=== PATIENT | male | born 1950 | race Caucasian/White ===

== ENCOUNTER 2017-01-05 01:13 | Inpatient (IN) | payer MEDICARE, MEDICAID ==
[~2017-01-05] VITALS: Ht 182.9 cm; Wt 100.0 kg
[2017-01-05] MEDS ORDERED: LORazepam 1 mg Tablet PO PRN (03:55)
[2017-01-05] MEDS ORDERED: Magnesium Hydroxide 10 mL Oral Concentration PO PRN (03:55)
[2017-01-05] MEDS ORDERED: Alum-Mag Hydrox-Simeth 30 mL Suspension PO PRN (03:55)
--- NOTE | 2017-01-05 04:06 | NUR ---
admit note nursing 11-7 this is a 66 year old male who was brought to [facility] from his residence at [facility]. he was medically cleared, evaluated and detained as gravely disabled. has a hx of schizophrenia, has refused medication on and off, declines assistance with adl's and cannot care for himself, appears to need stand by assistance to transfer and uses a wheelchair. he arrived by stretcher with ambulance crew and security at 0320. refused to allow staff to assist him [don't touch me] and crawled from the stretcher to the bed. unresponsive to staff attempt to orient patient and offer assistance. appears to be responding to internal stimuli muttering to himself. he is currently lying quietly in bed with direct staff observation. physical assessment- refused staff attempt to assess patient. shows no signs of apparent physical distress. patient unable to complete the admission process, given bed 230 with one to one staff direct observation and q 15 minute assessments. darian
[2017-01-05] MEDS ORDERED: FLUP25VI2 (07:06)
[2017-01-05] MEDS ORDERED: INSU100V7 SUBQ (07:06)
[2017-01-05] MEDS ORDERED: ASPI-973 PO (07:06)
[2017-01-05] MEDS ORDERED: LISI10TA (07:06)
[2017-01-05] MEDS ORDERED: LORA1TAB (07:06)
[2017-01-05] MEDS ORDERED: NOV100I SUBQ (07:06)
[2017-01-05] MEDS ORDERED: TOPI-31 (07:06)
[2017-01-05] MEDS ORDERED: PRAV80TA2 (07:06)
[2017-01-05] MEDS ORDERED: METF850T2 (07:06)
[2017-01-05] MEDS ORDERED: PIOG30TA26 (07:06)
[2017-01-05] MEDS ORDERED: INSULIN ASPART 5 UNIT SUBQ SCH (11:30)
--- NOTE | 2017-01-05 13:21 | NUR ---
Nursing Note [id number] Behavior S/O: Pt states he is not diabetic & never has been. Pt's blood sugar at 0800 was 281. At 1100 it was 271. Pt evaluated by psychiatrist. Pt has refused to walk to dining room & has not had breakfast or lunch. Radha Rutledge contacted ([phone]) at 1330. Pt has been in a wheel chair at least 12 years. Dx for immobility is osteoarthritis. Pt able to transfer & wheel safely. Pt given a w/c. He transferred himself to chair & wheeled himself to dining room for lunch. A: Pt has no insight into illnesses or why he is in the hospital. P: Provide supportive environment. Monitor medications & effects.
[2017-01-05 13:30] VITALS: BP 135/87; PULSE 106; RESP 16
[2017-01-05] MEDS ORDERED: Ziprasidone 20 mg/mL Inj IM PRN (13:50)
--- NOTE | 2017-01-05 15:07 | HP ---
[address] [address] HISTORY AND PHYSICAL PATIENT: SHARRI YOUNG : 1950 MR#: [id number] ADMIT: 01/05/2017 JOB ID: [id number] IDENTIFICATION OF PATIENT: The patient is a 66-year-old male admitted under 14-day order from [place], [place]. The patient reportedly is a long-term client of [facility] treatment services with a noted history of schizophrenia paranoid type and recent refusal of medications with significant decline of function and concern of imminency of danger of self with refusal of all medications including insulin. CHIEF COMPLAINT: "I'm not diabetic. I have seen the world expert who is from [place] who indicated that there is nothing wrong with me." HISTORY OF PRESENT ILLNESS: As stated above, the patient is a 66-year-old male who reportedly was admitted via a 14-day order with significant concern of decline of function and status of grave disability. The patient reportedly has a long-term history of diabetes and is insulin dependent. He reportedly has refused all medications by history, including dose administration of Prolixin Decanoate 25 mg IM q.2 weeks, insulin Lantus and NovoLog, and additional medications for various other medical complexities. On interview the patient was quite paranoid and appeared to be responding to internal stimulus throughout. He made intermittent eye contact. He openly identified that he is unable to walk and requires a wheelchair. This was later confirmed via nursing staff that he has been wheelchair-bound at [facility] facility for the past 12 years. Evidently the patient has a history of osteoarthritis and that they have tried to intervene with physical therapy however the patient has refused and due to his significant impairment remains in a wheelchair. This was not noted with referral. In meeting with myself, lining caser, and the medical student, the patient again appeared to be quite paranoid, psychotic, he identified that he has met with the world expert on diabetes from [place] and that he was informed that he does not have diabetes. He indicated that he is originally from [place], [place], born and raised, graduated from [employer] and went to [employer] with no degree in the state of [place]. He indicates that he has lived in [place] for the past 12 years in various cities including [facility] and [place]. He denies any usage of alcohol or substances. He indicated that he was at the age of [age] but at other points of interview the patient denied that he was or had children. He indicates that he does have an older brother who resides in [place] who visits him periodically. PAST MEDICAL HISTORY: Substantial for no allergies to medications. MEDICATIONS: Of current include: 1. Metformin 850 mg b.i.d. 2. Actos 30 mg daily. 3. NovoLog 5 units t.i.d. with meals. 4. Lantus 35 units q.h.s. 5. He reportedly also is scheduled to receive Prolixin Decanoate 25 mg intramuscularly every two weeks and Prolixin 5 mg b.i.d. Last dose of administration is unknown at this time. PHYSICAL EXAMINATION: He refused a physical exam at this point. PAST PSYCHIATRIC HISTORY: Substantial for previous hospitalization at [facility]. Records will be obtained. He denies any recent hospitalization. SOCIAL HISTORY: Currently patient lives at the above residential treatment facility. He indicates that he was at the age of [age] however there is questionable validity. He denies any other family member involvement. He indicates that he does have a guardian assigned, Selina Sommers. FAMILY HISTORY: Unknown. DEVELOPMENT HISTORY: As noted above. MENTAL STATUS EXAMINATION: General appearance: The patient is semi-cooperative. He is disconnected from reality and shows visual tracking throughout. His speech is latent. His mood is mildly dysphoric. His affect is irritable, labile. His thought process shows loose and disorganized thinking. He has evidence of random flight of ideas. His thought content: He denied any evidence of current suicidal, homicidal ideation. He appears to be responding to internal stimulus. He denies evidence of auditory or visual hallucinations however there is question of validity. He was alert, oriented to place only. Attention and concentration are poor. Insight and judgment are poor. IMPRESSION: [place] I: Schizophrenia, paranoid type. AXIS II: Deferred. AXIS III: History of insulin dependent diabetes. AXIS IV: Stressors are noted for chronic mental health issues, noncompliance with medications. AXIS V: Global Assessment of Functioning, current 25. PLAN: 1. Recommendations for introduction of Geodon 20 mg intramuscular b.i.d. if the patient refuses oral doses of Prolixin at 5 mg b.i.d. 2. Second opinion has been signed by Dr. Thomson for the above order. 3. Continuation of Prolixin Decanoate 25 mg with increased dose regimens to 25 mg weekly for now. 4. Continuation of Lantus 35 units q.h.s., NovoLog 5 units t.i.d. with meals. 5. Continuation of lisinopril 10 mg daily. 6. Discontinuation of Ativan. 7. Continuation of aspirin 81 mg daily. 8. Discontinuation of Topamax. 9. Collaboration with current residential treatment facility as well as to [facility] for further records. MTDD
[2017-01-05] MEDS ORDERED: Glucose 40% Oral Gel 15 Gm Tube PO PRN (15:20)
[2017-01-05] MEDS ORDERED: Dextrose 10% 250 ML IV PRN (15:20)
[2017-01-05] MEDS: Insulin LISPRO Medium-Dose Scale SUBQ SCH ×3 (18:17→21:07)
--- NOTE | 2017-01-05 19:01 | NUR ---
Observations 0900 - 2130 Pt affect and mood was isolative, guarded and withdrawn. Pt was pleasant, polite and cooperative when approached. Pt maintained behavior throughout the shift. Pt was unsocial and mostly keeps to himself. Pt attended lunch and dinner in D.R. and ate 100% of his meals. Pt uses wc to get around the unit (see nurses note) Pt was observed every 15 minutes through the shift as ordered.
[2017-01-05] MEDS: FLUPHENAZINE DECANOATE 25 MG/ML IM SCH (21:00)
[2017-01-05] MEDS: Insulin GLARgine 100 Unit/mL Syringe SUBQ SCH (21:00)
--- NOTE | 2017-01-05 23:11 | NUR ---
Nurses Note Evening Patients' BS at [phone]. He received 13 units Lispro Insulin Sliding Scale. BS at HS = 296. Patient refused Lispro coverage and accepted Lantus 35units as scheduled. Patient also refused Prolixin Decanoate tonight as well. Patient has been isolative except for meals. He has been irritable, dismissive while constantly mumbling under his breathe. Will maintain q 15min. checks for safety and support.
--- NOTE | 2017-01-06 06:02 | NUR ---
nursing, nights, 11-7 s/o- has appeared to sleep after 2330 during q 15 minute assessments. a- no apparent distress. p- monitor behavior/emotional state, quality, times and amount of sleep, use and effect of medication. darian
[2017-01-06] MEDS: Insulin LISPRO Medium-Dose Scale SUBQ SCH ×5 (07:38→22:30)
--- NOTE | 2017-01-06 11:02 | NUR ---
day shift Nursing note S/O-"I do not want breakfast but I do need the urinal." Pt. did not want assistance to the BR. He prefers to keep to himself in his room and mutters under his breath. He declined when asked if he needed to go to the BR. He has indirect eye contact and responds to staff. He stated he would eat some lunch. He is cooperative and compliant when typewriter ribbon winder takes his blood sugar levels. A-Responding to internal stimuli. P-Monitor for safety per protocol. Assess efficacy of meds to manage target sxs. Encourage engagement with peers.
[2017-01-06 12:30] VITALS: BP 103/58; PULSE 90; RESP 15
--- NOTE | 2017-01-06 13:17 | PROG NOTE ---
[address] [address] PROGRESS NOTE PATIENT: SHARRI YOUNG : 1950 MR#: [id number] ADMIT: 01/05/2017 JOB ID: [id number] DATE: 01/06/2017 CHIEF COMPLAINT: "I took my medicine." This per patient report. HISTORY OF PRESENT ILLNESS: As stated above the patient did identify that he did take his medications as directed but evidently refused his Prolixin decanoate yesterday. He reportedly has been cooperating with administration of lisinopril, aspirin, and oral doses of Prolixin, and his injectable insulin. Clarification was noted through his previous residential treatment program that he had been wheelchair-bound over the past 12 years and he has been given usage at this time based on their previous attempts of intervention. On interview the patient was quite guarded. He made intermittent eye contact. He is essentially declined any further conversation and stated that he preferred to stay to his room. He does appear to be internally preoccupied throughout the course of conversation. OBJECTIVE: On mental status exam, he made intermittent eye contact. His speech was limited, concrete. His mood is mildly dysphoric. His affect is irritable, labile. His thought process: He denied any evidence of current suicidal, homicidal ideation. He was alert, oriented to place only. His attention and concentration are poor. Insight and judgment are poor. PHYSICAL EXAM: Vital signs of current: Temperature is 36.2, pulse 106, respirations 16, BP 135/87. MEDICATION REVIEW: Includes Lantus 35 units q.h.s., Humalog sliding scale with meals, Prolixin 5 mg b.i.d., Prolixin decanoate which the patient refused yesterday (he will be informed that he needs to cooperate with the administration), lisinopril 10 mg daily. ASSESSMENT: [place] I: Schizophrenia, paranoid type. [place] II: Deferred. [place] III: 1. History of insulin-dependent diabetes. 2. History of hypertension. [place] IV: Stressors are noted for chronic mental health issues, noncompliance with medications. [place] V: Global Assessment of Functioning of current 30. PLAN: 1. Recommendations for forced administration of Prolixin decanoate. 2. Continuation of all other medications noted. 3. Records are being obtained from [facility] with prior identification, also his current care providers noted.
--- NOTE | 2017-01-06 16:33 | NUR ---
Observations 0700 to 1900 Pt ate a snack. Pt has a flat but pleasant affect. Pt refused to set daily goal and declined to shower. Pt uses a wheel chair for mobility and uses a urinal. Pt spends free time sitting in room with no stimulation. Pt is not observed interacting with peers. Respirations were observed while asleep. Staff completed 15 min close observations as ordered.
[2017-01-06] MEDS: Insulin GLARgine 100 Unit/mL Syringe SUBQ SCH (22:29)
--- NOTE | 2017-01-06 22:50 | NUR ---
fast food shift lead [id number] Pt slept most of the shift and woke up to use the urinal. BG level 217. "I am only taking the Lantus and I don't want the other one." Refused Lispro 2unit;however, he took Lantus. Pt had very small emesis x1 and no other episodes noted. No behavioral issues or outburst. Continue to monitor for mood changes, emotional wellbeing, and q15min checks for safety. Care continues.
--- NOTE | 2017-01-07 05:35 | NUR ---
nursing, nights, 11-7 s- i don't need your help. can i have a snack ? o- up in wheel chair a start of the shift. resistant to staff offer of assistance. has appeared to sleep after 0145. assessed q 15 minutes. a- no apparent distress. p- monitor behavior/emotional state, quality, times and amount of sleep, use and effect of medication. darian
[2017-01-07] MEDS: Insulin LISPRO Medium-Dose Scale SUBQ SCH ×4 (07:42→20:52)
[2017-01-07 11:35] VITALS: BP 118/69; PULSE 16; RESP 16
--- NOTE | 2017-01-07 12:15 | PROG NOTE ---
[address] [address] PROGRESS NOTE PATIENT: SHARRI YOUNG : 1950 MR#: [id number] ADMIT: 01/05/2017 JOB ID: [id number] DATE: 01/07/2017 CHIEF COMPLAINT: "I did agree to take my insulin." This per patient report. HISTORY OF PRESENT ILLNESS: As stated above the patient did identify that he did agree finally to take his doses of insulin. He indicates that he does not believe that he is diabetic but he is willing to cooperate with staff in an attempt to get back home. He reports that he remains isolated to the room. He has refused participation in group activities and insists on using a wheelchair. He reportedly has been medication compliant with administration of insulin, both Lantus and Humalog, and doses of Prolixin 5 mg b.i.d. He reportedly remains compliant with lisinopril and aspirin as well. His blood sugars have been remaining in the low 260s. OBJECTIVE: On mental status exam he does have evidence of visual tracking throughout. He has refused any shower or other self-care. He has been semi compliant with medications with nursing encouragement. His speech is limited and concrete. His mood is dysphoric. Affect is labile. His thought process shows no evidence of racing thoughts, flight of ideas, loose or disconnected thinking. Thought content: He denied any evidence of suicidal, homicidal ideation. He continues to deny hallucinations of auditory, visual complexes; however, appears to be responding to internal stimulus throughout. No evidence of delusions other than the belief that he is not diabetic with previous identification that he met with a world renowned expert from [place]. He is alert. Oriented to time and place. His attention and concentration are fair. Insight and judgment are poor. PHYSICAL EXAMINATION: Vital signs of current: Temperature is 36.2, pulse 90, respirations 15, BP 103/58. MEDICATION REVIEW: Includes Lantus 35 units q.h.s.; Humalog sliding scale, 10 units were given this morning; Prolixin 5 mg b.i.d.; lisinopril 10 mg daily. ASSESSMENT: [place] I: Schizophrenia, paranoid type. [place] II: Deferred. [place] III: 1. History of insulin-dependent diabetes. 2. History of hypertension. [place] IV: Stressors are noted for chronic disturbance of mental health, noncompliance with medications. [place] V: Global Assessment of Functioning of current 35. PLAN: 1. Recommendations for continuation of all medications noted. 2. Recommendations for collaboration with his previous care providers with eventual plan of discharge and return. JAIR
--- NOTE | 2017-01-07 13:45 | NUR ---
Nursing Dayshift Morning blood glucose was 262. He initially declined his morning dose of Humalog stating "I only take Lantus. I don't take Humalog only Lantus." Informed pt this was short acting insulin to cover his meals. He then called out and stated "Nurse, I will take Humalog." Pt received regularly scheduled Humalog 5 units along with sliding scale Humalog 5 units. Pt using urinal at bedside and his bedside commode. Pt independently uses wheelchair to get around the unit. His noon blood glucose was 139, no extra coverage required. He received his noon time dose of Humalog 5 units without incident. Pt malodorous and encouraged to shower which he has done. When not out for meals pt has chosen to remain in his room. No delusional statements. He has maintained behavioral control.
--- NOTE | 2017-01-07 17:27 | NUR ---
Observations [id number] Pt isolative to room much of the day, not attending breakfast. Pt did attend lunch and dinner, but only eating about 50% of meals. He is limited with communication, very short responses to staff and didn't interact with other patients. Pt was encouraged strongly to shower due to body odor, he resisted but eventually showered. He continues to use urinal instead of bathroom. Pt did spend time in dining area in afternoon/evening. He was observed every 15 minutes of shift as directed.
[2017-01-07] MEDS: Insulin GLARgine 100 Unit/mL Syringe SUBQ SCH (20:52)
--- NOTE | 2017-01-08 04:25 | NUR ---
7p-7a PT has been in his room most of the night. Pt comes out for a snack and meds only. PT was noted to have some urine on his pants. WHen asked about it, the pt stated "sorry, it was an accident." Pt declined to change his scrubs even after he spilled water all over himself. PT uses w/c for mobilization and is able to transfer independently from chair to bed and BSC. When asked how he is feeling, pt answers "I am fine." He does not care to ellaborate. Mood is flat. BG at HS was 148 and did not require s/s. PT needed some persuasion to take his glargine, but did so. PT was offered ambien for sleep, but refused twice. Pt is currently sleeping. Will continue with current POC and monitor for any A/R.
[2017-01-08] MEDS: Insulin LISPRO Medium-Dose Scale SUBQ SCH ×4 (07:55→22:00)
[2017-01-08 08:50] VITALS: BP 110/62; PULSE 89; RESP 16
--- NOTE | 2017-01-08 11:50 | PROG NOTE ---
[address] [address] PROGRESS NOTE PATIENT: SHARRI YOUNG : 1950 MR#: [id number] ADMIT: 01/05/2017 JOB ID: [id number] DATE: 01/08/2017 CHIEF COMPLAINT: "I took my medicines, when do you think I can go back home." This is per patient report. HISTORY OF PRESENT ILLNESS: As stated above, the patient identified that he is cooperative with medication administration but per nursing staff, the patient continues to refuse injections of Prolixin Decanoate. He was informed that he is currently under a court order and that the medication needs to be administered. I have instructed the nursing staff to administer the injection today. MENTAL STATUS EXAMINATION: He was bright, cooperative, interactive. He denied any evidence of current suicidal, homicidal ideation. He continues to be mildly paranoid, but appropriate. He denies any evidence of active hallucinations, delusions. He was alert, oriented to time, place, and person. His attention and concentration are limited. His insight and judgment are poor. PHYSICAL EXAMINATION: Vital signs of current. Temperature is 36.2, pulse 89, respirations 16, BP 110/62. MEDICATION REVIEW: Includes: 1. Prolixin 5 mg b.i.d. 2. Prolixin Decanoate 25 mg IM q.2 weeks. 3. Aspirin 81 mg daily. 4. Lisinopril 10 mg daily. 5. Lantus 35 units at bedtime and sliding scale of Humalog. ASSESSMENT: [place] I:Paranoid schizophrenia. [place] II:Deferred. [place] III:1. History of insulin dependent diabetes. 2. History of hypertension. [place] IV:Stressors are noted for chronic mental illness; refusal of care. [place] V:GAF current 35. PLAN: 1. Recommendations for probable discharge on Sunday of this week back to his original supportive housing. 2. Continuation of all medications noted with injections of Prolixin and Decanoate to be administered today via nursing staff.
--- NOTE | 2017-01-08 14:37 | NUR ---
Nursing Dayshift Pt's morning BG was 176 requiring extra coverage of Humalog 1 unit, noon BG was 298 requiring extra coverage of Humalog 5 units. When not out for meals pt has chosen to remain in his room. No delusional statements. He has maintained behavioral control. Denies AVH. Continues to use a wheelchair to maneuver about the unit. He was offered a shower and he stated "I took one yesterday, I would like to take one tomorrow after breakfast." Pleasant upon interaction, isolative on the unit.
--- NOTE | 2017-01-08 16:49 | NUR ---
Observations [id number] Pt continues to isolate to room, limited interaction with peers and staff. Pt did attend all meals, eating an average of 50%. Pt not good with ADL's, strong body odor and lack of desire to shower. Staff encouraged showers throughout the day but pt declined. Pt sat on bed and was unable to get back in wheelchair, asking staff for help. Pt did not participate in any groups or unit activities. Pt was observed every 15 minutes of shift as directed.
--- NOTE | 2017-01-08 17:10 | NUR ---
nursing note: Mental status: Pt denies any SI or HI or thought disturbance. Is logical and linear in our conversation. Says he got here "because the wheel on my WC rolled off and I went to the office and they said there was no loaner and I was angry and raised my voice I guess and they called it a crisis." He is looking forward to going back to his place at [facility] where he has been for 9 years. Says he has a guardian named Selina Chief [employer] who is his guardian and may be working on a new wheelchair . "I have the money to pay for it." Physical: Denies pain, and reports sleeping well. BG at dinner was 122 and no sliding scale was needed.Says he's been in his WC for about 15 years, "but I can feed myself and shower by myself. "Grooming is poor and encouraged a shower but pt declined"I'll take one tomorrow" Got fresh scrubs and wipes and encouraged him to use these. Affect: flat with fairly good eye contact
[2017-01-08] MEDS: Insulin GLARgine 100 Unit/mL Syringe SUBQ SCH (21:00)
--- NOTE | 2017-01-09 05:05 | NUR ---
Observations 2300 to 0700 Pt was awake in [place] sitting in WC when my shift started and went to his room a short time later. Pt first appeared asleep at 2030 according to q15 check sheet, awoke at 2200 and back asleep from 0015 until 0345. Pt was observed every 15 minutes through the night as ordered. Pt had broken sleep and is currently awake in his room sitting up with lights off. When asked how he was doing he stated "fine".
--- NOTE | 2017-01-09 06:07 | NUR ---
Nursing Note Judge 11pm -7am Pt asleep at start of shift but got up several times throughout the night. No complaints voiced or observed. Monitored pt q 15 minutes for safety location and accountability
[2017-01-09] MEDS: Insulin LISPRO Medium-Dose Scale SUBQ SCH ×4 (07:54→21:27)
--- NOTE | 2017-01-09 10:46 | PROG NOTE ---
[address] [address] PROGRESS NOTE PATIENT: SHARRI YOUNG : 1950 MR#: [id number] ADMIT: 01/05/2017 JOB ID: [id number] DATE: 01/09/2017 CHIEF COMPLAINT: "I will agree to the shot today" this is per patient report. HISTORY OF PRESENT ILLNESS: As stated above, the patient did agreed to administer the Prolixin Decanoate with clear understanding that he needed to cooperate with all medication. He indicates that he has been informed that his guardian is cooperating and arranging transport back to [place] on Sunday of this week. He reportedly has been cooperative with all medication administration and also cooperative with staff with shower interventions this morning. He makes good eye contact this morning indicating that he is hopeful that he will be able to get back to his place. He did spend some time identifying that he has several friends at [employer] and states that he misses his own stuff. OBJECTIVE: On mental status exam he was cooperative, he maintained good eye contact. His speech was much more articulated. His mood was neutral. Affect was congruent. His thought process shows no evidence of racing thoughts, flight of ideas, loose or disconnected thinking. Thought content, he denied any evidence of current suicidal, homicidal ideation. He continues to deny any perceptual distortion of hallucinations, delusions but appears to be responding to internal stimulus throughout the daytime hours per staff report. He was alert, oriented to time, place, and situation. He was able to recall my name. His insight and judgment were fair. PHYSICAL EXAMINATION: Vital signs are current. Temperature is 36.2, pulse 89, respirations 16, BP 110/62. MEDICATION REVIEW: Includes: 1. Lantus 35 units at bedtime. 2. Humalog sliding scale, 6 units given this morning. 3. Prolixin 5 mg b.i.d. 4. Prolixin Decanoate to be administered today 25 mg IM. 5. Aspirin 81 mg daily. 6. Lisinopril 10 mg daily. ASSESSMENT: Margie I:Schizophrenia paranoid type Margie II:Deferred Margie III:1. History of insulin dependent diabetes 2. History of hypertension Margie IV:Stressors are noted for: 1. Disturbance of coping 2. Refusal of medications 3. Noncompliance as prior Margie V:GAF current 35 PLANS: 1. Recommendation to proceed for discharge on Sunday. 2. Continuation of all medications as noted.
[2017-01-09] MEDS: FLUPHENAZINE DECANOATE 25 MG/ML IM SCH (11:49)
--- NOTE | 2017-01-09 12:03 | NUR ---
Nursing Dayshift Pt received Prolixin 25mg IM without any difficulty. His Am BG was 176 with 1 unit of Humalog extra coverage given, noon BG was 149 with no extra coverage required. He has been eating meals, attending to ADLs to the best of his ability. He has clean clothing on and fresh bed linens. Pt likes to maintain his independence. Minimal engagement with peers or staff. Denies anxiety, depression or AVH. No behavioral outbursts. Continue to monitor and provide support as needed.
--- NOTE | 2017-01-09 20:05 | NUR ---
Nurses Note evening Patient has been isolative to his room except for dinner. He doesn't interact with peers and has been minimally verbal with staff. Patient has refused to tend to personal hygiene needs. He does accept medications and self administers his insulin. Will encourage verbalization of thoughts and concerns,continued medication compliance. Addendum: 01/09/17 at 2009 by YU DOLL RN Amended: Links added.
[2017-01-09] MEDS: Insulin GLARgine 100 Unit/mL Syringe SUBQ SCH (21:27)
[2017-01-10] MEDS: Insulin LISPRO Medium-Dose Scale SUBQ SCH ×4 (07:45→21:49)
--- NOTE | 2017-01-10 11:45 | NUR ---
Nursing Dayshift Pt remains reclusive and stays in his room but is out for meals. Morning BG was 119 and noon BG was 118, no extra coverage required. When approached by staff he stated "I am fine! I don't feel like talking right now!" Pt remains abrupt and denying any issues. He has remained behaviorally appropriate on the unit. Accepting scheduled medication.
--- NOTE | 2017-01-10 16:01 | PROG NOTE ---
[address] [address] PROGRESS NOTE PATIENT: SHARRI YOUNG : 1950 MR#: [id number] ADMIT: 01/05/2017 JOB ID: [id number] DATE: 01/10/2017 CHIEF COMPLAINT: "I think I'm doing good." This is per patient report. HISTORY OF PRESENT ILLNESS: As stated above, the patient openly identified significant improvement with his status. He denied any evidence of acute distress. His speech was of normal tone, frequency, and volume. He reports that he is aware that he will be transported back to his residential placement on Sunday. OBJECTIVE: On mental status exam, he was bright, cooperative, seen in the Day Area. He makes good eye contact. He denies any current distress. His speech is of normal tone, frequency, and volume. His mood is neutral. Affect was congruent. His thought process showed no evidence of racing thoughts, flight of ideas, loose or disconnected thinking. Thought content, he denied any evidence of current suicidal or homicidal ideation. No evidence of active hallucinations or delusions; however there is questionable validity. The patient maintains to be noted with mild degrees of paranoia and visual tracking. He was alert, oriented to time and place. Attention and concentration intact. Insight and judgment are gaining. PHYSICAL EXAMINATION: Vital signs are current. Temperature is 36.2, pulse 89, respirations 16, BP 110/62. MEDICATION REVIEW: Includes: 1. Lantus 35 units q.h.s. 2. Humalog sliding scale. 3. Prolixin 5 mg b.i.d. 4. Prolixin Decanoate 25 mg weekly. 5. Lisinopril 10 mg daily. ASSESSMENT: AXIS I: Schizophrenia, paranoid type. AXIS II: Deferred. AXIS III: 1. Insulin-dependent diabetes 2. Hypertension. AXIS IV: Stressors are noted for chronic mental health issues. AXIS V: Global Assessment of Functioning, current 35 PLAN: 1. Recommendations to continue with discharge on Sunday. 2. Continuation of all medications noted.
--- NOTE | 2017-01-10 18:37 | NUR ---
[facility] Day Shift Pt maintained behavioral control throughout the shift. Pt affect appears flat, blunt. Pt spends almost the entire shift resting in his room. Pt is not social with staff or peers when active on the unit. Pt is malodorous. Pt did not attend any group activities. Pt ate approx 30% of all meals.
[2017-01-10 18:43] VITALS: BP 150/65; PULSE 99; RESP 16
--- NOTE | 2017-01-10 18:43 | NUR ---
Inter Com Servicer/Counselor: S: "I think I'm doing good." O: Patient slept 5 hours last night per staff. Patient denies S/I and H/I. He also denies auditory and visual hallucinations. Depression and anxiety were not rated. This medical underwriter left a voice message for patient's out-patient regular senior care provider at [facility], requesting a call back to discuss patient's discharge. A: Patient is cooperative, bright, improving, insight and judgment are gaining. P: Follow the care plan, coordinate with out-patient providers.
[2017-01-10] MEDS: Insulin GLARgine 100 Unit/mL Syringe SUBQ SCH (21:08)
--- NOTE | 2017-01-10 23:51 | NUR ---
Nurses Note Evening Patient has remained isolative to his room except for meals. He refused encouragement to shower stating he would shower Sunday morning before discharge. His blood sugars have been within normal limits or only slightly elevated. He remains medication compliant without adverse effects. Will maintain q 15min checks for safety and support. Addendum: 01/10/17 at 8792 by YU DOLL RN Amended: Links added.
--- NOTE | 2017-01-11 05:02 | NUR ---
nursing, nights, 11-7 s- no i don't want to shower. ok i'll put those on. can i have some milk. no i'm ok. o- quiet in bed at the start of the shift. has appeared to sleep after 2300 to midnight. came to staff in wheelchair requesting milk. changed into clean scrubs. blood sugar is 128 at 0250. remained in his wheelchair until returning to bed at 0500. assessed q 15 minutes. a- inadequate sleep, quiet, appears clearer, uninterested in staff offer of assistance, no apparent physical distress. p- monitor behavior/emotional state, quality, times and amount of sleep, use and effect of medication. darian
[2017-01-11] MEDS: Insulin LISPRO Medium-Dose Scale SUBQ SCH ×4 (08:01→22:00)
[2017-01-11 08:40] VITALS: BP 133/63; PULSE 101; RESP 16
--- NOTE | 2017-01-11 14:41 | NUR ---
Nursing Dayshift Mohsen continues with no change. He did express his desire to call his guardian Selina but could not remember the number. Staff does not have this phone number. Morning blood glucose 153 w/ 1 unit Humalog extra coverage. Noon blood glucose 234 with extra coverage provided at that time. Pt remains isolative to his room. Minimal engagement with peers or staff.
--- NOTE | 2017-01-11 14:43 | PROG NOTE ---
[address] [address] PROGRESS NOTE PATIENT: SHARRI YOUNG : 1950 MR#: [id number] ADMIT: 01/05/2017 JOB ID: [id number] DATE: 01/11/2017 CHIEF COMPLAINT: "So do you think my guardian will pick me up." This is per patient report. HISTORY OF PRESENT ILLNESS: As stated above, the patient did identify that he is aware of our plan for discharge for tomorrow. Collaboration with his current guardian and [facility] in [place] is currently in process. There is some question whether the facility of prior will receive the patient back for care management. OBJECTIVE/MENTAL STATUS EXAMINATION: The patient's speech is somewhat hesitant and guarded. He was casually dressed in scrubs. He maintained good eye contact with myself but shows some elevated anxiety with new staff. His mood was mildly anxious. His affect is guarded. His thought process shows no evidence of racing thoughts, flight of ideas, loose or disconnected thinking. Thought content, he denied any evidence of current suicidal, homicidal ideation. No evidence of active hallucinations, delusions. He continues to be mildly paranoid. He was alert, oriented to time and place. Attention and concentration intact. 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 Insight and judgment are fair. PHYSICAL EXAMINATION: Vital signs are current. Temperature is 36.3, pulse 99, respirations 16, BP 150/65. MEDICATION REVIEW: Includes: 1. Lantus 35 units q.h.s. 2. Humalog sliding scale. 3. Prolixin 5 mg b.i.d. 4. Prolixin Decanoate, last injection on January 05, next injection scheduled for January 19. 5. Lisinopril 10 mg daily. ASSESSMENT: AXIS I: Schizophrenia, paranoid type. AXIS II: Deferred. AXIS III: 1. History of diabetes, insulin dependent. 2. History of hypertension. AXIS IV: History for chronic mental health issues, transitioning back to his previous residence. AXIS V: Global Assessment of Functioning, current 38. PLAN: 1. Recommendation for discharge tomorrow morning. 2. Continuation of all medications noted.
--- NOTE | 2017-01-11 17:44 | NUR ---
Dipper And Baker/Counselor: S: "I need Esperanza Sommers's phone number, she's picking me up tomorrow." O: Patient only slept 1 hour last night per staff. Patient denies S/I and H/I. He also denies auditory and visual hallucinations. Depression and anxiety were not rated. This typewriter aligner spoke with Jennifer at [facility], Jennifer stated that [place] will not allow patient to return upon discharge. This typewriter aligner spoke with patient's guardian, Christian, after speaking with Jennifer from [place] and informed Christian that patient is not allowed back at [facility]. Christian stated that [facility] needs to find a place for patient to go or keep patient in [facility] until we find housing for him (patient). Patient scheduled to discharge tomorrow. A: Patient is cooperative, bright, improving, insight and judgment are gaining. P: Follow the care plan, coordinate with out-patient providers.
--- NOTE | 2017-01-11 18:23 | NUR ---
Observations [id number] Pt continues to isolate to room, only attending meals. He responds with very short answers and presents as ambivalent. Pt continues to be malodorous and resistant to showering. Pt requested to obtain his guardians phone number in the afternoon. He attended all meals, eating 100%. He was observed every 15 minutes of shift as directed.
[2017-01-11] MEDS: Insulin GLARgine 100 Unit/mL Syringe SUBQ SCH (21:00)
--- NOTE | 2017-01-12 02:52 | NUR ---
Observations 1900 to 0700 Pt did not attend wrap up group. Pt ate a snack. Pt has a flat, blunt affect. Pt remains in wheelchair throughout shift and has poor hygiene. Pt maintained behavioral control and showed no signs of abnormal behavior. Pt refuses to sleep in bed and rest intermittently in and out bed. Pt respirations were observed when asleep. Staff completed 15 min close observations as ordered.
--- NOTE | 2017-01-12 05:38 | NUR ---
Medications Patient refused HS medications including HS blood glucose check and insulin. Offered medications multiple times but patient stated "not tonight". Patient instructed no further snacks would be given to prevent hyperglycemia in the morning since he refused his insulin and HS blood glucose checks. Will continue to encourage compliance.
[2017-01-12] MEDS: Insulin LISPRO Medium-Dose Scale SUBQ SCH ×4 (08:14→22:00)
[2017-01-12] MEDS: FLUPHENAZINE DECANOATE 25 MG/ML IM SCH (08:15)
--- NOTE | 2017-01-12 14:08 | PROG NOTE ---
[address] [address] PROGRESS NOTE PATIENT: SHARRI YOUNG : 1950 MR#: [id number] ADMIT: 01/05/2017 JOB ID: [id number] DATE: 01/12/2017 CHIEF COMPLAINT: "So, where am going to go?" This per patient report. HISTORY OF PRESENT ILLNESS: As stated above, the patient did identify that he is aware that he will not be going back to [facility]. Reportedly at this time EUGENE, the nurse case management, has informed the guardian that it is their responsibility to pursue alternative placement options. He reportedly last evening refused his Lantus per staff report and therefore was not given a snack last evening. He remains quite paranoid at times but is redirectable for self-care. Discussion was held with the treatment team that the patient will need to be placed in alternative placement options in the [facility] and his 14 day order will be running out next Sunday per report. The guardian will be held responsible for alternative placements. OBJECTIVE: On mental status exam, the patient made intermittent eye contact. He continues to be mildly paranoid and responding to internal stimulus. His medication administration included another dose of Prolixin decanoate at 25 mg. He remains on oral doses of Prolixin and has been cooperative with medication. His speech is of normal tone, frequency, and volume. His mood is neutral. Affect was congruent. His thought process showed no evidence of racing thoughts, flight of ideas, loose or disconnected thinking. Thought content: He denied any evidence of current suicidal or homicidal ideation. No evidence of active hallucinations or delusions. He was alert, oriented to time and place. Attention and concentration intact. Memory intact in the short term, medical terminologist, and recent. Insight and judgment are poor. PHYSICAL EXAMINATION: Vital signs are current: Temperature is 36.3, pulse 111, respirations 16, BP 133/63. MEDICATION REVIEW: Includes Lantus 35 units q.h.s., Humalog sliding scale, Prolixin 5 mg b.i.d., Prolixin decanoate last injection given this morning at 25 mg, lisinopril 10 mg daily, aspirin 81 mg daily. ASSESSMENT: Como I: Schizophrenia, paranoid type. Como II: Deferred. Como III: 1. Insulin-dependent diabetes. 2. History of hypertension. Como IV: Stressors are noted for absence of housing, chronic mental health issues. Como V: Global Assessment of Functioning of current 38. PLAN: 1. Recommendations for the guardian to be held responsible for alternative placement options due to concerns that [facility] has discharged the patient formally. I have suggested that the nurse case management inform [facility] of duty to inform the patient to inquire whether a 30 day notification was completed. 2. Recommendations for continuation of all medications as noted. 3. Continuation of supportive care with probable discharge on Sunday of next week for continuation of outpatient interventions.
[2017-01-12 14:39] VITALS: BP 116/77; PULSE 78; RESP 16
--- NOTE | 2017-01-12 18:22 | NUR ---
Nursing Dayshift: S: "You can do it in my stomach." O: Patient cooperative today with medications, blood sugar checks, and insulin. Fair appetite at meals. Denies anxiety, depression, harmful thoughts, and hallucinations. A: Quiet. Softspoken. P: CPOC. Monitor mood and behavior.
--- NOTE | 2017-01-12 19:28 | NUR ---
Observations 0700 - 1900 Pt affect and mood was isolative, guarded and withdrawn. Pt was pleasant, polite and cooperative when approached. Pt maintained behavior throughout the shift. Pt was unsocial and mostly keeps to himself. Pt attended lunch and dinner in [employer] and ate about 50% of his meals. Pt was isolative and was in his room most of the day. Pt took a shower but continues to be malodorous. Pt was observed every 15 minutes through the shift as ordered.
[2017-01-12] MEDS: Insulin GLARgine 100 Unit/mL Syringe SUBQ SCH (21:19)
--- NOTE | 2017-01-12 21:24 | NUR ---
Blocker Metal Base/Counselor: S/O: Patient slept 5 hours last night per staff. Patient denies S/I and H/I. He also denies auditory and visual hallucinations. Depression and anxiety were not rated. This literary writer spoke with Jennifer at [facility], Jennifer stated that [place] will not allow patient to return upon discharge. This literary writer told Jennifer that [facility] must issue a 20 day eviction notice, to the patient, prior to not allowing patient to go back to [facility]. Also if [facility] doesn't issue eviction notice to the patient first and follow through with proper procedures, [facility] [employer] will notify/report it to Adult Protective Services and Department of Health. Jennifer told this literary writer, "I know that I can make the decision if I want to and I don't care who you report it to. Go ahead and I'll just wait for an street openings inspector to come to [facility] and inspect!" A: Patient is cooperative, refusing insulin meds, very isolative, lack of self care, paranoid, responding to internal stimuli. P: Follow the care plan, coordinate with out-patient providers.
--- NOTE | 2017-01-13 06:41 | NUR ---
[id number]. nurs. Pt's OT 159 at HS pt took meds as sheduled and appeared to sleep for 8+ hours with one time out to get milk and a period when he chose to sleep in his room in his WC.
[2017-01-13] MEDS: Insulin LISPRO Medium-Dose Scale SUBQ SCH ×4 (07:57→22:00)
[2017-01-13 08:45] VITALS: BP 111/59; PULSE 91; RESP 16
--- NOTE | 2017-01-13 13:04 | PROG NOTE ---
[address] [address] PROGRESS NOTE PATIENT: SHARRI YOUNG : 1950 MR#: [id number] ADMIT: 01/05/2017 JOB ID: [id number] DATE: 01/13/2017 CHIEF COMPLAINT: "So, do you think my guardian will find another placement for me." This per patient report. HISTORY OF PRESENT ILLNESS: As stated above, the patient is aware that he cannot return to [facility]. I have reviewed documentation completed by nursing staff and social workers. Per report, the patient was informed that we will have to actually look for additional housing and treatment and the guardian has been informed of such. His court order will run out on Sunday. OBJECTIVE: On mental status examination, he was cooperative, polite. He maintained good eye contact throughout. His speech was of normal tone, frequency and volume. His mood was neutral. Affect was congruent. His thought process showed some difficulties with needs of redirection. He tended to be somewhat tangential and concerned about his placement. He denied any evidence of suicidal or homicidal ideation. There is a mild degree of paranoia. He denies any active hallucinations, delusions. He was alert, oriented to time and place. Attention and concentration intact. Memory intact in the short term, half-way, recent. Insight and judgment are fair. PHYSICAL EXAMINATION: Vital signs are current. Temperature is 36.1, pulse 91, respirations 16, BP 111/59. MEDICATION REVIEW: Includes: 1. Lantus 35 units q.h.s. 2. Sliding scale throughout the daytime. 3. Prolixin 5 mg b.i.d. 4. Prolixin Decanoate given last 25 mg. 5. Lisinopril 10 mg daily. ASSESSMENT: AXIS I 1. Schizophrenia, paranoid type. AXIS II Deferred. AXIS III 1. History of insulin dependent diabetes. 2. History of hypertension. AXIS IV Stressors are noted for chronic mental health issues, transition of housing. AXIS V Global assessment of functioning of current 35. PLANS: 1. Recommendations for continuation of all medications noted. 2. Continuation of disposition planning as noted.
--- NOTE | 2017-01-13 14:29 | NUR ---
Nursing Note [id number] Behavior S/O: Pt has good appetite. Conversation clear & organized with normal rate & rhythm. Pt requested to have his nails clipped. Fingernails clipped, but toenails are long & thick. Podiatry consult ordered. A supervisor game farm will attempt to come in the or as none is available until after the weekend. Pt's blood sugar was 135 this morning & 158 this afternoon. Nutritional dose given with sliding scale given at noon. Pt is requesting razor or scissors to trim vazquez. Not available. Pt is unwilling to take a shower. Conversation tracking clear & organized with normal rate & rhythm. Pt has flat affect. A: Pt is slowly improving in his ability for self care. P: Provide supportive environment. Monitor medications & effects.
--- NOTE | 2017-01-13 17:38 | NUR ---
Observations 0700 to 1900 Pt did not attend recreational activities. Pt is pleasant but remains isolative in room. Pts affect is flat and pts hygiene is poor. In afternoon pt asked I want to be moved to the wheelchair hsu. I informed pt there is no wheelchair hsu and a few minutes later pt told RN that he was being transferred to wheelchair hsu and refused to understand he would not be transferring units. Pt maintained behavioral control. While asleep, respirations were observed while asleep. Breakfast: 75%. Lunch: 75%. Dinner: 75%. Staff completed 15 min close observations as ordered.
[2017-01-13] MEDS: Insulin GLARgine 100 Unit/mL Syringe SUBQ SCH (22:17)
--- NOTE | 2017-01-13 22:18 | NUR ---
Nursing Note [id number] S: "I spoke to the director and was told that I was being transferred to a wheelchair unit". If not transferring, "then you don't need to talk to me". "I said that you don't need to speak to me". O: Patient in dining room in wheelchair. Refused to speak to machine sign writer this evening. Patient has poor hygiene, patient showered tonight, angry, yelling at times. A: Flat affect. Distant, manipulative. P: Monitor for response to treatment. Q 15 min checks for safety. Follow plan of care.
--- NOTE | 2017-01-14 06:54 | NUR ---
Nursing Note Storekeeper Helper 11pm to 7am Pt asleep at start of shift and remained asleep for the duration of the shift. No complaints voiced or observed. Monitored pt q 15 minutes for safety, location and accountability
[2017-01-14] MEDS: Insulin LISPRO Medium-Dose Scale SUBQ SCH ×4 (08:09→20:34)
--- NOTE | 2017-01-14 12:27 | NUR ---
Nursing Note [id number] Behavior S/O: Pt has good appetite. Conversation tracking clear & organized with normal rate & rhythm. Pt has only superficial conversation & states he is "fine." Pt has been agitated with staff. Poor eye contact. Juarez trimmed off this morning at pt's request. A: Pt unable to care for self. P: Provide supportive environment. Monitor medications & effects.
--- NOTE | 2017-01-14 14:33 | PROG NOTE ---
[address] [address] PROGRESS NOTE PATIENT: SHARRI YOUNG : 1950 MR#: [id number] ADMIT: 01/05/2017 JOB ID: [id number] DATE: 01/14/2017 CHIEF COMPLAINT: "I would like to get up on my wheelchair." HISTORY OF PRESENT ILLNESS: As stated above, the patient was seen in his room lying on the bed. He indicated that he was glad that staff assisted yesterday and had shaved his vazquez. He reportedly has cooperated with additional self-care including clipping his nails. Consultation has been obtained through podiatry for his toenails per nursing staff report. OBJECTIVE: On mental status exam, the patient maintained good eye contact. He denied any evidence of acute distress. His speech is of normal tone, frequency, and volume. His mood was neutral. Affect was congruent. His thought process shows no evidence of random flight of ideas, loose or disconnected thinking. Thought content: He denied any evidence of current suicidal, homicidal ideation. No evidence of active hallucinations, delusions. He was alert, oriented to time and place. Attention and concentration intact. Memory intact in the short term, terminologist, recent. Insight and judgment are fair. PHYSICAL EXAMINATION: Vital signs are current: Temperature is 36.1, pulse 91, respirations 16, BP 111/59. MEDICATION REVIEW: Includes Lantus 35 units q.h.s., Humalog sliding scale, Prolixin 5 mg b.i.d., aspirin 81 mg daily, lisinopril 10 mg daily. ASSESSMENT: [place] I: Schizophrenia, paranoid type. [place] II: Deferred. [place] III: 1. History of hypertension. 2. History of insulin-dependent diabetes. [place] IV: Stressors are noted for absence of housing, chronic mental health issues. [place] V: Global Assessment of Functioning of current 40. PLAN: 1. Recommendations to collaborate with care providers including guardian for disposition planning. It is my understanding that [facility] has declined acceptance of the patient for return. 2. Continuation of all medications as noted.
--- NOTE | 2017-01-14 18:05 | NUR ---
NURSING NOTE [id number] Mood: "fine" Affect: flat, terse Behavior: mostly isolating to his room, where he sits in his wheelchair. Did come out for meals. Dinner FSBS 204, 3 u correctional insulin given. Thought processes: denies depression/SI/HI/AH/VH. No delusional thought content noted. Difficult to assess pt's thought processes in detail as he does not wish to speak w/this ticket writer or other staff this evening.
[2017-01-14] MEDS: Insulin GLARgine 100 Unit/mL Syringe SUBQ SCH (20:33)
[2017-01-15] MEDS: Insulin LISPRO Medium-Dose Scale SUBQ SCH ×5 (08:01→20:27)
--- NOTE | 2017-01-15 12:03 | NUR ---
Nursing Dayshift Pt more visible on the unit. Small smiles to self and visibly talking to self. He was watching an old comedy re-run this morning and noted to be chuckling to self. Pleasant upon interaction and politely asked for a yogurt. Eating at all meals. Blood glucose in am 125 with no extra coverage, noon 163 with 1 unit Humalog extra coverage. Taking medications as prescribed. No complaints or distress noted.
[2017-01-15] MEDS: Insulin GLARgine 100 Unit/mL Syringe SUBQ SCH (20:29)
--- NOTE | 2017-01-15 21:03 | NUR ---
NURSING NOTE [id number] Mood: "Alright" Affect: flat, needy upon approach Behaviors: mostly isolating to his room, in bed. Pt. has been able to get in and out of bed independently and nut picker and place his urinal down independently, however, whenever this sql report writer approaches him in his room he insists that this sql report writer or "two of the strongest men you have here" help him get out of bed, retrieve his urinal for him, empty the urinal, etc. for him. When this sql report writer points out that the pt. has been capable of doing these actions independently he becomes frustrated and at times agitated. However, when challenged by this sql report writer, he did stand up on his own and seat himself in his wheelchair this evening as well as nut picker his urinal himself. Dinner FSBS was 136, HS FSBS 152. Thought processes: denies AH/VH though this sql report writer heard the pt. speaking to himself in his room, denies SI/HI/depression.
--- NOTE | 2017-01-15 21:52 | PROG NOTE ---
[address] [address] PROGRESS NOTE PATIENT: SHARRI YOUNG : 1950 MR#: [id number] ADMIT: 01/05/2017 JOB ID: [id number] DATE: 01/15/2017 CHIEF COMPLAINT: "Do you know if I am going to be able to get my own place or find a new place?" This is per patient report. HISTORY OF PRESENT ILLNESS: As stated above, the patient did identify that he is aware that [facility] is unwilling to receive him back in their care. He reports that he is hopeful that there will be alternative options. OBJECTIVE: Mental status exam: He is bright, cooperative, interactive. He maintains good eye contact. He has been a little bit more social today than over the weekend. His speech is of normal tone, frequency, and volume. His mood is neutral. Affect is congruent. His thought process shows no evidence of racing thoughts, flight of ideas, loose or disconnected thinking. Thought content: He denies any evidence of current suicidal, homicidal ideation. No evidence of active hallucinations, delusions. He was alert, oriented to person, place, time, situation. Attention and concentration intact. 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 Insight and judgment are poor. PHYSICAL EXAM: Vital signs of current: Temperature is 36.1, pulse 91, respirations 16, BP 111/59. MEDICATION REVIEW: Includes: 1. Lantus 35 units q.h.s. 2. Humalog sliding scale. 3. Prolixin 5 mg b.i.d. 4. Lisinopril 10 mg daily. ASSESSMENT: [place] I. Schizophrenia, paranoid type. [place] II. Deferred. [place] III. 1. History of insulin-dependent diabetes. 2. Hypertension. [place] IV. Stressors are noted for chronic disturbance of mental health, transition of life. [place] V. Global Assessment of Functioning current 40. PLANS: 1. Recommendations to discharge to the guardian's care. Alternative options are pending. 2. Continuation of all medications noted.
--- NOTE | 2017-01-16 00:38 | NUR ---
Observations 1900 to 0700 Pt did not attend wrap up group. Pt ate a snack. Pt continues to isolate in room and only leaves room to make a request. Pt maintained behavioral control. Pt has a flat affect and has poor hygiene. Pt appeared asleep at 2230 and has remained asleep. Pt respirations were observed when asleep. Staff completed 15 min close observations as ordered.
[2017-01-16] MEDS: Insulin LISPRO Medium-Dose Scale SUBQ SCH ×4 (07:52→20:37)
--- NOTE | 2017-01-16 13:06 | PROG NOTE ---
[address] [address] PROGRESS NOTE PATIENT: SHARRI YOUNG : 1950 MR#: [id number] ADMIT: 01/05/2017 JOB ID: [id number] DATE: 01/16/2017 CHIEF COMPLAINT: "I would like my case advocate at the [facility] to be my guardian." This per patient report. HISTORY OF PRESENT ILLNESS: As stated above, the patient did confirm that he would like to have a transition of guardian indicating that he feels that his guardian of current is not speaking forth correct information. The patient identifies that he knows that he will be going back to [place] on Sunday but there is no awareness of his current status of housing. Discussion was held with the treatment team yesterday about the plan and intent to discharge with possibility of transition into a detention care. OBJECTIVE: On mental status examination, he was cooperative, polite. He maintained good eye contact. He openly identified concerns about his guardian not expressing positive concerns for him. His speech is of normal tone, frequency and volume. His mood is neutral. Affect was congruent. His thought process shows no evidence of racing thoughts, flight of ideas, loose or disconnected thinking. Thought content: He denied any evidence of current suicidal, homicidal ideation. No evidence of active hallucinations, delusions. He was alert, oriented to time, place, person and situation. Insight and judgment are fair. PHYSICAL EXAMINATION: Vital signs of current. Temperature is 36.1, pulse 91, respirations 16, BP 111/59. MEDICATION REVIEW: Includes: 1. Lantus 35 units q.h.s. 2. Lispro sliding scale. 3. Prolixin 5 mg b.i.d. 4. Aspirin 81 mg daily. 5. Lisinopril 10 mg daily. ASSESSMENT: AXIS I Schizophrenia, paranoid type. AXIS II Deferred. AXIS III 1. History of insulin dependent diabetes. 2. History of hypertension. AXIS IV Stressors are noted for chronic disturbance of mental health, transition of life. AXIS V Global assessment of functioning of current 40. PLAN: 1. Continuation of all medications noted. 2. Planned discharge to detention care in [place] on Sunday with continuation of pursuit of outpatient interventions through [facility].
--- NOTE | 2017-01-16 15:13 | NUR ---
Nursing 7a-3p Pt has remained visible on the unit. Minimal interaction with peers. He will approach staff to have his needs met otherwise he keeps engagement to a minimum stating "I'm fine". Pt is smiling more and appropriate upon interaction. Declines offered activities. Taking medications as prescribed. Blood sugars are WNL and no extra coverage required. No complaints or behavioral issues.
--- NOTE | 2017-01-16 17:53 | NUR ---
NURSING NOTE [id number] Mood: "I don't know" Affect: mostly flat but has been seen smiling on occasion Behavior: mostly isolating to his room, out for meals and at one point came out and watched TV for a few minutes w/peers. Pt.'s dinner FSBS was 220 and he received 3 u correctional insulin. He has been med compliant. Staff continues to encourage the pt. to be more independent w/ADLs as he has been witnessed being able to perform them on his own but tends to ask staff to assist him with tasks he can perform himself. Pt. has been getting in and out of his wheelchair today independently. Thought processes: denies AH/VH, not seen or heard responding to stimulus this evening. Denies all other psychiatric issues or safety concerns.
[2017-01-16] MEDS: Insulin GLARgine 100 Unit/mL Syringe SUBQ SCH (20:36)
--- NOTE | 2017-01-16 23:37 | NUR ---
Observations 1900 to 0700 Pt did not attend wrap up group. Pt did not eat a snack. Pt remains isolative in room and does not interact with peers. Pt spends free time sitting in wheelchair. Pt maintained behavioral control. Pt respirations were observed when asleep. Pt appeared asleep at 2130 and has remained asleep. Staff completed 15 min close observations as ordered.
--- NOTE | 2017-01-17 02:36 | NUR ---
Nursing, NOC shift Patient noted to be asleep at beginning of shift; and remained asleep for the duration of the NOC. Continue Q15min safety and room checks.
[2017-01-17] MEDS: Insulin LISPRO Medium-Dose Scale SUBQ SCH ×4 (08:11→21:21)
--- NOTE | 2017-01-17 13:28 | PROG NOTE ---
[address] [address] PROGRESS NOTE PATIENT: SHARRI YOUNG : 1950 MR#: [id number] ADMIT: 01/05/2017 JOB ID: [id number] DATE: 01/17/2017 CHIEF COMPLAINT: "So, can I go back to [place]?" This per patient report. HISTORY OF PRESENT ILLNESS: As stated above, the patient identified that he is hoping that he can return back to [place]. I have discussed that our plan and intent is to return him back to his original community. Calls will be placed with the guardian once again and alternative options are being pursued through case management. OBJECTIVE: On mental status exam, he is cooperative, polite. He maintains good eye contact throughout. His speech is of normal tone, frequency, and volume. His mood is neutral. Affect was congruent. His thought process showed no evidence of racing thoughts, flight of ideas, loose or disconnected thinking. Thought content: He denied any evidence of current suicidal, homicidal ideation. No evidence of active hallucinations, delusions. He was alert, oriented to time and place. Attention and concentration intact. Memory intact in the short term, fpc, recent. Insight and judgment are fair. PHYSICAL EXAMINATION: Vital signs are current: Temperature is 36.1, pulse 91, respirations 16, BP 111/59. MEDICATION REVIEW: Includes Lantus 35 units q.h.s., Humalog sliding scale, Prolixin 5 mg b.i.d., aspirin 81 mg daily, lisinopril 10 mg daily. ASSESSMENT: [place] I: Schizophrenia, paranoid type. [place] II: Deferred. [place] III: History of hypertension. History of diabetes. [place] IV: Stressors are noted for chronic disturbance of mental health, transition of life, housing [place] V: Global Assessment of Functioning of current 40. PLAN: 1. Recommendations for continuation of all medications noted. 2. Continuation of pursuit of discharge on Sunday with transitions into local long term care. Notification of the guardian is to follow. JAIR
--- NOTE | 2017-01-17 18:09 | NUR ---
[id number]. nurs. S: "I'm fine, I want to go back to the [facility].. my guardian is also my psychiatrist " O: Pt out on unit to get meals and needs met, Pt taking sheduled meds. Pt stating he will take shower tomorrow. Pt with neutral to brighter affect. Pt denying all pxs. Pt using urinal and commode , but does transfer from bed to wc. Pt not appearing to be responding to internal stim. Pt continues to be isolative and not interact with others. Disposition is being followed up currently. P:CNCP
[2017-01-17 19:23] VITALS: BP 107/69; PULSE 68; RESP 16
--- NOTE | 2017-01-17 19:51 | NUR ---
Trench Pipe Layer/Counselor: S/O: Patient denies S/I and H/I. He also denies auditory and visual hallucinations. Depression and anxiety were not rated. A: Patient is cooperative, isolative, paranoid, fair insight and judgment. P: Follow the care plan, coordinate with out-patient providers.
[2017-01-17] MEDS: Insulin GLARgine 100 Unit/mL Syringe SUBQ SCH ×2 (21:00→21:58)
--- NOTE | 2017-01-18 05:01 | NUR ---
Nursing Noc Pt isolative to room and unwilling to converse with narrative writer. Pt at first refused evening medications and snack reporting its to late leave me along. Pt given time then reoriented by nurse the importance of medication compliance and patient agreed to and took medications as directed. HS blood sugar = 100, Pt given and consumed HS snack. Pt rested well throughout the night, Continuing to monitor mood/behavior, emotional state and sleep times with Q15 minute safety checks. CP
[2017-01-18] MEDS: Insulin LISPRO Medium-Dose Scale SUBQ SCH ×4 (08:00→22:00)
--- NOTE | 2017-01-18 13:13 | PROG NOTE ---
[address] [address] PROGRESS NOTE PATIENT: SHARRI YOUNG : 1950 MR#: [id number] ADMIT: 01/05/2017 JOB ID: [id number] DATE: 01/18/2017 CHIEF COMPLAINT: "So I get to go back to [place]." This is per patient report. HISTORY OF PRESENT ILLNESS: As stated above, the patient was informed by myself, AJ, and the medical student that we are planning on actually transitioning him back to the [facility]. I had spoken earlier with Christian, his guardian, who clearly is quite frustrated with the process, indicating that he does not have appropriate housing arranged at this time for the patient. I was very direct with Christian indicating that it is his responsibility as a guardian to provide appropriate housing and further care. Christian did take some offense to this with indication that he believes that there is a misunderstanding of what he can and cannot do. I did encourage Christian to find alternative placement options including a local hotel in [place] if there is an interim time period prior to the patient being placed in an assisted-living home. Christian is aware that we have filed complaints with [employer] and the Department of Health in reference to [facility] not accepting the patient back to their facility. OBJECTIVE: Mental Status Exam: The patient made intermittent eye contact. He did understand that he is going to be returned back to the [facility]. We have clarified that unfortunately transportation can not be formally ranged until Sunday, including [employer]tra[employer] to [place]. His speech is of otherwise normal tone, frequency, and volume. His mood and affect were stable. His thought process shows no evidence of random flight of ideas, loose or disconnected thinking. Thought content, he denied any evidence of current suicidal, homicidal ideation. No evidence of active hallucinations, delusions. He was alert, oriented to time and place. Attention and concentration intact. Memory intact in the short term, assisted, recent. Insight and judgment are poor. PHYSICAL EXAMINATION: Vital signs are current. Temperature is 36.7, pulse 68, respirations 16, BP 107/69. MEDICATION REVIEW: Includes: 1. Lantus 35 units q.h.s. 2. Sliding scale of Humalog. 3. Aspirin 81 mg daily. 4. Lisinopril 10 mg daily. 5. Prolixin 5 mg b.i.d. ASSESSMENT: AXIS I: Schizophrenia, paranoid type. AXIS II: Deferred. AXIS III: 1. History of insulin-dependent diabetes. 2. History of hypertension. AXIS IV: Stressors are noted for disturbance of coping, ineffective management of the patient's transition of care through the assigned guardian. AXIS V: Global Assessment of Functioning, current 35. PLAN: 1. Recommendations to discharge with a return back to the [facility] for continuation of care. Christian guevara guardian has been informed by myself and rn field case manager that it is his responsibility to coordinate further care including eventual and assisted living programs in their local community. 2. Appointments will be scheduled with [facility] in [place] accordingly for both medication management and case management services. 3. Recommendations for continuation of all medications noted. 4. Eventual transition including [employer]tra[employer] to return to [place] on Sunday.
--- NOTE | 2017-01-18 14:26 | NUR ---
[id number]. S: "No, I can't I'm having a kinetic attack! get out..... O: Pt taking meds as prescribed ,when approached in late am about having a shower as discussed yesterday pt becoming quickly angry did not want to clarify to staff what he experienced with a "kinetic attack" and asked staff to leave rm. [facility] later approaching pt to [facility]. him to shower and received a No! response. Pt out to get meals some time in [place] otherwise isolating in bedrm . Pt using commode and urinal and did have difficulty transferring in early am, appeared to slip, no further pxs. Pt not noting to be responding to internal stim. Pt exhibiting some altered thinking such as above mentioned comment otherwise not very verbal but will ask to have comfort needs met. P: CNCP
[2017-01-18 14:51] VITALS: BP 147/73; PULSE 94; RESP 18
[2017-01-18] MEDS: Insulin GLARgine 100 Unit/mL Syringe SUBQ SCH (21:02)
--- NOTE | 2017-01-19 05:15 | NUR ---
nursing, nights, 11-7 s/o- has appeared to sleep after 0030 during q 15 minute assessments. a- no apparent distress. p- monitor behavior/emotional state, quality, times and amount of sleep, use and effect of medication. darian
[2017-01-19] MEDS: Insulin LISPRO Medium-Dose Scale SUBQ SCH ×4 (08:16→20:59)
[2017-01-19 10:20] VITALS: BP 137/73; PULSE 87; RESP 18
--- NOTE | 2017-01-19 11:04 | PCM.PNPSY ---
Subjective Date of Service Jan 19, 2017 Subjective I spent 30 minutes both reviewing treatment plan with our clinical team, interviewing the patient and providing supportive/educational psychotherapy. I spent more than 50% of the time counseling the patient. I reviewed the treatment plan with the him and discussed options available including the potential risks, benefits and side effects. Mohsen reports a marked improvement in thought organization and mood stability. Staff reports that he has been isolative and participating well in one-to-one unit and group activities. He slept 6 hours and denies depression or manic or psychotic symptoms review. He denies medication side effects. He was able to identify his medications and what they were used to treat. He is requesting discharge today and is working with our case sealer to set up transportation. Mental Status Exam Appearance: Disheveled Attitude: Cooperative Behavior: No unusual behavior Affect: Well Modulated/Appropriate Mood: Euthymic Thought Process/Associations: Goal Directed Speech Production: Normal Speech Rate: Normal Speech Articulation: Normal Thought Content: Appropriate Danger to Self/Suicidal Ideati: None Danger to Others: None Consciousness: Alert Orientation: Person, Date, Situation Memory: Grossly Intact Estimate Intellectual Function: Average Basis for IQ estimate: Awareness current events, Word use/vocabulary Attention/Concentration & Cogn: Grossly Intact Insight: Limited Judgement: Limited Mental Health Plan Halina 66-year-old male admitted under 14-day order from [place], [place]. The patient reportedly is a long-term client of [facility] for assistance with schizophrenia paranoid type and recent refusal of medications with significant decline of function and concern of imminency of danger of self with refusal of all medications including insulin. Here on the unit he has been difficult to engage but he has been participating. He denies suicidal ideation or psychiatric symptoms. He is currently on a voluntary basis After agreeing to sign in and plans to return to his home via Amtrak on Sunday. [place] AXIS I: Schizophrenia, paranoid type. AXIS II: Deferred. AXIS III: 1. History of insulin-dependent diabetes. 2. History of hypertension. AXIS IV: Stressors are noted for disturbance of coping, ineffective management of the patient's transition of care through the assigned guardian. AXIS V: Global Assessment of Functioning, current 45 Treatments Patient is being provided with a high degree of safety through our unit structure and active adult engagement provided by our mental health professionals, mental health technicians, psychiatric nurses and myself. We are focusing on developing improved coping skills and identifying stressors that may have led to current episode. We will attempt to: * Integrate into therapeutic groups, milieu and individual therapy. * Maintain in a closely monitored and structured unit * Provide low-stimulation environment * Assess degree of lability of affect and impulse control * Complete safety plan * Establish a consistent sleep pattern * Medication effective in stabilization of mood and/or thought process * * * Patient will be on the following psychiatric medications: Prolixin 5 mg twice a day Insulin Lantus 35 units subcutaneous at bedtime Insulin Humalog subcutaneous per sliding scale scale protocol Lisinopril 10 mg daily Labs: Education: Educate patient about recreational drug use as an etiology Educate about metabolic etiologies related to obesity Patient's legal status Voluntary Anticipated number of hospital days to achieve above goals: 3 Disposition: Patient is been staying in [facility] for over a decade. There is some question about whether he has been affected. He has a guardian and our case sealer is working with a guardian to find a reasonable disposal for Sunday. Bird Thomson MD Jan 19, 2017 11:04
--- NOTE | 2017-01-19 15:14 | NUR ---
Nursing Note [id number] Behavior S/O: Pt has good appetite. Blood sugar at 0730 was 118 & 1130 was 101. Pt concerned about discharging next week. Pleasant & cooperative with peers & staff. Wound consult to cut pt's toenails. Pt able to transfer in & out of w/c himself. Pt showered this morning. Full affect. A: Pt improving slowly. P: Provide supportive environment. Monitor medications & effects.
--- NOTE | 2017-01-19 16:24 | NUR ---
Inpatient Wound and Ostomy Nurse Patient seen for toenail trimming. Patient would be more appropriately served with nail debridement which is not provided in the inpatient setting due to particulate spread. Nearly every nail is thickened with fungus and areas of black fungus noted within nail layers. Extensive BLE xerosis is noted. All nails were trimmed; however, multiple nails require sanding, and so, patient was encouraged to see podiatry as outpatient as soon as convenient. Patient explained that "I can't stand the sanding," which is a common complaint in neuropathic feet because of vibratory quality. Nails were reduced and patient was satisfied with care. A 0.1 cm L x 1 cm W skin tear was sustained at frontal plane of R great toe due to torque pressure of such thickened nails in clippers. This thickened nail has grown inward/downward into nail bed and began to lift, causing skin tear, when CWON RN attempted to reduce thickness with clippers. Wound was cleansed and ABO ointment and Band Aid applied. Patient should be seen by podiatry or Certified Foot Care Nurse after discharge.
--- NOTE | 2017-01-19 19:26 | NUR ---
Metal Gauge Maker/Counselor: S:"I need to speak to Josh Mccall at [facility]." O: Patient denies S/I and H/I. He also denies auditory and visual hallucinations. Depression is 0/10 and anxiety is 0/10. A: Patient is cooperative, disheveled, euthymic, limited insight, limited judgment. P: Follow the care plan, coordinate with out-patient providers. Addendum: 01/19/17 at 1931 by NICOLASA PADILLA [facility] This message left a voice message for patient's guardian, Christian, requesting a return call. Did not receive a return call.
[2017-01-19] MEDS: Insulin GLARgine 100 Unit/mL Syringe SUBQ SCH (20:57)
--- NOTE | 2017-01-19 21:10 | NUR ---
Observations 0900 - 0 Pt affect and mood was isolative, flat but much brighter when engaged. Pt was in his room most of the morning. Pt was pleasant, polite and cooperative when approached. Pt maintained behavior throughout the shift. Pt thought that he was leaving today and is very excited to be discharging soon. Pt attended lunch and dinner in D.R. and ate 100% of his meals. Pt declined to attend group and unit activities. Pt was observed every 15 minutes through the shift as ordered.
--- NOTE | 2017-01-19 22:17 | NUR ---
[id number]. nurs. S/O: Pt mostly in rm except for meals and snacks, appreciative of wound care tx of toe nails. Pt with brighter affect, brief responses. No angry or frustrated verbal expression. Pt taking meds as sheduled dinner BS 118 and 132 at HS.
--- NOTE | 2017-01-20 05:46 | NUR ---
nursing, nights, 11-7 s-no thank you. o- has appeared to sleep 2099 to 2144. sat in the soto watching staff while rocking slowly till 0200 then alternated between his room and the soto. politely declined repeated offers of assistance from staff. returned to bed at 0430 and appeared to sleep after 0500. assessed q 15 minutes. a- inadequate sleep, may be responding to internal stimuli, no apparent physical distress. p- monitor behavior/emotional state, quality, times and amount of sleep, use and effect of medication. darian
[2017-01-20] MEDS: Insulin LISPRO Medium-Dose Scale SUBQ SCH ×4 (08:12→21:36)
--- NOTE | 2017-01-20 11:20 | NUR ---
day shift nursing note S/O-Pt. was guarded when asked to get his blood sugar..."prick it here, not there." He reported he slept well last night and has had a good appetite. He comes out of his room for meals but at other times prefers to keep to himself. He denies hallucinations, depression or anxiety. He also did not want teletypewriter installer to remove an empty cup form his room. He has a blunted affect. He does not want help emptying his urinal and transfers without help from his WC to his bed easily. A-Getting to baseline functioning. Paranoid at times. P-Monitor for safety per protocol. Assess efficacy of meds to manage target sxs. Encourage engagement with peers.
[2017-01-20 11:22] VITALS: BP 120/70; PULSE 85; RESP 16
--- NOTE | 2017-01-20 15:17 | NUR ---
Observations 0700 - 1900 Pt affect and mood was isolative, flat but bright when engaged and guarded. Pt was in his room most of the morning sitting in his wheelchair rocking back and forth. Pt was pleasant, polite and cooperative when approached. Pt maintained behavior throughout the shift. Pt attended lunch and dinner in D.R. and ate 100% of his meals. Pt ate snack. Pt declined to attend unit activities. Pt was observed every 15 minutes through the shift as ordered.
[2017-01-20] MEDS: Insulin GLARgine 100 Unit/mL Syringe SUBQ SCH (21:33)
[2017-01-21 08:26] VITALS: BP 116/67; PULSE 78; RESP 16
[2017-01-21] MEDS: Insulin LISPRO Medium-Dose Scale SUBQ SCH ×4 (08:36→21:09)
--- NOTE | 2017-01-21 17:02 | NUR ---
Observations [id number] Pt continues to isolate to room much of the day. Pt quiet, flat, and despondent. He attended all meals, eating an average of 75%. Pt still does not participate in any group activities and has limited social interaction with both peers and staff. Pt continues to struggle with ADL's, did not shower this shift and continues to have an odorous room. Pt was observed every 15 minutes of shift as directed.
--- NOTE | 2017-01-21 19:11 | PCM.PNPSY ---
Subjective Date of Service Jan 20, 2017 Subjective Blood sugar 105. The patient states that he is "fine" and denies any problems. He states that he will be "picked up by my bio parents today." He reports that they are 10 years older than he. He states the date is January [facility] (the location of [facility]). He abruptly terminates the conversation stating "I do not want to continue this conversation." Sleep: 2 hours Appetite: "Fine" Suicidal and homicidal ideation: Denies Auditory hallucinations: Denies Visual hallucinations: Denies Other Psychotic Symptoms: Paranoia Anxiety: Denies Depression: Denies Mental Status Exam Vital Signs Vital Signs Date Time Temp Pulse Resp B/P Pulse Ox O2 Delivery O2 Flow Rate FiO2 01/20/17 11:22 36.3 85 16 120/70 Appearance: Disheveled, Malodorous Attitude: Guarded Behavior: Overtly anxious Affect: Restricted Mood: Dysthymic Thought Process/Associations: Tangential Speech Production: Paucity Speech Rate: Lags/Latency Speech Articulation: Normal Thought Content: Negativistic, Suspicious Danger to Self/Suicidal Ideati: None Danger to Others: None Hallucinations: Auditory (Denies), Visual (Denies) Consciousness: Alert Orientation: Person, Place (somewhat) Memory: Short Term Memory (Impaired), Rv Technician Memory (Impaired) Estimate Intellectual Function: Average Basis for IQ estimate: Awareness current events, Word use/vocabulary Attention/Concentration & Cogn: Impaired Insight: Limited Judgement: Poor Mental Health Plan The patient is a 66-year-old male admitted under 14-day order from [place], [place]. The patient reportedly is a long-term client of [place] residential treatment services for assistance with schizophrenia paranoid type and recent refusal of medications with significant decline of function and concern of imminency of danger of self with refusal of all medications including insulin. Here on the unit he has been difficult to engage but he has been participating to a minimal degree. He denies suicidal ideation or psychiatric symptoms however he evidences significant paranoia. He is currently on a voluntary basis after agreeing to sign in and plans to return to his home via [employer] on Sunday though given his level of impairment this seems to be an unrealistic discharge plan. [place] AXIS I: Schizophrenia, paranoid type. AXIS II: Deferred. AXIS III: 1. History of insulin-dependent diabetes. 2. History of hypertension. AXIS IV: Stressors are noted for disturbance of coping, ineffective management of the patient's transition of care through the assigned guardian. AXIS V: Global Assessment of Functioning, current 35 Treatments 1. The patient is admitted to the inpatient unit and will be provided a safe and secure environment. 2. The patient is denying current active suicidality and is not in need of a one-to-one at this time. He is agreeing to notify us should he have any acute suicidal or homicidal thoughts. 3. The patient is encouraged to participate with group and milieu activities. 4. The patient will be seen by the treatment team on a daily basis to assess symptoms, side effects and response to treatment. 5. The patient will be continued on fluphenazine 5mg po bid consider increasing dose. 6. The patient will be continued on Insulin Humalog subcutaneous per sliding scale scale protocol 7. Lisinopril 10 mg daily 8. He has a guardian and our rn case manager is working with a guardian to find a reasonable disposal for Sunday. 9. Anticipated length of stay is 2-3 days. Estrada Jackson MD Jan 20, 2017 19:13
--- NOTE | 2017-01-21 19:16 | PCM.PNPSY ---
Subjective Date of Service Jan 21, 2017 Subjective The patient states today "I only deal with Dr. Reddy and Dr. Thomson." He repeated this multiple times before eventually agreeing to briefly speak to this rewriter. He denied side effects. Sleep: 3.75 hours Appetite: "Okay" Suicidal and homicidal ideation: Denies Auditory hallucinations: Denies Visual hallucinations: Denies Other Psychotic Symptoms: Paranoia Anxiety: Denies Depression: Denies Mental Status Exam Appearance: Disheveled, Malodorous Attitude: Guarded Behavior: Overtly anxious Affect: Restricted Mood: Dysthymic Thought Process/Associations: Tangential Speech Production: Paucity Speech Rate: Lags/Latency Speech Articulation: Normal Thought Content: Negativistic, Suspicious Danger to Self/Suicidal Ideati: None Danger to Others: None Hallucinations: Auditory (Denies), Visual (Denies) Consciousness: Alert Orientation: Person, Place (somewhat) Memory: Short Term Memory (Impaired), Fpc Memory (Impaired) Estimate Intellectual Function: Average Basis for IQ estimate: Awareness current events, Word use/vocabulary Attention/Concentration & Cogn: Impaired Insight: Limited Judgement: Poor Mental Health Plan The patient is a 66-year-old male admitted under a 14-day order from [place], [place]. The patient reportedly is a long-term client of [place] residential treatment services. He has received treatment for schizophrenia, paranoid type and has had a recent refusal of medications with significant decline of function. There was a concern for imminent danger to self with refusal of all medications including insulin. Here on the unit he has been difficult to engage but he has been participating to a minimal degree. He denies suicidal ideation or psychiatric symptoms however he evidences significant paranoia. He is currently on a voluntary basis after agreeing to sign in and a treatment plan been put in place for him to return to his home via [employer] on Sunday though given his level of impairment this seems to be an unrealistic discharge plan. [place] AXIS I: Schizophrenia, paranoid type. AXIS II: Deferred. AXIS III: 1. History of insulin-dependent diabetes. 2. History of hypertension. AXIS IV: Stressors are noted for disturbance of coping, ineffective management of the patient's transition of care through the assigned guardian. AXIS V: Global Assessment of Functioning, current 35 Treatments 1. The patient is admitted to the inpatient unit and will be provided a safe and secure environment. 2. The patient is denying current active suicidality and is not in need of a one-to-one at this time. He is agreeing to notify us should he have any acute suicidal or homicidal thoughts. 3. The patient is encouraged to participate with group and milieu activities. 4. The patient will be seen by the treatment team on a daily basis to assess symptoms, side effects and response to treatment. 5. Continue fluphenazine 5 mg twice a day will have additional decannulated dose 25 mg on 01/26/2017. 6. The patient will be continued on Insulin Humalog subcutaneous per sliding scale scale protocol 7. Lisinopril 10 mg daily 8. He has a guardian and our counter caser is working with a guardian to find a reasonable disposal for Sunday although it is unclear where this might be. 9. Anticipated length of stay is 2-3 days. Estrada Jackson MD Jan 21, 2017 19:16
[2017-01-21] MEDS: Insulin GLARgine 100 Unit/mL Syringe SUBQ SCH (20:56)
--- NOTE | 2017-01-22 05:29 | NUR ---
Nightshift Nurse Note 11pm to 7am: Pt was in bed at the beginning of the shift at 2300 and appeared to sleep through the night. Pt was monitored q 15 minutes for safety, location, and accountability
[2017-01-22 07:45] VITALS: BP 111/66; PULSE 77; RESP 16
[2017-01-22] MEDS: Insulin LISPRO Medium-Dose Scale SUBQ SCH ×4 (07:49→22:00)
--- NOTE | 2017-01-22 12:40 | PCM.DIMED ---
Discharge Instructions Date of Service Jan 22, 2017 Dates of Hospitalization Jan 05, 2017 at 03:19 Discharge Diagnosis Discharge Diagnosis AXIS I: Schizophrenia, paranoid type. AXIS II: Deferred. AXIS III: 1. History of insulin-dependent diabetes. 2. History of hypertension. AXIS IV: Stressors are noted for disturbance of coping, ineffective management of the patient's transition of care through the assigned guardian. AXIS V: Global Assessment of Functioning, current 35 Diet Discharge Diet: No restrictions Activity Discharge Activity: No restrictions Patient Instructions Patient Instructions Should you have any thoughts of harming yourself or others, please call the crisis line, your provider, 911, or go to the nearest Emergency Department. Do not change or discontinue your medications without discussing with your provider. You have been given a prescription for 30 days supply of your new medication Follow-up plan Per previous arrangement by Dr. Reddy with your guardian. Estrada Jackson MD Jan 22, 2017 12:40
[2017-01-22] MEDS ORDERED: NOV100I SUBQ (12:47)
[2017-01-22] MEDS ORDERED: FLUP25VI2 IM (12:47)
[2017-01-22] MEDS ORDERED: FLUP5TAB PO (12:47)
--- NOTE | 2017-01-22 14:16 | NUR ---
nursing note dayshift S)"I can't wait to meet my biological family for this body" O) [facility], arrangements being made for transport, took shower ate meals, dressed in clothes for discharge, pleasant on approach and cooperative with medications and insulin management A) anticipating discharge, cooperative with medications P) discharge to [place] pending transport
--- NOTE | 2017-01-22 16:24 | NUR ---
Germ Drier/Counselor S: "How do I board the train?" O: Patient denies any SI or HI, no AVH, no anxiety or depression. A: Patient is scheduled to be discharged tomorrow. Case Management left 2 messages with his guardian, and phone calls have not been returned. Patient has been secluded in his bedroom, but has been cooperative. P: Follow care plan and coordinate with outside providers.
--- NOTE | 2017-01-22 16:57 | NUR ---
Observations 0900 - 0 Pt affect and mood remained same as previous. Pt was in his room most of the shift sitting in his wheelchair. Pt was pleasant, polite and cooperative when approached. Pt maintained behavior throughout the shift. Pt attended meals in D.R. and ate 100% of his meals. Pt ate snack. Pt declined to attend unit activities. Pt took a shower and was given some clothes to change into. Pt was able to fill out safety plan and early warning signs with the help of this bid writer. Pt was observed every 15 minutes through the shift as ordered.
--- NOTE | 2017-01-22 17:17 | PCM.PNPSY ---
Subjective Date of Service Jan 22, 2017 Subjective The patient reports that his case management rn is Josh Tucker. When discussing the plan to take a train to [place] he stated, "I do not know how to get on the train." When it was explained that he would be brought to the train station he asked for a wheelchair and stated his was in [place] and he had been brought on a "Johana." The also reviewed reported that he was excited as his family was waiting at the [employer] motel. He stated his "biological parents of Hardy Workman as well as the biological parents of his other self, Hardy Miller" were also waiting. He also stated that his might be waiting there and was wondering how she would get to [place]. Unfortunately, we were unable to arrange for a wheelchair and so had to postpone discharge. The guardian has also not returned phone calls. The patient was agreeable to staying in the hospital until this was sorted out. He denied side effects. Sleep: 7.25 hours, "fine" Appetite: "Fine" Suicidal and homicidal ideation: Denies Auditory hallucinations: Denies Visual hallucinations: Denies Other Psychotic Symptoms: Paranoia, delusions as above. Anxiety: Denies Depression: Denies Mental Status Exam Appearance: Disheveled, Malodorous Attitude: Guarded Behavior: Overtly anxious Affect: Restricted Mood: Dysthymic Thought Process/Associations: Loose, Tangential Speech Production: Paucity Speech Rate: Lags/Latency Speech Articulation: Normal Thought Content: Negativistic, Suspicious Danger to Self/Suicidal Ideati: None Danger to Others: None Hallucinations: Auditory (Denies), Visual (Denies) Consciousness: Alert Orientation: Person, Place (somewhat) Memory: Short Term Memory (Impaired), Assisted Memory (Impaired) Estimate Intellectual Function: Average Basis for IQ estimate: Word use/vocabulary, Educational history Attention/Concentration & Cogn: Impaired Insight: Limited Judgement: Poor Mental Health Plan The patient is a 66-year-old male admitted under a 14-day order from [place], [place]. The patient reportedly is a long-term client of [facility] residential treatment services. He has received treatment for schizophrenia, paranoid type and has had a recent refusal of medications with significant decline of function. There was a concern for imminent danger to self with refusal of all medications including insulin. Here on the unit he has been difficult to engage but he has been participating to a minimal degree. He denies suicidal ideation or psychiatric symptoms however he evidences significant paranoia and delusions as noted above. He is currently on a voluntary basis after agreeing to sign in and a treatment plan been put in place for him to return to his home via [employer] on Sunday. This has fallen through as a wheelchair is not available in the guardian is not returning calls. The patient is agreeable to waiting until this can be arranged. [place] AXIS I: Schizophrenia, paranoid type. AXIS II: Deferred. AXIS III: 1. History of insulin-dependent diabetes. 2. History of hypertension. AXIS IV: Stressors are noted for disturbance of coping, ineffective management of the patient's transition of care through the assigned guardian. AXIS V: Global Assessment of Functioning, current 35 Treatments 1. The patient is admitted to the inpatient unit and will be provided a safe and secure environment. 2. The patient is denying current active suicidality and is not in need of a one-to-one at this time. He is agreeing to notify us should he have any acute suicidal or homicidal thoughts. 3. The patient is encouraged to participate with group and milieu activities. 4. The patient will be seen by the treatment team on a daily basis to assess symptoms, side effects and response to treatment. 5. Continue fluphenazine 5 mg twice a day will have additional decannulated dose 25 mg on 01/26/2017. 6. The patient will be continued on Insulin Humalog subcutaneous per sliding scale scale protocol 7. Lisinopril 10 mg daily 8. Discharge will need to be postponed until wheelchair can be located and guardian contacted or at least notified. 9. Anticipated length of stay is 2-3 days. Estrada Jackson MD Jan 22, 2017 17:17
[2017-01-22] MEDS: Insulin GLARgine 100 Unit/mL Syringe SUBQ SCH (22:23)
--- NOTE | 2017-01-22 22:25 | NUR ---
Nurse Note Evening Shift 3pm to 11pm: Pt is resting in his room at the beginning of the shift, sitting in his wheelchair. Pt came into dayroom for dinner and medications. Pt spent the rest of the evening in his room. Pt monitored q 15 minutes for safety, location and accountability.
--- NOTE | 2017-01-23 04:23 | NUR ---
Observations 1900 to 0700 Pt did not attend wrap up group. Pt did not eat a snack. Pt continues to be the same as previous shift, in which he isolates to room in which he lays in bed or rest in wheelchairs. Pt appears internally preoccupied and only speaks to staff when has requests or approach by staff. Pt gives short, brief answers in a cheerful tone. Pt maintained behavioral control. Pt appeared asleep from 2130- 0000 and has remained asleep since 0130. Pt respirations were observed when asleep. Staff completed 15 min close observations as ordered.
--- NOTE | 2017-01-23 05:09 | NUR ---
Nursing Note Clutch Assembler 11pm to 7am Pt moving from sleeping in the wheelchair to sleeping in his bed. He was awake from 0000 to 0130 and went back to sleep for the duration of shift. Pt was pleasant and cooperative. Pt monitored q 15 minutes for safety, location and accountability
[2017-01-23 07:45] VITALS: BP 130/71; PULSE 79; RESP 16
[2017-01-23] MEDS: Insulin LISPRO Medium-Dose Scale SUBQ SCH ×4 (08:00→21:13)
--- NOTE | 2017-01-23 12:40 | NUR ---
nursing note dayshift S)"I am not leaving today?" O) pt cooperative, took medications without problems, pleasant on approach with quiet answers, out on milieu more today watched TV, not social with peers, able to transfer self in wheelchair, dressed in clothes, ate meals and snacks A) awaiting DC, cooperative, med compliant P) monitor medications, encourage participation in treatment, work towards DC
--- NOTE | 2017-01-23 15:02 | PCM.PNPSY ---
Subjective Date of Service Jan 23, 2017 Subjective The patient's guardian is refusing to grain picker the patient at the train station. They are also refusing to assist with placement. According to home and community services, there is one possible fpc to contact. The [facility] maintenance representative stated that the guardian reported having sent a list of a number of nursing homes which does not appear to reach anyone on the treatment team or at the [facility]. The patient reported that perhaps he could receive help from [facility] from Josh Caitlin however a call to [facility] revealed that he was no longer with their service and no one name Josh worked there. The patient also requested that we contact the [facility] mot but there was no response to the telephone number listed. The patient continued to report having both his body and another body and that both sets of parents one for each body waiting for him at the aforementioned motel. Sleep: 3.5 hours, "fine." "Fine" Appetite: Suicidal and homicidal ideation: Denies Auditory hallucinations: Denies Visual hallucinations: Denies Other Psychotic Symptoms: Delusions as above Anxiety: Denies Depression: Denies Mental Status Exam Vital Signs Vital Signs Date Time Temp Pulse Resp B/P Pulse Ox O2 Delivery O2 Flow Rate FiO2 01/23/17 07:45 36.4 79 16 130/71 Appearance: Disheveled, Malodorous Attitude: Guarded Behavior: Overtly anxious Affect: Restricted Mood: Dysthymic Thought Process/Associations: Loose, Tangential Speech Production: Paucity Speech Rate: Lags/Latency Speech Articulation: Normal Thought Content: Somatic preoccupation, Suspicious, Perseveration, Erotomanic Danger to Self/Suicidal Ideati: None Danger to Others: None Hallucinations: Auditory (Denies), Visual (Denies) Consciousness: Alert Orientation: Person, Place (somewhat) Memory: Short Term Memory (Impaired), Furnace Setter Memory (Impaired) Estimate Intellectual Function: Average Basis for IQ estimate: Word use/vocabulary, Educational history Attention/Concentration & Cogn: Impaired Insight: Limited Judgement: Poor Mental Health Plan The patient is a 66-year-old male admitted under a 14-day order from [place], [place]. The patient reportedly is a long-term client of [facility] treatment services. He has received treatment for schizophrenia, paranoid type and has had a recent refusal of medications with significant decline of function. There was a concern for imminent danger to self with refusal of all medications including insulin. The patient was subsequently converted to a voluntary stay. Here on the unit he has been difficult to engage but he has been participating to a minimal degree. He denies suicidal ideation or psychiatric symptoms however he evidences significant paranoia and delusions as noted above. He is currently on a voluntary basis after agreeing to sign in and a treatment plan been put in place for him to return to his home via [employer]tra[employer]; however, a wheelchair could not be procured nor with the guardian meet the patient at Station. The patient initially requested discharge but then when informed of the lack of placement and difficulty in returning him to [place] he was agreeable to staying in the hospital until a reasonable discharge plan could be arranged. At the present time we are awaiting a call back from the fpc in [place]. [place] AXIS I: Schizophrenia, paranoid type. AXIS II: Deferred. AXIS III: 1. History of insulin-dependent diabetes. 2. History of hypertension. AXIS IV: Stressors are noted for disturbance of coping, ineffective management of the patient's transition of care through the assigned guardian. AXIS V: Global Assessment of Functioning, current 35 Treatments 1. The patient is admitted to the inpatient unit and will be provided a safe and secure environment. 2. The patient is denying current active suicidality and is not in need of a one-to-one at this time. He is agreeing to notify us should he have any acute suicidal or homicidal thoughts. 3. The patient is encouraged to participate with group and milieu activities. 4. The patient will be seen by the treatment team on a daily basis to assess symptoms, side effects and response to treatment. 5. Continue fluphenazine 5 mg twice a day will have additional decannulated dose 25 mg on 01/26/2017. 6. The patient will be continued on Insulin Humalog subcutaneous per sliding scale scale protocol 7. Lisinopril 10 mg daily 8. Discharge will need to be postponed until fpc can be located. 9. Anticipated length of stay is 2-3 days. Estrada Jackson MD Jan 23, 2017 15:02
--- NOTE | 2017-01-23 15:24 | NUR ---
Obs Dayshift Pt has little to no change from the past week. Quiet, soft spoken, isolates to his room. Pt mostly sits in wheel chair in room, looking out the window, napping. Is able to get himself from chair to bed or toileting. Pt comes out for snacks, and meals. Pt needs to be encouraged on ADL's, often declining to shower. Good meals. Does not appear to be responding to IS, calm and appropriate demeanor.
--- NOTE | 2017-01-23 16:15 | NUR ---
Dry Wall Installer/Counselor S/O: Patient keeps in his room most of the day. He denies any SI or HI, no AVH, no anxiety or depression. A: Patient's guardian Christian has stated that he refuses to pick patient up at train station and that he does not "have the time" to find a mcc home for the patient. Nell with [facility] ([phone]) has recommended [facility], and Case management left a message to inquire about beds. Nell stated that patient needs an ECS facility. P: Follow care plan and coordinate with outpatient providers.
[2017-01-23] MEDS: Insulin GLARgine 100 Unit/mL Syringe SUBQ SCH (21:11)
--- NOTE | 2017-01-23 21:46 | NUR ---
Nurse Note Evening Shift 3pm to 11pm: Pt has spent most of the evening in his room, coming out to the dayroom for dinner and snack. Pt went to bed at approximately 2120. Pt monitored q 15 minutes for safety, location and accountability.
--- NOTE | 2017-01-24 06:25 | NUR ---
Sleep Pt sleeping in his wheelchair out in the dining room. When approached to go to his room and sleep he stated "No thank you!" He did go to his room to sleep when another patient accused him of peeing in her commode. He made a quick exit to his room and shut the door. He has remained asleep since for a total 4+ hours. Pt responding to internal stimuli talking and smiling to self.
[2017-01-24] MEDS: Insulin LISPRO Medium-Dose Scale SUBQ SCH ×4 (07:44→22:00)
[2017-01-24 11:44] VITALS: BP 104/61; PULSE 77; RESP 16
--- NOTE | 2017-01-24 12:50 | NUR ---
nursing note dayshift S)"I am too tired for a shower, please I will take one tomorrow" O) pt changed clothes but unwilling to take shower today, up in wheelchair most of day, ate meals, compliant with medications, denies any anxiety or depression, polite A) isolates, medication compliant, denies any pain or problems P) monitor medication effectiveness and monitor for safety
--- NOTE | 2017-01-24 14:32 | PCM.PNPSY ---
Subjective Date of Service Jan 24, 2017 Subjective The patient reports today that "my biological parents of my own body" are waiting for him in a motel in [place]. He goes on to say that there have been "15 bodies of Mohsen Mcconnell. The first body was 37 years old in 1949 and I had it for 2 years. 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 He also spoke "kinetically" with his "biological parents"about going to another mcc and he stated that they said "that is excellent, fabulous, go for it." The patient was agreeable to having a physical therapy assessment for need for a wheelchair and walker. The patient states that he is unable to walk more than a few steps without a wheelchair. He denies side effects. Sleep: 6+ hours Appetite: 5 Suicidal and homicidal ideation: Denies Auditory hallucinations: Denies, but see above. Visual hallucinations: Denies Other Psychotic Symptoms: Delusions and hallucinations as noted above. Anxiety: 0/10 Depression: 0/10 Mental Status Exam Vital Signs Vital Signs Date Time Temp Pulse Resp B/P Pulse Ox O2 Delivery O2 Flow Rate FiO2 01/24/17 11:44 36.2 77 16 104/61 Appearance: Disheveled, Malodorous Attitude: Cooperative, Guarded Behavior: Overtly anxious (tremor increased) Affect: Restricted Mood: Dysthymic Thought Process/Associations: Loose, Tangential Speech Production: Paucity Speech Rate: Lags/Latency Speech Articulation: Normal Thought Content: Somatic preoccupation, Suspicious, Perseveration, Erotomanic Danger to Self/Suicidal Ideati: None Danger to Others: None Delusions: Paranoid (Endorses), Somatic (Endorses) Hallucinations: Auditory (Endorses), Visual (Denies) Consciousness: Alert Orientation: Person, Place (somewhat) Memory: Short Term Memory (Impaired), Correction Memory (Impaired) Estimate Intellectual Function: Average Basis for IQ estimate: Word use/vocabulary, Educational history Attention/Concentration & Cogn: Impaired Insight: Limited Judgement: Poor Mental Health Plan The patient is a 66-year-old male admitted under a 14-day order from [place], [place]. The patient reportedly is a long-term client of [facility]. He has received treatment for schizophrenia, paranoid type and has had a recent refusal of medications with significant decline of function. There was a concern for imminent danger to self with refusal of all medications including insulin. The patient was subsequently converted to a voluntary stay. Here on the unit he has been difficult to engage but he has been participating to a minimal degree. He denies suicidal ideation or psychiatric symptoms however he evidences significant paranoia and delusions as noted above. He is currently on a voluntary basis after agreeing to sign in and a treatment plan been put in place for him to return to his home via [employer]tra[employer]; however, a wheelchair could not be procured nor would the guardian meet the patient at the train station. The patient appears to be slowly stabilizing. He is agreeable to a PT assessment for walker. At the present time we are awaiting a call back from the mcc in [place]. [place] AXIS I: Schizophrenia, paranoid type. AXIS II: Deferred. AXIS III: 1. History of insulin-dependent diabetes. 2. History of hypertension. AXIS IV: Stressors are noted for disturbance of coping, ineffective management of the patient's transition of care through the assigned guardian. AXIS V: Global Assessment of Functioning, current 35 Treatments 1. The patient is admitted to the inpatient unit and will be provided a safe and secure environment. 2. The patient is denying current active suicidality and is not in need of a one-to-one at this time. He is agreeing to notify us should he have any acute suicidal or homicidal thoughts. 3. The patient is encouraged to participate with group and milieu activities. 4. The patient will be seen by the treatment team on a daily basis to assess symptoms, side effects and response to treatment. 5. Continue fluphenazine 5 mg twice a day will have additional decannulated dose 25 mg on 01/26/2017. 6. The patient will be continued on Insulin Humalog subcutaneous per sliding scale scale protocol 7. Lisinopril 10 mg daily 8. Discharge will need to be postponed until mcc can be located. 9. PT consult for walker to assess need for wheelchair. 10. Anticipated length of stay is 2-3 days. Estrada Jackson MD Jan 24, 2017 14:32
--- NOTE | 2017-01-24 16:32 | NUR ---
Obs Dayshift Pt keep to himself, will sit in the milieu people watching at times thru out the day. Other dixon he is in his room in his chair or in bed. Pt tends to Isolate, giggles at times, quiet, polite when approached. Pt does not participate in any activity on the unit. Pt needs encouragement for personal hygiene, showering, picking up after himself, etc. Good meals
--- NOTE | 2017-01-24 19:58 | NUR ---
Member Of The Legislative Assembly/Counselor: S: "I've been in 15 different bodies." O: Patient slept 6+ hours last night per staff. Patient denies S/I and H/I. He also denies auditory and visual hallucinations. Depression is 0/10 and anxiety is 0/10. "This is not my real body. I've been in this body since 1972. This body is Mohsen Mcconnell, I was born in [birth year]. My 1st body, I was in for 2 years. Then I was in Mohsen Cullen's body in 1950." A: Patient is cooperative, disheveled, malodorous, guarded, anxious, restricted affect, dysthymic, tangential, paranoid, limited insight, poor judgment. P: Follow the care plan, coordinate with out-patient providers.
[2017-01-24] MEDS: Insulin GLARgine 100 Unit/mL Syringe SUBQ SCH (20:13)
--- NOTE | 2017-01-24 20:46 | NUR ---
Nursing Angelique Pt retired to bed early. He was sleeping in bed at the start of shift. He did awaken to receive his HS medication. HS OT was 176 no extra coverage required. He returned to sleep and has had no complaints or noted distress. Will continue to monitor and assess sleep cycle through the night. Addendum: 01/25/17 at 0417 by YOON STEVENSON RN Pt has remained asleep through the night with over 8 hours.
[2017-01-25 08:05] VITALS: BP 106/57; PULSE 71; RESP 18
[2017-01-25] MEDS: Insulin LISPRO Medium-Dose Scale SUBQ SCH ×4 (08:18→21:14)
--- NOTE | 2017-01-25 14:05 | NUR ---
Nursing note 7a-7p Pt. was very short in his responses today with his evaluation, with a very clear "No" when asked if he was having anxiety, depression, suicidal thoughts or hallucinations. Pt. has been refusing showers or assistance in hygiene, but I talked with him this morning and I was able to assist him in a full bed bath and linen change. I also changed his cloths and assisted in brushing his hair. Pts lower extremities are extremely dry and flaking, but skin is otherwise intact.
--- NOTE | 2017-01-25 17:23 | NUR ---
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 O: Patient slept 8.50 hours last night per staff. Patient denies S/I and H/I. He also denies auditory and visual hallucinations. Depression is 0/10 and anxiety is 0/10. "Where can I go? So I can't discharge today?" A: Patient is cooperative, disheveled, malodorous, guarded, anxious, restricted affect, dysthymic, tangential, paranoid, limited insight, poor judgment. P: Follow the care plan, coordinate with out-patient providers.
--- NOTE | 2017-01-25 19:10 | NUR ---
Observations 1300 - 1900 Pt affect and mood remained same as previous shifts, flat, guarded, withdrawn, brighter when engaged. Pt was in his room most of the shift sitting in his wheelchair, coming out for meals and snack and then returned to his room. Pt was pleasant, polite and cooperative when approached. Pt maintained behavior throughout the shift. Pt attended meals in D.R. and ate 100% of his meals. Pt ate snack. Pt declined to attend unit activities. Pt was given some slippers and he was very thankful. Pt was observed every 15 minutes through the shift as ordered.
[2017-01-25] MEDS: Insulin GLARgine 100 Unit/mL Syringe SUBQ SCH (21:14)
--- NOTE | 2017-01-26 03:31 | NUR ---
Nursing Noc Pt mood and affect appear unchanged from previous. Pleasant, cooperative with care plan. Taking medications as prescribed. Zero c/o anxiety or depression. Independent with ADLs. Continuing to monitor mood, behavior and medications. Blood sugar test as 0330=83. Q15 minute safety checks as ordered. CP
[2017-01-26] MEDS: Insulin LISPRO Medium-Dose Scale SUBQ SCH ×5 (07:57→21:37)
[2017-01-26] MEDS: FLUPHENAZINE DECANOATE 25 MG/ML IM SCH (14:22)
--- NOTE | 2017-01-26 16:21 | PCM.PNPSY ---
Subjective Date of Service Jan 25, 2017 Subjective The patient reports that he is still wanting to go to the [facility] motel. He states he is kinetically communicating to his 2 sets of parents. He reports that he would like to go to the group home on . He denies side effects to medications. He is agreeable staying in the hospital until the group home can be located. Sleep: "Okay" Appetite: "Fine" Suicidal and homicidal ideation: Denies Auditory hallucinations: Denies Visual hallucinations: Denies Other Psychotic Symptoms: Telepathic delusions as noted above Anxiety: Denies Depression: Denies Mental Status Exam Appearance: Disheveled, Malodorous Attitude: Cooperative, Guarded Behavior: Overtly anxious (tremor increased) Affect: Restricted Mood: Dysthymic Thought Process/Associations: Loose, Tangential Speech Production: Paucity Speech Rate: Lags/Latency Speech Articulation: Normal Thought Content: Somatic preoccupation, Suspicious, Perseveration, Erotomanic Danger to Self/Suicidal Ideati: None Danger to Others: None Delusions: Paranoid (Endorses), Somatic (Endorses) Hallucinations: Auditory (Endorses), Visual (Denies) Consciousness: Alert Orientation: Person, Place (somewhat) Memory: Short Term Memory (Impaired), Technical Spec Memory (Impaired) Estimate Intellectual Function: Average Basis for IQ estimate: Word use/vocabulary, Educational history Attention/Concentration & Cogn: Impaired Insight: Limited Judgement: Poor Mental Health Plan The patient is a 66-year-old male admitted under a 14-day order from [place], [place]. The patient reportedly is a long-term client of [facility] residential treatment services. He has received treatment for schizophrenia, paranoid type and has had a recent refusal of medications with significant decline of function. There was a concern for imminent danger to self with refusal of all medications including insulin. The patient was subsequently converted to a voluntary stay. Here on the unit he has been difficult to engage but he has been participating to a minimal degree. He denies suicidal ideation or psychiatric symptoms however he evidences significant paranoia and delusions as noted above. He is currently on a voluntary basis after agreeing to sign in and a treatment plan been put in place for him to return to his home via [employer]tra[employer]; however, a wheelchair could not be procured nor would the guardian meet the patient at the train station. The patient appears to be slowly stabilizing. He is agreeable to a PT assessment for walker but then did not cooperate with the examination. At the present time we are awaiting a call back from the group home in [place]. [place] AXIS I: Schizophrenia, paranoid type. AXIS II: Deferred. AXIS III: 1. History of insulin-dependent diabetes. 2. History of hypertension. AXIS IV: Stressors are noted for disturbance of coping, ineffective management of the patient's transition of care through the assigned guardian. AXIS V: Global Assessment of Functioning, current 35 Treatments 1. The patient is admitted to the inpatient unit and will be provided a safe and secure environment. 2. The patient is denying current active suicidality and is not in need of a one-to-one at this time. He is agreeing to notify us should he have any acute suicidal or homicidal thoughts. 3. The patient is encouraged to participate with group and milieu activities. 4. The patient will be seen by the treatment team on a daily basis to assess symptoms, side effects and response to treatment. 5. Continue fluphenazine 5 mg twice a day will have additional decannulated dose 25 mg on 01/26/2017. 6. The patient will be continued on Insulin Humalog subcutaneous per sliding scale scale protocol 7. Lisinopril 10 mg daily 8. Discharge will need to be postponed until group home can be located. 9. Patient declined PT consult for walker.. 10. Anticipated length of stay is 2-3 days. Estrada Jackson MD Jan 25, 2017 17:19
--- NOTE | 2017-01-26 16:28 | PCM.PNPSY ---
Subjective Date of Service Jan 26, 2017 Subjective The patient's room smelled strongly of urine. The patient stated that he did not need a bath nor did the room smell. He stated that the [place] [employer] were coming to get him to take him to [place]. He reports that he last spoke medically with his parents last night. He reports that he still plans to go to the [facility]. He stated that he would be willing to stay in the hospital should the police not come to pick him up and he would wait until we found placement. Sleep: 7.75 hours per staff, "fine" Appetite: "Fine" Suicidal and homicidal ideation: Denies Auditory hallucinations: Denies Visual hallucinations: Denies Other Psychotic Symptoms: Delusions as above Anxiety: Denies Depression: Denies Current Medications Current Medications Fluphenazine Decanoate 25 mg Q14D IM Last administered on 01/26/17t 14:22; Admin Dose 25 MG; Start 01/26/17 at 08:30 Mental Status Exam Appearance: Disheveled, Malodorous Attitude: Cooperative, Guarded Behavior: Overtly anxious (tremor increased with speaking) Affect: Restricted Mood: Dysthymic Thought Process/Associations: Loose, Tangential Speech Production: Paucity Speech Rate: Lags/Latency Speech Articulation: Normal Thought Content: Somatic preoccupation, Suspicious, Perseveration, Erotomanic Danger to Self/Suicidal Ideati: None Danger to Others: None Delusions: Paranoid (Endorses), Somatic (Endorses) Hallucinations: Auditory (Endorses), Visual (Denies) Consciousness: Alert Orientation: Person, Place (somewhat) Memory: Short Term Memory (Impaired), Java J2Ee Technical Lead Memory (Impaired) Estimate Intellectual Function: Average Basis for IQ estimate: Word use/vocabulary, Educational history Attention/Concentration & Cogn: Impaired Insight: Limited Judgement: Poor Mental Health Plan The patient is a 66-year-old male admitted under a 14-day order from [place], [place]. The patient reportedly is a long-term client of [facility] residential treatment services. He has received treatment for schizophrenia, paranoid type and has had a recent refusal of medications with significant decline of function. There was a concern for imminent danger to self with refusal of all medications including insulin. The patient was subsequently converted to a voluntary stay. Here on the unit he has been difficult to engage but he has been participating to a minimal degree. He denies suicidal ideation or psychiatric symptoms however he evidences significant paranoia and delusions as noted above. He is currently on a voluntary basis after agreeing to sign in and a treatment plan been put in place for him to return to his home via [employer]tra[employer]; however, a wheelchair could not be procured nor would the guardian meet the patient at the train station. The patient was also unable to navigate the transfer from a bus to the train. The patient appears to be stabilizing and approximately at baseline. Reports indicate that the patient can walk however the patient would not participate with a walker assessment and is still in need of a wheelchair. At the present time we are awaiting a call back from the longterm in [place] prior to returning him there. [place] AXIS I: Schizophrenia, paranoid type. AXIS II: Deferred. AXIS III: 1. History of insulin-dependent diabetes. 2. History of hypertension. AXIS IV: Stressors are noted for disturbance of coping, ineffective management of the patient's transition of care through the assigned guardian. AXIS V: Global Assessment of Functioning, current 35 Medications Fluphenazine decanoate 25 mg every 2 weeks last given 01/26/2017 Insulin sliding scale Aspirin 81 mg daily Lisinopril 10 mg daily Fluphenazine 5 mg twice daily Insulin glargine 35 units at bedtime Treatments 1. The patient is admitted to the inpatient unit and will be provided a safe and secure environment. 2. The patient is denying current active suicidality and is not in need of a one-to-one at this time. 3. The patient is encouraged to participate with group and milieu activities. 4. The patient will be seen by the treatment team on a daily basis to assess symptoms, side effects and response to treatment. 5. Continue fluphenazine 5 mg twice a day will have additional decanoate dose 25 mg on 01/26/2017. 6. The patient will be continued on Insulin Humalog subcutaneous per sliding scale scale protocol 7. Lisinopril 10 mg daily 8. Discharge will need to be postponed until longterm can be located as guardian is refusing to accept patient or assist with placement. 9. Patient declined PT consult for walker. 10. Anticipated length of stay is 5-7 days. Estrada Jackson MD Jan 26, 2017 16:28
[2017-01-26] MEDS ORDERED: FLUPHENAZINE DECANOATE 25 MG/ML IM ONE (16:30)
[2017-01-26 17:44] VITALS: BP 118/71; PULSE 68; RESP 16
--- NOTE | 2017-01-26 18:15 | NUR ---
Day Shift 7a-7p S-"Maybe I'll shower this afternoon. I know where I am, but don't know what day it is." O-Patient has been in bed resting most of the afternoon, came out of room for breakfast and lunch. Refused dinner, stated he wasn't hungry. Oriented patient to date and time. Compliant with medications, polite and cooperative. A-Isolates in room. Medication compliance. P-Patient monitored q15 for safety, location and accountability.
--- NOTE | 2017-01-26 18:36 | NUR ---
Consultative Sales Associate/Counselor: S: "I spoke to my parents last night." O: Patient slept 7.75 hours last night per staff. Patient denies S/I and H/I. He also denies auditory and visual hallucinations. Depression is 0/10 and anxiety is 0/10. When asked his mood, patient stated, "Okay." This database report writer left a message for Nell with [facility], , informing her that [facility] needs an update on housing or facilities for the patient to reside upon discharge and requested a call back. This database report writer called [facility], , to check bed availability. This database report writer spoke with the Glass Handler for [facility] and was told that their facility does not have any available beds and to please call back January 30, to check bed availability. A: Patient is cooperative, disheveled, very malodorous, guarded, anxious, restricted affect, dysthymic, tangential, paranoid, limited insight, poor judgment. P: Follow the care plan, coordinate with out-patient providers.
[2017-01-26] MEDS: Insulin GLARgine 100 Unit/mL Syringe SUBQ SCH ×2 (20:38→21:36)
--- NOTE | 2017-01-26 20:59 | NUR ---
Observations 0900 - 0 Pt affect and mood remained same as previous shifts, flat, guarded, withdrawn, brighter when engaged, isolative. Pt was in his room most of the shift sitting in his wheelchair and/or laying in bed. Pt came out for meals and snack and then returning to his room. Pt was pleasant, polite and cooperative when approached. Pt maintained behavior throughout the shift. Pt attended meals in D.R. and ate 100% of his meals. Pt ate snack. Pt declined to attend unit activities. Pt was observed every 15 minutes through the shift as ordered.
--- NOTE | 2017-01-26 22:56 | NUR ---
Observations 1900 to 0700 Pt ate a snack. Pt complained of feeling like he had low blood sugar to this ticket writer which was passed along to RN. Pt remains in room resting throughout shift except for snack. Pt is superficially cheerful with staff and keeps to self. Pt does appear internally preoccupied. Pt maintained behavioral control. Pt appeared asleep from 1900- 2030 and has remained asleep since 2300. Pt respirations were observed when asleep. Staff completed 15 min close observations as ordered.
--- NOTE | 2017-01-27 04:33 | NUR ---
Blood Glucose: HS blood Glucose 69- HS snacks given- insulin initial held- BG rechecked before bed- 225. Lantus and s/s given as ordered. 0430 blood glucose 113
[2017-01-27] MEDS: Insulin LISPRO Medium-Dose Scale SUBQ SCH ×5 (09:27→20:47)
[2017-01-27 11:14] VITALS: BP 135/73; PULSE 78; RESP 16
--- NOTE | 2017-01-27 14:23 | PCM.PNPSY ---
Subjective Date of Service Jan 27, 2017 Subjective I spent 30 minutes both reviewing treatment plan with our clinical team, interviewing the patient and providing supportive/educational psychotherapy. I spent more than 50% of the time counseling the patient. I reviewed the treatment plan with the him and discussed options available including the potential risks, benefits and side effects. Mohsen reports a marked improvement in thought organization and mood stability. Staff reports that he has been isolative and participating poorly in one-to-one unit and group activities. He slept 9 hours and denies depression or manic or psychotic symptoms review. He denies medication side effects. He was able to identify his medications and what they were used to treat. He is requesting discharge and is working with our clinical case manager to set up transportation. Current Medications Current Medications Fluphenazine Decanoate 25 mg Q14D IM Last administered on 01/26/17t 14:22; Admin Dose 25 MG; Start 01/26/17 at 08:30 Mental Status Exam Vital Signs Vital Signs Date Time Temp Pulse Resp B/P Pulse Ox O2 Delivery O2 Flow Rate FiO2 01/27/17 11:14 36.1 78 16 135/73 Appearance: Disheveled, Malodorous Attitude: Cooperative, Guarded Behavior: Overtly anxious (tremor increased with speaking) Affect: Restricted Mood: Euthymic, Dysthymic Thought Process/Associations: Loose, Tangential Speech Production: Paucity Speech Rate: Normal Speech Articulation: Normal Thought Content: Somatic preoccupation, Suspicious, Perseveration, Erotomanic Danger to Self/Suicidal Ideati: None Danger to Others: None Delusions: Paranoid (Endorses), Somatic (Endorses) Hallucinations: Auditory (Endorses) Consciousness: Alert Orientation: Person, Place (somewhat) Memory: Short Term Memory (Impaired), Fpc Memory (Impaired) Estimate Intellectual Function: Average Basis for IQ estimate: Word use/vocabulary, Educational history Attention/Concentration & Cogn: Impaired Insight: Limited Judgement: Poor Mental Health Plan Mohsen is a 66-year-old male admitted under a 14-day order from [place], [place]. He is a long-term client of [facility] treatment [facility]. He has received treatment for schizophrenia, paranoid type and has had a recent refusal of medications with significant decline of function. There was a concern for imminent danger to self with refusal of all medications including insulin. The patient was subsequently converted to a voluntary stay. Here on the unit he has been difficult to engage but he has been participating to a minimal degree. He denies suicidal ideation or psychiatric symptoms however he evidences significant paranoia and delusions as noted above. He is currently on a voluntary basis after agreeing to sign in and a treatment plan been put in place for him to return to his home via [employer]tra[employer]; however, a wheelchair could not be procured nor would the guardian meet the patient at the train station. The patient was also unable to navigate the transfer from a bus to the train. The patient appears to be stabilizing and approximately at baseline. Reports indicate that the patient can walk however the patient would not participate with a walker assessment and is still in need of a wheelchair. At the present time we are awaiting a call back from the pen[facility]entiary in [place] prior to returning him there. [place] AXIS I: Schizophrenia, paranoid type. AXIS II: Deferred. AXIS III: 1. History of insulin-dependent diabetes. 2. History of hypertension. AXIS IV: Stressors are noted for disturbance of coping, ineffective management of the patient's transition of care through the assigned guardian. AXIS V: Global Assessment of Functioning, current 35 Medications Fluphenazine decanoate 25 mg every 2 weeks last given 01/26/2017 Insulin sliding scale Aspirin 81 mg daily Lisinopril 10 mg daily Fluphenazine 5 mg twice daily Insulin glargine 35 units at bedtime Treatments 1. The patient is admitted to the inpatient unit and will be provided a safe and secure environment. 2. The patient is denying current active suicidality and is not in need of a one-to-one at this time. 3. The patient is encouraged to participate with group and milieu activities. 4. The patient will be seen by the treatment team on a daily basis to assess symptoms, side effects and response to treatment. 5. Continue fluphenazine 5 mg twice a day will have additional decanoate dose 25 mg on 01/26/2017. 6. The patient will be continued on Insulin Humalog subcutaneous per sliding scale scale protocol 7. Lisinopril 10 mg daily 8. Discharge will need to be postponed until penitentiary can be located as guardian is refusing to accept patient or assist with placement. 9. Patient declined PT consult for walker. 10. Anticipated length of stay is 5-7 days. Bird Thomson MD Jan 27, 2017 14:23
--- NOTE | 2017-01-27 16:31 | NUR ---
Observations 0700 - 1900 Pt affect and mood remained same as previous shifts, flat, guarded, withdrawn, brighter when engaged, isolative. Pt was in his room most of the shift sitting in his wheelchair and/or laying in bed. Pt came out for meals and then returned to his room. Pt was pleasant, polite and cooperative when approached. Pt maintained behavior throughout the shift. Pt attended meals in D.R. and ate 100% of his meals. Pt ate snack. Pt is malodorous and is refusing to shower. Pt was observed every 15 minutes through the shift as ordered.
--- NOTE | 2017-01-27 18:18 | NUR ---
[id number]. nurs. S/O: Pt remains isolative in rm, comes to DR for meals, refuses participation in any unit activities, did spend short time in chair in TV area. Pt malodorous, but refused shower stated he would in the morning. Pt accepting meds, affect flat/blunt, does have slightly more expression when making brief requests to met simple needs, for. eg. shutting door, asks for assistance to empty urinal etc. Pt's BSs brkfast 85. lunch 89, dinner 136. and pt receiving nutritional only. Pt non communicative re concerns ,or cognition and pattern of presentation unchanged. P:CNCP
[2017-01-27] MEDS: Insulin GLARgine 100 Unit/mL Syringe SUBQ SCH (20:45)
--- NOTE | 2017-01-28 03:30 | NUR ---
Observations 1900 to 0700 Pt ate a snack. Pts behavior has remained the same as previous shift, in which pt spends free time in room and has minimal interaction with staff and peers despite a pleasant demeanor during brief interaction. Pt maintained behavioral control. Pt appeared asleep from 2100- 2300 and has remained asleep since 0. Pt respirations were observed when asleep. Staff completed 15 min close observations as ordered.
--- NOTE | 2017-01-28 06:05 | NUR ---
Nursing Noc Pt mood and affect appear unchanged from previous. Pleasant, cooperative with care plan. Taking medications as prescribed. Zero c/o anxiety or depression. Independent with ADLs. Continuing to monitor mood, behavior and medications. Q15 minute safety checks as ordered. CP
[2017-01-28] MEDS: Insulin LISPRO Medium-Dose Scale SUBQ SCH ×4 (08:16→20:38)
--- NOTE | 2017-01-28 14:46 | PCM.PNPSY ---
Subjective Date of Service Jan 28, 2017 Subjective I spent 30 minutes both reviewing treatment plan with our clinical team, interviewing the patient and providing supportive/educational psychotherapy. I spent more than 50% of the time counseling the patient. I reviewed the treatment plan with the him and discussed options available including the potential risks, benefits and side effects. Mohsen reports relatively good thought organization and mood stability. Staff reports that he has been isolative and participating poorly in one-to-one unit and group activities. He slept 9 hours and denies depression or manic or psychotic symptoms review. He talked with me about [place] having [place] and moving across the country to the [facility]. He denies medication side effects. He was able to identify his medications and what they were used to treat. He is requesting discharge and is working with our rifle case repairer to set up transportation. Mental Status Exam Appearance: Disheveled, Malodorous Attitude: Pleasant, Cooperative Behavior: No unusual behavior Affect: Well Modulated/Appropriate Mood: Euthymic, Dysthymic Thought Process/Associations: Loose, Tangential Speech Production: Paucity Speech Rate: Normal Speech Articulation: Normal Thought Content: Somatic preoccupation, Perseveration Danger to Self/Suicidal Ideati: None Danger to Others: None Delusions: Somatic (Endorses) Consciousness: Alert Orientation: Person, Place (somewhat) Memory: Short Term Memory (Impaired), Alf Memory (Impaired) Estimate Intellectual Function: Average Basis for IQ estimate: Word use/vocabulary, Educational history Attention/Concentration & Cogn: Impaired Insight: Limited Judgement: Limited Mental Health Plan Mohsen is a 66-year-old male admitted under a 14-day order from [place], [place]. He is a long-term client of [facility] treatment [facility]. He has received treatment for schizophrenia, paranoid type and has had a recent refusal of medications with significant decline of function. There was a concern for imminent danger to self with refusal of all medications including insulin. The patient was subsequently converted to a voluntary stay. Here on the unit he has been difficult to engage but he has been participating to a minimal degree. He denies suicidal ideation or psychiatric symptoms. He is currently on a voluntary basis after agreeing to sign in and a treatment plan been put in place for him to return to his home via [employer]tra[employer]; however, a wheelchair could not be procured nor would the guardian meet the patient at the train station. The patient was also unable to navigate the transfer from a bus to the train. The patient appears to be stabilizing and approximately at baseline. Reports indicate that the patient can walk however the patient would not participate with a walker assessment and is still in need of a wheelchair. At the present time we are awaiting a call back from the [facility]ci in [place] prior to returning him there. Over the past 48 hours he has been pleasant and cooperative and denying psychiatric symptoms. He does not appear to be responding to internal stimuli. [place] AXIS I: Schizophrenia, paranoid type. AXIS II: Deferred. AXIS III: 1. History of insulin-dependent diabetes. 2. History of hypertension. AXIS IV: Stressors are noted for disturbance of coping, ineffective management of the patient's transition of care through the assigned guardian. AXIS V: Global Assessment of Functioning, current 35 Medications Fluphenazine decanoate 25 mg every 2 weeks last given 01/26/2017 Insulin sliding scale Aspirin 81 mg daily Lisinopril 10 mg daily Fluphenazine 5 mg twice daily Insulin glargine 35 units at bedtime Treatments 1. The patient is admitted to the inpatient unit and will be provided a safe and secure environment. 2. The patient is denying current active suicidality and is not in need of a one-to-one at this time. 3. The patient is encouraged to participate with group and milieu activities. 4. The patient will be seen by the treatment team on a daily basis to assess symptoms, side effects and response to treatment. 5. Continue fluphenazine 5 mg twice a day will have additional decanoate dose 25 mg on 01/26/2017. 6. The patient will be continued on Insulin Humalog subcutaneous per sliding scale scale protocol 7. Lisinopril 10 mg daily 8. Discharge will need to be postponed until fci can be located as guardian is refusing to accept patient or assist with placement. 9. Patient declined PT consult for walker. 10. Anticipated length of stay is 5-7 days. Bird Thomson MD Jan 28, 2017 14:46
--- NOTE | 2017-01-28 18:14 | NUR ---
[id number]. nurs. S/O: Pt taking meds as prescribed and attending to ADLs independently .Pt usually isolates in his rm apart from coming out for meals, but noted to spend more time in DR and some rocking movts at times. Pt with direct eye contact and pleasant with brief responses to staff inquiry. Pt showered yesterday and quick to tell staff so when invited to take shoewer in am . Pt denies concerns and awaits housing disposition solution. P:JEANNE
[2017-01-28] MEDS: Insulin GLARgine 100 Unit/mL Syringe SUBQ SCH (20:42)
--- NOTE | 2017-01-29 05:21 | NUR ---
behavior/blood glucose: pt. slept through snack time, pt.'s blood glucose was 192, pt. given lantus, and snack. pt. back to bed at 0245 and slept.
[2017-01-29] MEDS: Insulin LISPRO Medium-Dose Scale SUBQ SCH ×4 (08:00→21:11)
[2017-01-29 10:00] VITALS: BP 131/65; PULSE 87
--- NOTE | 2017-01-29 13:52 | NUR ---
Nursing Day Shift: S: "It's 2 days till I go back to [place]!" O: Patient stating his positive for today. Up for meals with a good appetite. Initially declined lunch "I'm not hungry". Up requesting and receiving lunch around 1345. Utilizing urinal and bedside commode for elimination needs. Denies anxiety, depression, harmful thoughts, and hallucinations. A: Quiet. Approachable. Cooperative. P: CPOC. Monitor mood and behavior.
--- NOTE | 2017-01-29 15:02 | NUR ---
Vegetable Tier/Counselor S:"I'm doing good today." O:Patient denies any SI or HI, no AVH, no anxiety or depression. A: Patient is positive and outgoing, and has been out on the unit more. He is pleasant with staff and other patients. Transportation has been arranged to [place], [place], for patient, and this law writer has made multiple attempts to reach the patient's guardian, Christian Rodrigues, Patient is eager to return to [place]. P: Follow care plan and coordinate with outpatient providers. Addendum: 01/29/17 at 1515 by [facility] Patient will be transported via [employer] to [facility], and will continue to [place] via [employer]. [facility] has provided patient with transportation needs.
--- NOTE | 2017-01-29 15:06 | PCM.PNPSY ---
Subjective Date of Service Jan 29, 2017 Subjective I spent 30 minutes both reviewing treatment plan with our clinical team, interviewing the patient and providing supportive/educational psychotherapy. I spent more than 50% of the time counseling the patient. I reviewed the treatment plan with the him and discussed options available including the potential risks, benefits and side effects. Mohsen reports relatively good thought organization and mood stability. Staff reports that he has been isolative and participating poorly in one-to-one unit and group activities. He slept 7 hours and denies depression or manic or psychotic symptoms review. He talked with me further about life in [place] and moving across the country to the [facility]. He is requesting to be transferred to a hotel in [place]. We problem solved different ways that he could get transportation through his laundry folder and food to his hotel. He showed relatively good insight and initiative at least verbally. He denies medication side effects. He was able to identify his medications and what they were used to treat. He is requesting discharge and is working with our correctional casework specialist to set up transportation. Mental Status Exam Appearance: Neat/well groomed Attitude: Pleasant, Cooperative Behavior: No unusual behavior Affect: Well Modulated/Appropriate Mood: Euthymic Thought Process/Associations: Goal Directed Speech Production: Paucity Speech Rate: Normal Speech Articulation: Normal Thought Content: Appropriate, Somatic preoccupation Danger to Self/Suicidal Ideati: None Danger to Others: None Consciousness: Alert Orientation: Person, Place, Date, Situation Memory: Grossly Intact Estimate Intellectual Function: Average Basis for IQ estimate: Awareness current events, Word use/vocabulary, Educational history Attention/Concentration & Cogn: Impaired Insight: Limited Judgement: Limited Mental Health Plan Mohsen is a 66-year-old male admitted under a 14-day order from [place], [place]. He is a long-term client of [facility] residential treatment [facility]. He has received treatment for schizophrenia, paranoid type and has had a recent refusal of medications with significant decline of function. There was a concern for imminent danger to self with refusal of all medications including insulin. The patient was subsequently converted to a voluntary stay. Here on the unit he has been difficult to engage but he has been participating to a minimal degree. He denies suicidal ideation or psychiatric symptoms. He is currently on a voluntary basis after agreeing to sign in and a treatment plan been put in place for him to return to his home via [employer]tra[employer]; however, a wheelchair could not be procured nor would the guardian meet the patient at the train station. The patient was also unable to navigate the transfer from a bus to the train. The patient appears to be stabilizing and approximately at baseline. At the present time we are awaiting disposition options from the alf in [place] and his laundry folder. Over the past 72 hours he has been pleasant and cooperative and he does not appear to be responding to internal stimuli. Per nursing staff he is unable to manage his medications especially insulin without nursing staff. He is unable to navigate in terms of a hotel and getting his food with his wheelchair. [place] AXIS I: Schizophrenia, paranoid type. AXIS II: Deferred. AXIS III: 1. History of insulin-dependent diabetes. 2. History of hypertension. AXIS IV: Stressors are noted for disturbance of coping, ineffective management of the patient's transition of care through the assigned guardian. AXIS V: Global Assessment of Functioning, current 35 Medications Fluphenazine decanoate 25 mg every 2 weeks last given 01/26/2017 Insulin sliding scale Aspirin 81 mg daily Lisinopril 10 mg daily Fluphenazine 5 mg twice daily Insulin glargine 35 units at bedtime Treatments 1. The patient is admitted to the inpatient unit and will be provided a safe and secure environment. 2. The patient is denying current active suicidality and is not in need of a one-to-one at this time. 3. The patient is encouraged to participate with group and milieu activities. 4. The patient will be seen by the treatment team on a daily basis to assess symptoms, side effects and response to treatment. 5. Continue fluphenazine 5 mg twice a day will have additional decanoate dose 25 mg on 01/26/2017. 6. The patient will be continued on Insulin Humalog subcutaneous per sliding scale scale protocol 7. Lisinopril 10 mg daily 8. Discharge will need to be postponed until alf can be located as guardian is refusing to accept patient or assist with placement. 9. Patient declined PT consult for walker. 10. Anticipated length of stay is 5-7 days. Bird Thomson MD Jan 29, 2017 15:06
--- NOTE | 2017-01-29 17:40 | NUR ---
Observations [id number] Pt isolated to room much of the day, resting at times. Pt quiet, reserved, and appears preoccupied. He continues to focus on discharge. Pt attended all meals, eating 100%. Pt continues to struggle with ADL's, did not shower today. He was observed every 15 minutes of shift as directed.
[2017-01-29] MEDS: Insulin GLARgine 100 Unit/mL Syringe SUBQ SCH (21:10)
--- NOTE | 2017-01-30 06:34 | NUR ---
Nursing Note Cmo & President 7pm-7am Pt was resting in bed at the start of shift. He did awaken to receive his HS medication. HS Blood Glucose was 123, no extra coverage required. He returned to sleep at [id number]. Blood Glucose rechecked at 0241, was 167. Pt requested crackers and returned to bed and slept from 0300 through the rest of the night. Pt monitored q 15 minutes for safety, location and accountability.
[2017-01-30] MEDS: Insulin LISPRO Medium-Dose Scale SUBQ SCH ×4 (07:55→20:13)
[2017-01-30 08:15] VITALS: BP 127/65; PULSE 73; RESP 15
--- NOTE | 2017-01-30 12:41 | PCM.PNPSY ---
Subjective Date of Service Jan 30, 2017 Subjective I spent 30 minutes both reviewing treatment plan with our clinical team, interviewing the patient and providing supportive/educational psychotherapy. I spent more than 50% of the time counseling the patient. I reviewed the treatment plan with the him and discussed options available including the potential risks, benefits and side effects. Mohsen reports relatively good thought organization and mood stability. He informs me today that he will on 02/01/2017. He tells me that his spirit will be transferred to his new body in [facility]. He does not wish to leave our unit. He denies being suicidal merely states that this is when he will . Staff reports that he has been isolative and participating poorly in one-to-one unit and group activities. He slept 7 hours and denies depression or manic or psychotic symptoms review. He talked with me further about life in [place] and the [facility]. He is requesting to be transferred to a hotel in [place] yet he cannot handle his insulin injections nor can he take medications on a regular basis. We problem solved different ways that he could get transportation through his video presentation operator and food to his hotel. He showed relatively good insight and initiative at least verbally. He remains quite psychotic in his thought process and as a result his judgment is severely impaired. He denies medication side effects. He was able to identify his medications and what they were used to treat. He is requesting discharge and is working with our shelter case manager to set up transportation. Mental Status Exam Appearance: Neat/well groomed Attitude: Pleasant, Cooperative Behavior: No unusual behavior Affect: Well Modulated/Appropriate Mood: Euthymic Thought Process/Associations: Goal Directed Speech Production: Normal Speech Rate: Normal Speech Articulation: Normal Thought Content: Appropriate, Somatic preoccupation Danger to Self/Suicidal Ideati: None Danger to Others: None Delusions: Somatic (patient states that he is going to on February 01 in his spirit will be transferred to his new body in [facility]) Consciousness: Alert Orientation: Person, Place, Date, Situation Memory: Grossly Intact Estimate Intellectual Function: Average Basis for IQ estimate: Awareness current events, Word use/vocabulary, Educational history Attention/Concentration & Cogn: Impaired Insight: Limited Judgement: Limited Mental Health Plan Mohsen is a 66-year-old male admitted under a 14-day order from [place], [place]. He is a long-term client of [facility]. He has received treatment for schizophrenia, paranoid type and has had a recent refusal of medications with significant decline of function. There was a concern for imminent danger to self with refusal of all medications including insulin. The patient was subsequently converted to a voluntary stay. Here on the unit he has been difficult to engage but he has been participating to a minimal degree. He denies suicidal ideation or psychiatric symptoms. He is currently on a voluntary basis after agreeing to sign in and a treatment plan been put in place for him to return to his home via [employer]; however, a wheelchair could not be procured nor would the guardian meet the patient at the train station. The patient was also unable to navigate the transfer from a bus to the train. The patient appears to be stabilizing and approximately at baseline. At the present time we are awaiting disposition options from the fpc in [place] and his video presentation operator. Over the past 72 hours he has been pleasant and cooperative and he does not appear to be responding to internal stimuli. Per nursing staff he is unable to manage his medications especially insulin without nursing staff. He is unable to navigate in terms of a hotel and getting his food with his wheelchair. Mohsen reports relatively good thought organization and mood stability. He informs me today that he will on 2016. He tells me that his spirit will be transferred to his new body in [facility]. He does not wish to leave our unit. He denies being suicidal merely states that this is when he will . Staff reports that he has been isolative and participating poorly in one-to-one unit and group activities. He slept 7 hours and denies depression or manic or psychotic symptoms review. He talked with me further about life in [place] and the [facility]. He is requesting to be transferred to a hotel in [place] yet he cannot handle his insulin injections nor can he take medications on a regular basis. We problem solved different ways that he could get transportation through his video presentation operator and food to his hotel. He showed relatively good insight and initiative at least verbally. He remains quite psychotic in his thought process and as a result his judgment is severely impaired. [place] AXIS I: Schizophrenia, paranoid type. AXIS II: Deferred. AXIS III: 1. History of insulin-dependent diabetes. 2. History of hypertension. AXIS IV: Stressors are noted for disturbance of coping, ineffective management of the patient's transition of care through the assigned guardian. AXIS V: Global Assessment of Functioning, current 35 Treatments 1. The patient is admitted to the inpatient unit and will be provided a safe and secure environment. 2. The patient is denying current active suicidality and is not in need of a one-to-one at this time. 3. The patient is encouraged to participate with group and milieu activities. 4. The patient will be seen by the treatment team on a daily basis to assess symptoms, side effects and response to treatment. 5. Continue fluphenazine 5 mg twice a day will have additional decanoate dose 25 mg on 01/26/2017. 6. The patient will be continued on Insulin Humalog subcutaneous per sliding scale scale protocol 7. Lisinopril 10 mg daily 8. Discharge will need to be postponed until fpc can be located as guardian is refusing to accept patient or assist with placement. 9. Patient declined PT consult for walker. 10. Anticipated length of stay is 5-7 days. Bird Thomson MD Jan 30, 2017 12:41
--- NOTE | 2017-01-30 16:05 | NUR ---
Independent Jeweler/Counselor S:"Who's my spring encaser?" O: Patient denies any SI or HI,no AVH, no anxiety or depression. A: Patient has been pleasant and cooperative and asks about returning home. Patient's guardian Christian Bellamykerriekalin, p#[phone] is still unreachable. No return call from home and community services. Transportation to train station has been cancelled, train ticket will be credited for later time. P: Follow care plan and coordinate with outpatient provider.
--- NOTE | 2017-01-30 16:36 | NUR ---
Observations [id number] Pt continues to isolate to room much of the day. He refused a shower, and when discussing potential discharge in the near future and showering, pt said "just let me stay here and then I don't need to shower." Pt continues to be ambivalent regarding ADL's. He attended all meals, eating 100%. Pt was observed talking amongst himself in the dining room in the afternoon, rocking back and forth. He was observed every 15 minutes of shift as directed.
--- NOTE | 2017-01-30 17:54 | NUR ---
Nursing Dayshift: S: "All of my sources say I'm going to on the . And they all cross reference." O: Patient continues to state he is going to this Sunday. Is adamant about his sources. Has been out of his room for meals and snacks with a good appetite. Pleasant on approach. Motors slowly in the wheel chair provided by this hospital. Utilizing the urinal and commode for elimination needs. A: Quiet. Calm for the most part. Delusional. P: CPOC. Monitor mood and behavior.
[2017-01-30] MEDS: Insulin GLARgine 100 Unit/mL Syringe SUBQ SCH ×2 (20:13→20:54)
--- NOTE | 2017-01-31 05:27 | NUR ---
Nursing Noc Patient unchanged from previous shift. HS snack given, and patient up once in the middle of night and given another snack. Pt pleasant cooperative, A+Ox3. Continuing to monitor mood, behavior and emotional state. BHCP, Q15 minute safety checks throughout the night.
[2017-01-31] MEDS: Insulin LISPRO Medium-Dose Scale SUBQ SCH ×4 (08:30→20:47)
[2017-01-31 12:38] VITALS: BP 127/77; PULSE 74
--- NOTE | 2017-01-31 14:16 | PCM.PNPSY ---
Subjective Date of Service Jan 31, 2017 Subjective I spent 30 minutes both reviewing treatment plan with our clinical team, interviewing the patient and providing supportive/educational psychotherapy. I spent more than 50% of the time counseling the patient. I reviewed the treatment plan with the him and discussed options available including the potential risks, benefits and side effects. Mohsen reports relatively good thought organization and mood stability. He repeated to me up today that he will on 02/01/2017. He tells me that his spirit will be transferred to his new body in [facility]. He does not wish to leave our unit. He denies being suicidal merely states that this is when he will . Staff reports that he has been isolative and participating poorly in one-to-one unit and group activities. He slept 7 hours and denies depression or manic or psychotic symptoms review. He talked with me further about life in [place] and [facility]. He is requesting to be transferred to a hotel in [place] yet he cannot handle his insulin injections nor can he take medications on a regular basis. We problem solved different ways that he could get transportation through his electric mule driver and food to his hotel. He showed relatively good insight and initiative at least verbally. He remains quite psychotic in his thought process and as a result his judgment is severely impaired. He denies medication side effects. He was able to identify his medications and what they were used to treat. He is requesting discharge and is working with our case assistant to set up transportation. Mental Status Exam Vital Signs Vital Signs Date Time Temp Pulse Resp B/P Pulse Ox O2 Delivery O2 Flow Rate FiO2 01/31/17 12:38 36.0 74 127/77 Appearance: Neat/well groomed Attitude: Pleasant, Cooperative Behavior: No unusual behavior Affect: Well Modulated/Appropriate Mood: Euthymic Thought Process/Associations: Goal Directed Speech Production: Normal Speech Rate: Normal Speech Articulation: Normal Thought Content: Appropriate, Somatic preoccupation Danger to Self/Suicidal Ideati: None Danger to Others: None Delusions: Somatic (patient states that he is going to on February 01 in his spirit will be transferred to his new body in [facility]) Consciousness: Alert Orientation: Person, Place, Date, Situation Memory: Grossly Intact Estimate Intellectual Function: Average Basis for IQ estimate: Awareness current events, Word use/vocabulary, Educational history Attention/Concentration & Cogn: Impaired Insight: Limited Judgement: Limited Mental Health Plan Mohsen is a 66-year-old male admitted under a 14-day order from [place], [place]. He is a long-term client of [facility] treatment [facility]. He has received treatment for schizophrenia, paranoid type and has had a recent refusal of medications with significant decline of function. There was a concern for imminent danger to self with refusal of all medications including insulin. The patient was subsequently converted to a voluntary stay. At the present time we are awaiting disposition options from the halfway in [place] and his electric mule driver. Over the past 72 hours he has been pleasant and cooperative and he does not appear to be responding to internal stimuli. Per nursing staff he is unable to manage his medications especially insulin without nursing staff. He is unable to navigate in terms of a hotel and getting his food with his wheelchair. He is unable to manage his insulin or his diabetes without supervision. Mohsen reports relatively good thought organization and mood stability. He informs me today that he will on 02/01/2017. He tells me that his spirit will be transferred to his new body in [facility]. He does not wish to leave our unit. He denies being suicidal merely states that this is when he will . Staff reports that he has been isolative and participating poorly in one-to-one unit and group activities. He slept 7 hours and denies depression or manic or psychotic symptoms review. He talked with me further about life in [place] and [facility]. He is requesting to be transferred to a hotel in [place] yet he cannot handle his insulin injections nor can he take medications on a regular basis. We problem solved different ways that he could get transportation through his electric mule driver and food to his hotel. He showed relatively good insight and initiative at least verbally. He remains quietly psychotic and as a result his judgment is severely impaired. [place] AXIS I: Schizophrenia, paranoid type. AXIS II: Deferred. AXIS III: 1. History of insulin-dependent diabetes. 2. History of hypertension. AXIS IV: Stressors are noted for disturbance of coping, ineffective management of the patient's transition of care through the assigned guardian. AXIS V: Global Assessment of Functioning, current 35 Treatments 1. The patient is admitted to the inpatient unit and will be provided a safe and secure environment. 2. The patient is denying current active suicidality and is not in need of a one-to-one at this time. 3. The patient is encouraged to participate with group and milieu activities. 4. The patient will be seen by the treatment team on a daily basis to assess symptoms, side effects and response to treatment. 5. Fluphenazine 5 mg twice a day will have additional decanoate dose 25 mg on . 6. The patient will be continued on Insulin Humalog subcutaneous per sliding scale scale protocol 7. Lisinopril 10 mg daily 8. Discharge will need to be postponed until halfway can be located as guardian is refusing to accept patient or assist with placement. 9. Patient declined PT consult for walker. 10. Anticipated length of stay is 5-7 days. Bird Thomson MD Jan 31, 2017 14:15
--- NOTE | 2017-01-31 18:08 | NUR ---
Obs Dayshift Pt is calm, polite, quiet, isolates to his room. Pt engages very little w/ staff and none w/ peers. Pt has ok eye contact, smiles often, and appears content. Pt makes no references into DC or future plans or ideas. Pt continues to be helpless for the most part, and wants assistance from staff. Poor ADL's - staff has to strongly encourage pt to shower or clean up after himself. Good meals
--- NOTE | 2017-01-31 18:47 | NUR ---
[id number]. nurs S/O: Pt continues pattern of isolating mostly, in bedrm, apart for getting meals and making brief requests as needed to have door shut. Pt has neutral to blunt affect not interacting with peers. Pt's OTs 101, breakfast 163, lunch 114 dinner . pt accepting coverage as ordered and taking sheduled meds. Pt has expressed delusional material to staff but not observed actively acting out in reponse to beliefs.
[2017-01-31] MEDS: Insulin GLARgine 100 Unit/mL Syringe SUBQ SCH (20:48)
--- NOTE | 2017-02-01 03:46 | NUR ---
Nursing Noc Pt remains pleasant and cooperative, remains isolative, out for snacks and then back to bed. Up once this shift at 0245 for blood sugar check then back to bed. Zero complaints of discomfort. Continuing to monitor mood, emotional state and sleep quality and quantity. Q15 minute safety checks throughout the night. Zero report or obvious anxiety r/t reported end of life by patient to happen today
[2017-02-01 08:30] VITALS: BP 127/74; PULSE 85; RESP 15
[2017-02-01] MEDS: Insulin LISPRO Medium-Dose Scale SUBQ SCH ×4 (08:39→21:30)
--- NOTE | 2017-02-01 15:49 | PCM.PNPSY ---
Subjective Date of Service Feb 01, 2017 Subjective I spent 30 minutes both reviewing treatment plan with our clinical team, interviewing the patient and providing supportive/educational psychotherapy. I spent more than 50% of the time counseling the patient. I reviewed the treatment plan with the him and discussed options available including the potential risks, benefits and side effects. Mohsen reports relatively good thought organization and mood stability. He repeated to me up today that he will on 02/01/2017. He tells me his calculations may have been off. He repeats that his spirit will be transferred to his new body in [facility]. He is now requesting to leave our unit and be transferred to a hotel in [place]. He denies being suicidal merely states that this is when he will . Staff reports that he has been isolative and participating poorly in one-to-one unit and group activities. He slept 8 hours and denies depression or manic or psychotic symptoms review. He is requesting to be transferred to a hotel in [place] yet he cannot handle his insulin injections nor can he take medications on a regular basis. We problem solved different ways that he could get transportation through his production support analyst and food to his hotel. He remains quite psychotic in his thought process and as a result his judgment is severely impaired. He denies medication side effects. He was not able to identify his medications nor what they were used to treat. He is requesting discharge and is working with our corrections caseworker to set up transportation. We are recommending that the state detain him on a 72 hour involuntary treatment hold. Mental Status Exam Vital Signs Vital Signs Date Time Temp Pulse Resp B/P Pulse Ox O2 Delivery O2 Flow Rate FiO2 02/01/17 08:30 36.0 85 15 127/74 Appearance: Neat/well groomed Attitude: Pleasant, Cooperative Behavior: No unusual behavior Affect: Well Modulated/Appropriate Mood: Euthymic Thought Process/Associations: Goal Directed Speech Production: Normal Speech Rate: Normal Speech Articulation: Normal Thought Content: Appropriate, Somatic preoccupation Danger to Self/Suicidal Ideati: None Danger to Others: None Delusions: Somatic (patient states that he is going to on February 01 in his spirit will be transferred to his new body in [facility]) Consciousness: Alert Orientation: Person, Place, Date, Situation Memory: Grossly Intact Estimate Intellectual Function: Average Basis for IQ estimate: Awareness current events, Word use/vocabulary, Educational history Attention/Concentration & Cogn: Impaired Insight: Limited Judgement: Limited Mental Health Plan Mohsen is a 66-year-old male admitted under a 14-day order from [place], [place]. He is a long-term client of [facility] treatment services. He has received treatment for schizophrenia, paranoid type and has had a recent refusal of medications with significant decline of function. There was a concern for imminent danger to self with refusal of all medications including insulin. The patient was subsequently converted to a voluntary stay. Per nursing staff he is unable to manage his medications especially insulin without nursing staff. He is unable to navigate in terms of a hotel and getting his food with his wheelchair. He is unable to manage his insulin or his diabetes without supervision. Staff reports that he has been isolative and participating poorly in one-to-one unit and group activities. He slept 7 hours and denies depression or manic or psychotic symptoms review. He is requesting discharge and to be transferred to a hotel in [place] yet he cannot handle his insulin injections nor can he take medications on a regular basis. We problem solved different ways that he could get transportation through his production support analyst and food to his hotel. He showed relatively good insight and initiative at least verbally. He remains quietly psychotic and as a result his judgment is severely impaired. We are requesting a [facility] P eval for re-usp. [place] AXIS I: Schizophrenia, paranoid type. AXIS II: Deferred. AXIS III: 1. History of insulin-dependent diabetes. 2. History of hypertension. AXIS IV: Stressors are noted for disturbance of coping, ineffective management of the patient's transition of care through the assigned guardian. AXIS V: Global Assessment of Functioning, current 30 Treatments 1. The patient is admitted to the inpatient unit and will be provided a safe and secure environment. 2. The patient is denying current active suicidality and is not in need of a one-to-one at this time. 3. The patient is encouraged to participate with group and milieu activities. 4. The patient will be seen by the treatment team on a daily basis to assess symptoms, side effects and response to treatment. 5. Fluphenazine 5 mg twice a day (patient received a decanoate dose 25 mg on ). 6. The patient will be continued on Insulin Humalog subcutaneous per sliding scale scale protocol 7. Lisinopril 10 mg daily 8. Discharge will need to be postponed until correction can be located as guardian is refusing to accept patient or assist with placement. 9. Patient declined PT consult for walker. 10. CDP consult for involuntary hold placed today Bird Thomson MD Feb 01, 2017 15:49
--- NOTE | 2017-02-01 16:49 | NUR ---
Observations 0700 to 1900 Pt did not attend community meeting. Pt did not attend recreational activities. Pt did not eat a snack. Pt continues to spend free time resting in rom in wheelchair or bed. Pts hygiene continues to be poor. Pt maintained behavioral control. Respirations were observed while asleep. Breakfast: 100%. Lunch: 75%. Staff completed 15 min close observations as ordered.
--- NOTE | 2017-02-01 18:24 | NUR ---
Journeyman Millwright/Counselor: S: "I will at midnight tonight, my source told me." O: Patient slept 7.5 hours last night per staff. Patient denies S/I and H/I. He also denies auditory and visual hallucinations. Depression is 0/10 and anxiety is 0/10. When asked his mood, patient stated, "Waiting to and go into the other body." Patient was detained this evening by the [facility], on a 72 hour hold. A: Patient is cooperative, disheveled, very malodorous, guarded, anxious, restricted affect, dysthymic, tangential, paranoid, limited insight, poor judgment. P: Follow the care plan, coordinate with out-patient providers.
--- NOTE | 2017-02-01 18:29 | NUR ---
[id number]. nurs. S: "My father put them in with razor blades" O: Pt responding as above when asking about some tremulousness he was having in his hands.Pt continuing pattern of isolating in , asking staff for needs to be met, coming out for meals, at times emptying own urinal. Pt makes brief responses and when questioned more deeply has verbalized some complex delusional beliefs about dying and occupying many different bodies and has stated will today and change bodies Pt has apparently talked about leaving without any plan of self care. Pt's OTs trending in low 100s and pt receiving nutri and correctional coverage as directed. Pt evaluated by [facility] per Drs request and detained on 72 hour hold as GD. P:CNCP
[2017-02-01] MEDS: Insulin GLARgine 100 Unit/mL Syringe SUBQ SCH (21:04)
--- NOTE | 2017-02-02 04:11 | NUR ---
Nursing Noc Pt KARINE'ed today as danger to self/gravely disabled. Pt without report of impending or discomfort this shift. Pt isolating to room, refusing HS snack this evening. taking medications as prescribed. HS blood sugar 170. Continuing to monitor mood, behavior, emotional state. Q15 minute safety checks performed throughout the night. CP
[2017-02-02] MEDS: Insulin LISPRO Medium-Dose Scale SUBQ SCH ×4 (08:23→22:00)
[2017-02-02 12:12] VITALS: BP 126/68; PULSE 83; RESP 16
--- NOTE | 2017-02-02 13:30 | NUR ---
Nursing Note [id number] Behavior S/O: Pt has good appetite. Blood sugar stable. Nutritional insulin given as ordered. Cooperative with cares. Minimal interactions with staff & peers. Able to make needs known. Pt showered this morning with prompting. Conversation tracking clear with only superficial interactions. Flat affect. Pt in his room most of the day except for meals. A: Pt isolative. Pt slowly improving. P: Provide supportive environment. Monitor medications & effects.
--- NOTE | 2017-02-02 13:58 | PCM.PNPSY ---
Subjective Date of Service Feb 02, 2017 Subjective I spent 30 minutes both reviewing treatment plan with our clinical team, interviewing the patient and providing supportive/educational psychotherapy. I spent more than 50% of the time counseling the patient. I reviewed the treatment plan with the him and discussed options available including the potential risks, benefits and side effects. Mohsen reports relatively good thought organization and mood stability. He was disappointed that he did not on 02/01/2017. He is requesting to leave our unit and be transferred to a hotel in [place]. He denies being suicidal merely states that this was when he thought he would . Staff reports that he has been isolative and participating poorly in one-to-one unit and group activities. He slept 9hours and denies depression or manic or psychotic symptoms review. He is requesting to be transferred to a hotel in [place] yet he cannot handle his insulin injections nor can he take medications on a regular basis. We problem solved different ways that he could get transportation through his ocularist and food to his hotel. He remains quite psychotic in his thought process and as a result his judgment is severely impaired. He denies medication side effects. He was not able to identify his medications nor what they were used to treat. He was placed on a 72 hour involuntary treatment hold per my request on 2016 with with the intention of converting him to 14 day and transfer to a geropsychiatric unit. Mental Status Exam Appearance: Neat/well groomed Attitude: Pleasant, Cooperative Behavior: No unusual behavior Affect: Well Modulated/Appropriate Mood: Euthymic Thought Process/Associations: Goal Directed Speech Production: Normal Speech Rate: Normal Speech Articulation: Normal Thought Content: Appropriate, Somatic preoccupation Danger to Self/Suicidal Ideati: None Danger to Others: None Delusions: Grandiose (Endorses), Somatic (patient states that he is going to on February 01 in his spirit will be transferred to his new body in [facility]) Hallucinations: Auditory (Endorses) Consciousness: Alert Orientation: Person, Place, Date, Situation Memory: Grossly Intact Estimate Intellectual Function: Average Basis for IQ estimate: Awareness current events, Word use/vocabulary, Educational history Attention/Concentration & Cogn: Impaired Insight: Limited Judgement: Limited Mental Health Plan Mohsen is a 66-year-old male admitted under a 14-day order from [place], [place]. He is a long-term client of [facility] residential treatment services. He has received treatment for schizophrenia, paranoid type and has had a recent refusal of medications with significant decline of function. There was a concern for imminent danger to self with refusal of all medications including insulin. The patient was subsequently converted to a voluntary stay. Per nursing staff he is unable to manage his medications especially insulin without nursing staff. He is unable to navigate in terms of a hotel and getting his food with his wheelchair. He is unable to manage his insulin or his diabetes without supervision. Staff reports that he has been isolative and participating poorly in one-to-one unit and group activities. He slept 8 hours and denies depression symptoms review. He is requesting discharge and to be transferred to a hotel in [place] yet he cannot handle his insulin injections nor can he take medications on a regular basis. We problem solved different ways that he could get transportation through his ocularist and food to his hotel. He is showing improved insight and initiative at least verbally. He remains quietly psychotic and as a result his judgment is severely impaired. e was placed on a 72 hour involuntary treatment hold per my request on 2016 with with the intention of converting him to 14 day and transfer to a geropsychiatric unit. [place] AXIS I: Schizophrenia, paranoid type. AXIS II: Deferred. AXIS III: 1. History of insulin-dependent diabetes. 2. History of hypertension. AXIS IV: Stressors are noted for disturbance of coping, ineffective management of the patient's transition of care through the assigned guardian. AXIS V: Global Assessment of Functioning, current 30 Treatments 1. The patient is admitted to the inpatient unit and will be provided a safe and secure environment. 2. The patient is denying current active suicidality and is not in need of a one-to-one at this time. 3. The patient is encouraged to participate with group and milieu activities. 4. The patient will be seen by the treatment team on a daily basis to assess symptoms, side effects and response to treatment. 5. Fluphenazine 5 mg twice a day (patient received a decanoate dose 25 mg on ). 6. The patient will be continued on Insulin Humalog subcutaneous per sliding scale scale protocol 7. Lisinopril 10 mg daily 8. Discharge will need to be postponed until fpc can be located as guardian is refusing to accept patient or assist with placement. 9. Patient declined PT consult for walker. 10. 72 hour hold placed 02/01/2017. I recommend pursuing a 14 day hold next Sunday. Bird Thomson MD Feb 02, 2017 13:58
--- NOTE | 2017-02-02 20:44 | NUR ---
Shaper Machine Hand/Counselor: S/O: Patient slept 7.5 hours last night per staff. Patient denies S/I and H/I. He also denies auditory and visual hallucinations. Depression is 0/10 and anxiety is 0/10. A: Patient is cooperative, disheveled, very malodorous, guarded, anxious, restricted affect, dysthymic, tangential, paranoid, limited insight, poor judgment. P: Follow the care plan, coordinate with out-patient providers.
[2017-02-02] MEDS: Insulin GLARgine 100 Unit/mL Syringe SUBQ SCH (21:43)
--- NOTE | 2017-02-02 23:25 | NUR ---
Nurses Note Evening Patient has been isolating to his room. He refused to eat his dinner,refused fluids. His insulin was held at dinner. Later at 2300, patient requested snacks ,fluids with a smile on his face. Will maintain q 15min. checks for safety,support,reality test as tolerated,encourage improved insight into illness. Addendum: 02/02/17 at 4740 by YU DOLL RN Amended: Links added.
--- NOTE | 2017-02-02 23:55 | NUR ---
Noc OBS [id number] Pt isolated to room most of shift. He did come out for a snack in the evening. Asleep at [id number], 0030. Observed Q15 as ordered.
--- NOTE | 2017-02-03 04:49 | NUR ---
nursing, nights, 11-7 s- can i have some cheese sticks ? thanks. o- has appeared to sleep after 2200. up at 2315 and received 2 cheese sticks. returned to bed appearing somewhat restless. appeared to sleep after 0400. assessed q 15 minutes. a- inadequate sleep, no apparent physical distress. p- monitor behavior/emotional state, quality, times and amount of sleep, use and effect of medication. darian
[2017-02-03] MEDS: Insulin LISPRO Medium-Dose Scale SUBQ SCH ×4 (07:41→22:00)
[2017-02-03 08:34] VITALS: BP 136/82; PULSE 81
--- NOTE | 2017-02-03 14:26 | NUR ---
Nursin to 1500. S: I'm ok O: Mohsen has been sitting in most of shift. He transfers self from bed to . Is able to use commode in room independently. Denies any Suicidality, anxiety or depression. Out for meals and snacks. No statements to marketing copywriter indicating psychosis. Wound on left oreilly has 4, 1 ml diameter open areas as well as dry flaky skin. Photos in chart. Wound care consult ordered. A: No noted distress. P: Assess for effectiveness of medication for mental status and diabetic control. Addendum: 02/03/17 at 1434 by GLENYS KEARNEY RN Amended: Links added.
--- NOTE | 2017-02-03 16:47 | PCM.PNPSY ---
Subjective Date of Service Feb 03, 2017 Subjective Blood sugar this afternoon to 11, this morning 121. The patient reports his mood is "fine." The patient reports "my own body is from the [facility]." He reports that he is "kinetically" communicating with his parents. He denies medication side effects. He is agreeable to having a wound consult for his lower extremities. Sleep: 5.5 hours Appetite: Fine Suicidal and homicidal ideation: Denies Auditory hallucinations: As above Visual hallucinations: Denies Other Psychotic Symptoms: Delusions as above Anxiety: Denies Depression: Denies Mental Status Exam Appearance: Unkept, Malodorous Attitude: Pleasant, Cooperative Behavior: Stereotypic movements Affect: Restricted Mood: Euthymic Thought Process/Associations: Goal Directed Speech Production: Normal Speech Rate: Normal Speech Articulation: Normal Thought Content: Somatic preoccupation, Perseveration Danger to Self/Suicidal Ideati: None Danger to Others: None Delusions: Grandiose (Endorses), Somatic (patient states that he is going to on February 01 in his spirit will be transferred to his new body in [facility]) Hallucinations: Auditory (Endorses), Visual (Denies) Consciousness: Alert Orientation: Person, Place, Date, Situation Memory: Untestable Estimate Intellectual Function: Average Basis for IQ estimate: Word use/vocabulary, Educational history Attention/Concentration & Cogn: Impaired Insight: Limited Judgement: Limited Mental Health Plan The patient is a 66-year-old male admitted under a 14-day order from [place], [place]. The patient reportedly is a long-term client of [facility] residential treatment services. He has received treatment for schizophrenia, paranoid type and has had a recent refusal of medications with significant decline of function. There was a concern for imminent danger to self with refusal of all medications including insulin. The patient was subsequently converted to a voluntary stay. As the patient has been unable to manage his insulin and was requesting discharge, he was referred to the designated mental health professional and subsequently detained on a 72 hour hold. The patient continues to isolate to his room and reports communicating telepathically with his family as well as making bizarre comments as noted above. As the patient's guardian is no longer working on placement, referral to a geropsychiatric facility for long-term placement may be his only option. [place] AXIS I: Schizophrenia, paranoid type. AXIS II: Deferred. AXIS III: 1. History of insulin-dependent diabetes. 2. History of hypertension. AXIS IV: Stressors are noted for disturbance of coping, ineffective management of the patient's transition of care through the assigned guardian. AXIS V: Global Assessment of Functioning, current 30 Treatments 1. The patient is admitted to the inpatient unit and will be provided a safe and secure environment. 2. The patient is denying current active suicidality and is not in need of a one-to-one at this time. 3. The patient is encouraged to participate with group and milieu activities. 4. The patient will be seen by the treatment team on a daily basis to assess symptoms, side effects and response to treatment. 5. Fluphenazine 5 mg twice a day with 25 mg decanoate every 2 weeks last dose given 01/26/2017). 6. The patient will be continued on Insulin Humalog subcutaneous per sliding scale scale protocol 7. Refer to certified technician specialist 8. Discharge will need to be postponed until half-way can be located as guardian is refusing to accept patient or assist with placement. 9. Patient declined PT consult for walker. 10. 72 hour hold placed 02/01/2017. Hearing for 14 day more restrictive order will be on 02/06/2017. Estrada Jackson MD Feb 03, 2017 16:47
--- NOTE | 2017-02-03 17:06 | NUR ---
Observations 0900 to 2130 Pt ate a snack. Pt spends free time resting in his room where he other sleeps in his wheelchair or bed. Pt is not observed interacting with peers or taking part in recreational activities. Pt only briefly watched TV before dinner. Pt maintained behavioral control. Pt respirations were observed when asleep. Staff completed 15 min close observations as ordered.
[2017-02-03] MEDS: Insulin GLARgine 100 Unit/mL Syringe SUBQ SCH (20:50)
--- NOTE | 2017-02-03 23:36 | NUR ---
Nurses Note Evening Patients' blood sugars have been stable. His mood somewhat improved with good eye contact and occasional smiling. His hygiene remains poor requiring encouragement and assistance to maintain. Will maintain q 15min. checks for safety and support. Addendum: 02/03/17 at 2339 by YU DOLL RN Amended: Links added.
--- NOTE | 2017-02-04 05:02 | NUR ---
nursing, nights, 11-7 s/o- has appeared to sleep after 0 during q 15 minute assessments. a- no apparent distress. p- monitor behavior/emotional state, quality, times and amount of sleep, use and effect of medication. darian
[2017-02-04] MEDS: Insulin LISPRO Medium-Dose Scale SUBQ SCH ×4 (08:00→20:35)
[2017-02-04 08:15] VITALS: BP 110/62; PULSE 80; RESP 15
--- NOTE | 2017-02-04 14:53 | NUR ---
Nursing 7a-3p Morning BG 127 with no extra coverage required, noon BG 197 with 1 unit Humalog sliding scale. Pt continues to need assistance with ADLs. He was out for meals, and morning group. Spends a lot of time sitting in his room. Pleasant and cooperative upon interaction. Taking medications as scheduled.
--- NOTE | 2017-02-04 15:31 | PCM.PNPSY ---
Subjective Date of Service Feb 04, 2017 Subjective The patient reports his mood is "fine." The patient inquires as to whether he is being discharged today. When informed that he does not currently have a discharge location he inquires as to whether he could live with Isabel Brannon and reports that he lived with her for 1-1/2 years when he was 23. He stated that she was young at the time. Upon investigation, Isabel is 96 years old and her Ruiz appears to past away in 1996. He reports that he is "kinetically" communicating with his parents this morning. He denies medication side effects. He is agreeable to having a wound consult for his lower extremities. Sleep: 8 hours Appetite: "Fine" Suicidal and homicidal ideation: Denies Auditory hallucinations: As above Visual hallucinations: Denies Other Psychotic Symptoms: Delusions as above Anxiety: Denies Depression: Denies Mental Status Exam Vital Signs Vital Signs Date Time Temp Pulse Resp B/P Pulse Ox O2 Delivery O2 Flow Rate FiO2 02/04/17 08:15 36.1 80 15 110/62 Appearance: Unkept, Malodorous Attitude: Pleasant, Cooperative, Guarded Behavior: Stereotypic movements Affect: Restricted Mood: Euthymic Thought Process/Associations: Goal Directed Speech Production: Normal Speech Rate: Normal Speech Articulation: Normal Thought Content: Somatic preoccupation, Perseveration Danger to Self/Suicidal Ideati: None Danger to Others: None Delusions: Other (Kinetically communicating with parents) Hallucinations: Auditory (Endorses), Visual (Denies) Consciousness: Alert Orientation: Person, Place, Date Memory: Untestable Estimate Intellectual Function: Average Basis for IQ estimate: Word use/vocabulary, Educational history Attention/Concentration & Cogn: Impaired Insight: Limited Judgement: Limited Mental Health Plan The patient is a 66-year-old male admitted under a 14-day order from [place], [place]. The patient reportedly is a long-term client of [facility] residential treatment services. He has received treatment for schizophrenia, paranoid type and has had a recent refusal of medications with significant decline of function. There was a concern for imminent danger to self with refusal of all medications including insulin. The patient was subsequently converted to a voluntary stay. As the patient has been unable to manage his insulin and was requesting discharge, he was referred to the designated mental health professional and subsequently detained on a 72 hour hold. The patient continues to isolate to his room and reports communicating telepathically with his family as well as making bizarre comments as noted above. As the patient's guardian is no longer working on placement, referral to a geropsychiatric facility for long-term placement may be his only option. [place] AXIS I: Schizophrenia, paranoid type. AXIS II: Deferred. AXIS III: 1. History of insulin-dependent diabetes. 2. History of hypertension. AXIS IV: Stressors are noted for disturbance of coping, ineffective management of the patient's transition of care through the assigned guardian. AXIS V: Global Assessment of Functioning, current 30 Treatments 1. The patient is admitted to the inpatient unit and will be provided a safe and secure environment. 2. The patient is denying current active suicidality and is not in need of a one-to-one at this time. 3. The patient is encouraged to participate with group and milieu activities. 4. The patient will be seen by the treatment team on a daily basis to assess symptoms, side effects and response to treatment. 5. Fluphenazine 5 mg twice a day with 25 mg decanoate every 2 weeks last dose given 01/26/2017). 6. The patient will be continued on Insulin Humalog subcutaneous per sliding scale scale protocol 7. Refer to nuisance wildlife specialist, they will evaluate on Sunday, wound appears stable. 8. Discharge will need to be postponed until [facility] can be located as guardian is refusing to accept patient or assist with placement. 9. Patient declined PT consult for walker. 10. 72 hour hold placed 02/01/2017. Hearing for 14 day more restrictive order will be on 02/06/2017. Estrada Jackson MD Feb 04, 2017 15:31
--- NOTE | 2017-02-04 18:17 | NUR ---
Observations [id number] Pt focused on discharge and isolated to room much of the day, only coming out for meals. Pt's main focus was getting a shorter wheelchair- "this one is too tall." Pt could not inform this machine sign writer why he wanted a smaller one, and when asked if he felt it was too tall for the duration of his stay, he replied "yes." He is observed using his feet to move rather then his arms to transport while in the chair. Pt continues to present as vague, flat, and disheveled. Pt struggles with ADL's but for the encouragement of staff. He does not participate in groups aside from Community Meeting. Pt attended all meals, eating 100%. He was observed every 15 minutes of shift as directed.
[2017-02-04] MEDS: Insulin GLARgine 100 Unit/mL Syringe SUBQ SCH (20:33)
--- NOTE | 2017-02-04 22:28 | NUR ---
Nurses Note Evening Patient has been in and out of his room. His hygiene is poor and he refused assistance with a shower or bed bath.Patients' shins with dry skin and redness beneath the scales. His BS have been 127 and 208 at dinner and HS. Patient appears preoccupied and somewhat guarded. Will continue to encourage verbal interaction,reality test as tolerated, encourage assistance with hygiene needs. Addendum: 02/04/17 at 5589 by YU DOLL RN Amended: Links added.
--- NOTE | 2017-02-05 05:54 | NUR ---
Nursing Note Audiovisual Aids Technician 11pm to 7am Pt in bed but awake until approx. 0130 when he went to sleep. No issues to report. Monitored q 15 minutes for safety, location, and accountability.
[2017-02-05] MEDS: Insulin LISPRO Medium-Dose Scale SUBQ SCH ×5 (07:58→22:00)
[2017-02-05 12:45] VITALS: BP 107/62; PULSE 69; RESP 16
--- NOTE | 2017-02-05 14:20 | NUR ---
Nursing 7a-3p Pt out for meals and napping in between. Pt's appearance is disheveled but declined assistance. Morning blood glucose 145 with Humalog 1 unit extra coverage, Noon blood glucose 154 with Humalog 1 unit extra coverage. He reports he feels "Fine". When asked if he was worried about dying or felt he was in a different body he stated "No". Pt avoidant today and isolating to his room. Taking medication as scheduled. He did attend morning group but not participate in any other unit activities.
--- NOTE | 2017-02-05 15:54 | PCM.PNPSY ---
Subjective Date of Service Feb 05, 2017 Subjective The patient reports his mood is "fine." The patient's left leg skin condition appears stable. He has no new complaints. He reports that he is "kinetically" communicating with his parents this morning. He denies medication side effects. He is agreeable to having a wound consult for his lower extremities. Sleep: 5.5 hours Appetite: "Fine" Suicidal and homicidal ideation: Denies Auditory hallucinations: As above Visual hallucinations: Denies Other Psychotic Symptoms: Delusions as above Anxiety: Denies Depression: Denies Mental Status Exam Vital Signs Vital Signs Date Time Temp Pulse Resp B/P Pulse Ox O2 Delivery O2 Flow Rate FiO2 02/05/17 12:45 36.2 69 16 107/62 Appearance: Unkept, Malodorous Attitude: Pleasant, Cooperative, Guarded Behavior: Stereotypic movements Affect: Restricted Mood: Euthymic Thought Process/Associations: Goal Directed Speech Production: Normal Speech Rate: Normal Speech Articulation: Normal Thought Content: Somatic preoccupation, Perseveration Danger to Self/Suicidal Ideati: None Danger to Others: None Delusions: Other (Kinetically communicating with parents) Hallucinations: Auditory (Endorses), Visual (Denies) Consciousness: Alert Orientation: Person, Place, Date Memory: Untestable Estimate Intellectual Function: Average Basis for IQ estimate: Word use/vocabulary, Educational history Attention/Concentration & Cogn: Impaired Insight: Limited Judgement: Limited Mental Health Plan The patient is a 66-year-old male admitted under a 14-day order from [place], [place]. The patient reportedly is a long-term client of [facility] residential treatment services. He has received treatment for schizophrenia, paranoid type and has had a recent refusal of medications with significant decline of function. There was a concern for imminent danger to self with refusal of all medications including insulin. The patient was subsequently converted to a voluntary stay. As the patient has been unable to manage his insulin and was requesting discharge, he was referred to the designated mental health professional and subsequently detained on a 72 hour hold. The patient continues to isolate to his room and reports communicating telepathically with his family. As the patient's guardian is no longer working on placement, referral to a geropsychiatric facility for long-term placement may be his only option. Awaiting wound care assessment, although wound itself appears stable. [place] AXIS I: Schizophrenia, paranoid type. AXIS II: Deferred. AXIS III: 1. History of insulin-dependent diabetes. 2. History of hypertension. AXIS IV: Stressors are noted for disturbance of coping, ineffective management of the patient's transition of care through the assigned guardian. AXIS V: Global Assessment of Functioning, current 30 Treatments 1. The patient is admitted to the inpatient unit and will be provided a safe and secure environment. 2. The patient is denying current active suicidality and is not in need of a one-to-one at this time. 3. The patient is encouraged to participate with group and milieu activities. 4. The patient will be seen by the treatment team on a daily basis to assess symptoms, side effects and response to treatment. 5. Fluphenazine 5 mg twice a day with 25 mg decanoate every 2 weeks last dose given 01/26/2017). 6. The patient will be continued on Insulin Humalog subcutaneous per sliding scale scale protocol 7. Refer to civil design specialist, they will evaluate on Sunday, wound appears stable. 8. Discharge will need to be postponed until shelter can be located as guardian is refusing to accept patient or assist with placement. 9. Patient declined PT consult for walker. 10. 72 hour hold placed 02/01/2017. Hearing for 14 day more restrictive order will be on 02/06/2017. Estrada Jackson MD Feb 05, 2017 15:54
--- NOTE | 2017-02-05 17:37 | NUR ---
Cyanide Furnace Operator/Counselor S:"I'm fine." O: Patient denies any SI or HI, states that he has been in psychic communication with his parents, and denies any SI or HI. A: Patient has been secluded in his room and has not interacted out on the unit. He will respond when asked questions, and has been overall avoidant. P: Follow care plan and coordinate with outpatient providers.
--- NOTE | 2017-02-05 18:17 | NUR ---
Observations [id number] Pt complained of bed being too high- this report writer showed him how to lower but pt was resistant to learning how to do so himself- "can you do it for me?" Pt remained in room much of the day, isolating. He does attend meals, eating 100%. Pt did not attend group but does attend Community Meeting with some staff encouragement. Focus continues to be on discharge. He did watch the baseball game that was playing in the evening on TV. Limited interaction with peers. Pt was observed every 15 minutes of shift as directed.
[2017-02-05] MEDS: Insulin GLARgine 100 Unit/mL Syringe SUBQ SCH (21:25)
--- NOTE | 2017-02-05 23:53 | NUR ---
NURSE NOTE EVENING SHIFT [id number]: Pt was in his bed at the beginning of the shift and stayed there until dinner, then watched a little bit of the [employer] baseball game before returning to his room. Pt denied depression. Pt went to bed at 2000 and stayed there for the remainder of the shift. Pt monitored q15 minutes for location, safety and accountability.
--- NOTE | 2017-02-06 00:43 | NUR ---
Observations 1900 to 0700 Pt ate a snack. Pt spends evening watching TV. Pt has currently had no sleep and is observed talking to self in dining room. Pt maintained behavioral control. Staff completed 15 min close observations as ordered.
--- NOTE | 2017-02-06 07:13 | NUR ---
Nursing Note Pbx Installer 7pm to 7am Pt had difficulty falling asleep and staying asleep. Declined prn medications. In no acute distress. Monitored pt for safety location and accountabilty
[2017-02-06] MEDS: Insulin LISPRO Medium-Dose Scale SUBQ SCH ×4 (08:51→20:54)
[2017-02-06 14:30] VITALS: BP 114/66; PULSE 72; RESP 16
--- NOTE | 2017-02-06 15:05 | NUR ---
Nursing 7a-3p Pt more visible on the unit today. He has been up since early this morning and spending time out in the dining area sitting in his wheelchair. Minimal engagement with staff or peers. Pleasant and cooperative. Morning blood glucose 146 with 1 extra unit of humalog, noon blood glucose 103 no extra coverage required. He remains quiet and appears internally preoccupied.
--- NOTE | 2017-02-06 15:58 | NUR ---
Observations 5743-1554 Pt continues to isolate to room, but spent more time in common areas watching TV then observed in previous shifts. Pt is malodorous and was encouraged to shower but is resistant- stating "I had a thorough shower a few days ago." Pt attended all meals, eating 100%. Affect continues to be flat and pt continues to focus on discharge. He was observed every 15 minutes of shift as directed.
--- NOTE | 2017-02-06 16:06 | PCM.PNPSY ---
Subjective Date of Service Feb 06, 2017 Subjective The patient reports his mood is "okay." He has no new complaints. He reports that he was "kinetically" communicating with his parents "a lot" this morning. He reports that he is "going through my routine watch TV, eat meals, take a nap. " He denies medication side effects. The patient's left leg skin condition appears stable and he is agreeable to having a wound consult for his lower extremities. Encourage patient to take shower as he has refused to do so for the last 3 days. Sleep: 3 hours Appetite: "Fine" Suicidal and homicidal ideation: Denies Auditory hallucinations: As above Visual hallucinations: Denies Other Psychotic Symptoms: Delusions as above Anxiety: Denies Depression: Denies Mental Status Exam Vital Signs Vital Signs Date Time Temp Pulse Resp B/P Pulse Ox O2 Delivery O2 Flow Rate FiO2 02/06/17 14:30 36.3 72 16 114/66 Appearance: Unkept, Malodorous Attitude: Pleasant, Cooperative, Guarded Behavior: Stereotypic movements Affect: Restricted Mood: Euthymic Thought Process/Associations: Goal Directed Speech Production: Normal Speech Rate: Normal Speech Articulation: Normal Thought Content: Somatic preoccupation, Perseveration Danger to Self/Suicidal Ideati: None Danger to Others: None Delusions: Other (Kinetically communicating with parents) Hallucinations: Auditory (Endorses), Visual (Denies) Consciousness: Alert Orientation: Person, Place, Date Memory: Untestable Estimate Intellectual Function: Average Basis for IQ estimate: Word use/vocabulary, Educational history Attention/Concentration & Cogn: Impaired Insight: Limited Judgement: Limited Mental Health Plan The patient is a 66-year-old male admitted under a 14-day order from [place], [place]. The patient reportedly is a long-term client of [facility] residential treatment services. He has received treatment for schizophrenia, paranoid type and has had a recent refusal of medications with significant decline of function. There was a concern for imminent danger to self with refusal of all medications including insulin. The patient was subsequently converted to a voluntary stay. As the patient has been unable to manage his insulin and was requesting discharge, he was referred to the designated mental health professional and subsequently detained on a 72 hour hold. The patient continues to isolate to his room and reports communicating telepathically with his family. As the patient's guardian is no longer working on placement, referral to a geropsychiatric facility for long-term placement may be his only option. Awaiting wound care assessment, although wound itself appears stable. [place] AXIS I: Schizophrenia, paranoid type. AXIS II: Deferred. AXIS III: 1. History of insulin-dependent diabetes. 2. History of hypertension. AXIS IV: Stressors are noted for disturbance of coping, ineffective management of the patient's transition of care through the assigned guardian. AXIS V: Global Assessment of Functioning, current 30 Treatments 1. The patient is admitted to the inpatient unit and will be provided a safe and secure environment. 2. The patient is denying current active suicidality and is not in need of a one-to-one at this time. 3. The patient is encouraged to participate with group and milieu activities. 4. The patient will be seen by the treatment team on a daily basis to assess symptoms, side effects and response to treatment. 5. Fluphenazine 5 mg twice a day with 25 mg decanoate every 2 weeks last dose given 01/26/2017). 6. The patient will be continued on Insulin Humalog subcutaneous per sliding scale scale protocol 7. Refer to manufacturing specialist, they will evaluate on Sunday, wound appears stable. 8. Discharge will need to be postponed until group home can be located as guardian is refusing to accept patient or assist with placement. 9. Patient declined PT consult for walker. 10. 72 hour hold placed 02/01/2017. Hearing for 14 day more restrictive order will be on 02/07/2017. Estrada Jackson MD Feb 06, 2017 16:06
--- NOTE | 2017-02-06 17:50 | NUR ---
Schedule Planning Manager/Counselor S:"I'm ok." O :Patient denies any SI or HI, no AVH, no anxiety or depression. A: Patient has been out on the unit more but does not engage with other patients. Withdrawn and secluded to one area of the unit. Patients guardian spoke with Posting Specialist Joleen Wagner, and stated that he has tried to get a hold of staff at the hospital. This remote mortgage underwriter advised Joleen that both field case manager have made attempts at contact with no results, and were unable to leave voice mails. P: Follow care plan and coordinate with outpatient provider.
--- NOTE | 2017-02-06 20:22 | NUR ---
nursing note 3-11pm S)"I have decided... I will take a shower tomorrow before breakfast" O) pt encouraged to shower but is putting it off until tomorrow am, pleasant withdrawn compliant with medications and out for meals, IddM controlled with insulin, uses wheelchair appropriately, dressed in scrubs, denies any discomfort or problems A) cooperative, takes medication, isolates, withdrawn P) monitor medication effectiveness and monitor patient for safety
[2017-02-06] MEDS: Insulin GLARgine 100 Unit/mL Syringe SUBQ SCH (20:47)
--- NOTE | 2017-02-07 06:19 | NUR ---
Nursing Note Irrigator Head 11pm-7am Patient was asleep at start of shift. Out in dining room from [id number]. Blood glucose 79 at 0221; was given rosalie crackers and peanut butter. Patient returned to room for the remainder of the shift. Patient slept 7.25+ hours. Pt monitored q 15 minutes for safety, location and accountability.
[2017-02-07] MEDS: Insulin LISPRO Medium-Dose Scale SUBQ SCH ×4 (09:58→22:00)
--- NOTE | 2017-02-07 10:36 | NUR ---
Inpatient Wound Nurse Patient assessed by [facility] RN for anterior LLE crusting. An area approximately 6 cm L x 6 cm W appears with erythema and crusting. Surrounding tissue is scaling and flaking. This area mimics psoriasis but no silvery scales were noted. Patient would be benefitted from soap and water shower with washcloth debridement. MD may order steroid ointment but at this time, patient is not agreeable to lotions, ointment, or dressing. A dressing of bordered Mepilex with silicone facing may be beneficial for two reasons. First, it would protect any skin breaks from bacterial entry, hopefully avoiding cellulitis. Second, it would change the microtemperature at the skin surface, increasing cell turnover and resulting in autodebridement; wound would slough any debris, resulting in clean, hopefully intact surface. If patient indeed has eczema, steroid ointment is advised, but again, since patient is not agreeable, this is a moot point. At [facility] request, [employer] provided Medline Remedy Nutrashield ointment which has silicone base. This barrier ointment is clear and not sticky, which patient may be agreeable to using after shower. The silicone will provide a minor protective barrier over cracked skin and may calm flaking and crusting. Patient should follow up with dermatology if symptoms persist and silicone is not effective.
--- NOTE | 2017-02-07 14:11 | NUR ---
Nursing 7a-3p Pt showered this morning with doctor encouragement and staff assist. Linens and clothing changed. Wound care did consult refer to note. Pt resistive to barrier cream being applied to his legs but he did agree with doctor encouragement. Nursing order in place to apply barrier cream to lower legs twice a day. Morning BG 87, he received half a dose of his nutritional insulin with his breakfast. Pt refusing to wear socks or his slippers when out on the unit. He has been isolative to his room today.
[2017-02-07 17:45] VITALS: BP 116/68; PULSE 69; RESP 16
--- NOTE | 2017-02-07 18:29 | NUR ---
[facility] Day Shift Pt maintained behavioral control throughout the shift. Pt affect appears flat, blunt. Pt spends almost the entire shift resting in his room. Pt is not social with staff or peers when active on the unit. Pt is malodorous, though less so following staff-assisted bathing in the AM. Pt did not attend community meeting or any group activities. Pt ate approx 30% of all meals.
--- NOTE | 2017-02-07 19:53 | NUR ---
Nurses Note Evening Patient has been isolating to his room except for meals,medications and snack time. His blood sugars have been stable. Patient was showered on the day shift,barrier creame to be applied bilaterally to lower extremities twice daily. Patient continues to be somewhat resistive to care requiring encouragement. Will maintain q 15min. checks for safety and support. Addendum: 02/07/17 at 1958 by YU DOLL RN Amended: Links added. Addendum: 02/07/17 at 221 by YU DOLL RN Nurses Note Wound care Patient became angry and yelling when barrier creame was applied to lower legs pulling away from the nurse. Patient was observed talking and laughing to himself while in bed.
[2017-02-07] MEDS: Insulin GLARgine 100 Unit/mL Syringe SUBQ SCH (20:33)
--- NOTE | 2017-02-07 22:46 | PCM.PNPSY ---
Subjective Date of Service Feb 07, 2017 Subjective The patient reports that he did not communicate kinetically with his parents so far today. The patient was seen by the wound care nurse today who recommended moisturizing cream. Patient was initially reluctant but then agreed to it. Patient required significant coaxing but did take shower today. Although patient stating he cannot use a walker, he was noted to transfer from bed to wheelchair with little assistance. Sleep: 7.25 hours Appetite: okay Suicidal and homicidal ideation: denies Auditory hallucinations: denies Visual hallucinations: denies Other Psychotic Symptoms: telepathy as above Anxiety: denies Depression: denies Mental Status Exam Appearance: Unkept, Malodorous (but improved) Attitude: Pleasant, Cooperative, Guarded Behavior: Stereotypic movements Affect: Restricted Mood: Euthymic Thought Process/Associations: Goal Directed Speech Production: Normal Speech Rate: Normal Speech Articulation: Normal Thought Content: Somatic preoccupation, Perseveration Danger to Self/Suicidal Ideati: None Danger to Others: None Delusions: Paranoid (Endorses) Hallucinations: Auditory (Endorses), Visual (Denies) Consciousness: Alert Orientation: Person, Place, Date Memory: Untestable Estimate Intellectual Function: Average Basis for IQ estimate: Word use/vocabulary, Educational history Attention/Concentration & Cogn: Impaired Insight: Limited Judgement: Limited Mental Health Plan The patient is a 66-year-old male admitted under a 14-day order from [place], [place]. The patient reportedly is a long-term client of [facility] residential treatment services. He has received treatment for schizophrenia, paranoid type and has had a recent refusal of medications with significant decline of function. There was a concern for imminent danger to self with refusal of all medications including insulin. The patient was subsequently converted to a voluntary stay. As the patient has been unable to manage his insulin and was requesting discharge, he was referred to the designated mental health professional and subsequently detained on a 72 hour hold. The patient continues to isolate to his room and reports communicating telepathically with his family. As the patient's guardian is no longer working on placement, referral to a geropsychiatric facility for long-term placement may be his only option. Nell from [facility] indicates [facility] and [facility] may be the only choices for him for placement. [place] AXIS I: Schizophrenia, paranoid type. AXIS II: Deferred. AXIS III: 1. History of insulin-dependent diabetes. 2. History of hypertension. AXIS IV: Stressors are noted for disturbance of coping, ineffective management of the patient's transition of care through the assigned guardian. AXIS V: Global Assessment of Functioning, current 30 Treatments 1. The patient is admitted to the inpatient unit and will be provided a safe and secure environment. 2. The patient is denying current active suicidality and is not in need of a one-to-one at this time. 3. The patient is encouraged to participate with group and milieu activities. 4. The patient will be seen by the treatment team on a daily basis to assess symptoms, side effects and response to treatment. 5. Fluphenazine 5 mg twice a day with 25 mg decanoate every 2 weeks last dose given 01/26/2017). 6. The patient will be continued on Insulin Humalog subcutaneous per sliding scale scale protocol 7. Appreciate case resolution specialist assessment and recommendations. 8. Discharge will need to be postponed until penitentiary can be located as guardian is refusing to accept patient or assist with placement. 9. Patient declined PT consult for walker. 10. Hearing for 14 day more restrictive order will be on 02/09/2017. Estrada Jackson MD Feb 07, 2017 16:29
--- NOTE | 2017-02-08 05:25 | NUR ---
nursing, nights, 11-7 s/o- has appeared to sleep after 2244 during q 15 minute assessments. a- no apparent distress. p- monitor behavior/emotional state, quality, times and amount of sleep, use and effect of medication. darian
[2017-02-08] MEDS: Insulin LISPRO Medium-Dose Scale SUBQ SCH ×4 (07:57→21:25)
[2017-02-08 10:34] VITALS: BP 114/59; PULSE 74; RESP 14
--- NOTE | 2017-02-08 10:44 | NUR ---
Nursing Day Pt cooperative with care. He allowed nursing staff to apply barrier cream to his lower legs without difficulty. He stated he would be willing to shower every 3 days. Am BG 129, no extra coverage required. He ate his breakfast. He reported feeling "Fine" and "No" he does not think he is going to . Pt isolative to room but responsive to staff upon approach.
--- NOTE | 2017-02-08 16:27 | PCM.PNPSY ---
Subjective Date of Service Feb 08, 2017 Subjective The patient reported that he was doing well and that he had kinetically communicated with "my own body... God told me before conception I would be in this body for 70 years." When discussing the difficulties he had had at [facility], the patient agreed to shower every 3 days. He reported that he would take his next shower on Sunday. When asked why he did not communicate he stated that they were overly familiar stating for example, "how ya doin'?" instead of "good morning, however you this morning?" He denied side effects. Sleep: 7.25 hours, "good" Appetite: Good Suicidal and homicidal ideation: Denies Auditory hallucinations: Denies, but see above Visual hallucinations: Denies Other Psychotic Symptoms: Delusions as above Anxiety: Denies Depression: Denies Mental Status Exam Vital Signs Vital Signs Date Time Temp Pulse Resp B/P Pulse Ox O2 Delivery O2 Flow Rate FiO2 02/08/17 10:34 36.0 74 14 114/59 Appearance: Unkept, Malodorous (but improved) Attitude: Pleasant, Cooperative, Guarded Behavior: Stereotypic movements Affect: Restricted Mood: Euthymic Thought Process/Associations: Goal Directed Speech Production: Normal Speech Rate: Normal Speech Articulation: Normal Thought Content: Somatic preoccupation, Perseveration Danger to Self/Suicidal Ideati: None Danger to Others: None Delusions: Paranoid (Endorses) Hallucinations: Auditory (Endorses), Visual (Denies) Consciousness: Alert Orientation: Person, Place, Date Memory: Untestable Estimate Intellectual Function: Average Basis for IQ estimate: Word use/vocabulary, Educational history Attention/Concentration & Cogn: Impaired Insight: Limited Judgement: Limited Mental Health Plan The patient is a 66-year-old male admitted under a 14-day order from [place], [place]. The patient reportedly is a long-term client of [facility] residential treatment services. He has received treatment for schizophrenia, paranoid type and has had a recent refusal of medications with significant decline of function. There was a concern for imminent danger to self with refusal of all medications including insulin. The patient was subsequently converted to a voluntary stay. As the patient has been unable to manage his insulin and was requesting discharge, he was referred to the designated mental health professional and subsequently detained on a 72 hour hold. The patient continues to isolate to his room and reports communicating telepathically with his family. The patient is cooperating with treatment and showers every few days. He has not exhibited any violent behavior. As the patient's guardian is no longer working on placement, referral to a geropsychiatric facility for long- term placement may be his only option. Nell from [facility] indicates [facility] and [facility] may be the only choices for him for placement. [place] AXIS I: Schizophrenia, paranoid type. AXIS II: Deferred. AXIS III: 1. History of insulin-dependent diabetes. 2. History of hypertension. AXIS IV: Stressors are noted for disturbance of coping, ineffective management of the patient's transition of care through the assigned guardian. AXIS V: Global Assessment of Functioning, current 30 Treatments 1. The patient is admitted to the inpatient unit and will be provided a safe and secure environment. 2. The patient is denying current active suicidality and is not in need of a one-to-one at this time. 3. The patient is encouraged to participate with group and milieu activities. 4. The patient will be seen by the treatment team on a daily basis to assess symptoms, side effects and response to treatment. 5. Fluphenazine 5 mg twice a day with 25 mg decanoate every 2 weeks last dose given 01/26/2017). Next dose due 02/09/2017. 6. The patient will be continued on Insulin Humalog subcutaneous per sliding scale scale protocol 7. Appreciate route sales specialist assessment and recommendations. 8. Discharge will need to be postponed until alf can be located as guardian is refusing to accept patient or assist with placement. 9. Patient declined PT consult for walker. 10. Hearing for 14 day more restrictive order will be on 02/09/2017. Estrada Jackson MD Feb 08, 2017 16:26
--- NOTE | 2017-02-08 17:02 | NUR ---
Observations 5430-1000 Pt isolated to room for much of the day, only attending meals and snacks. Pt refused shower, stating "I only have to take a shower once every three days." Pt had limited interaction with staff and peers, very brief with answers and flat affect. Pt did not participate in group activities, he was observed every 15 minutes of shift as directed.
--- NOTE | 2017-02-08 18:51 | NUR ---
Luster Applicator/Counselor: S: "I'm kinetically communicating with my own body. That's because I have 2 bodies." O: Patient slept 7.25 hours last night per staff. Patient denies S/I and H/I. He also denies auditory and visual hallucinations. Depression is "no" and anxiety is "no." Patient agreed to shower every 3 days. This speech writer left a voice message for Nell [place] [facility] [place], , and Karoline Director Of Food And Nutrition at [facility], , requesting a call back. Awaiting a call back. A: Patient is cooperative, disheveled, guarded, anxious, restricted affect, dysthymic, tangential, paranoid, limited insight, poor judgment. P: Follow the care plan, coordinate with out-patient providers.
[2017-02-08] MEDS: Insulin GLARgine 100 Unit/mL Syringe SUBQ SCH (21:25)
--- NOTE | 2017-02-09 04:11 | NUR ---
Nursing Noc Pt isolative to room, pleasant and guarded when asked about mood or delusions, Noted HS blood sugar of 72. Pt given snack of crackers and Yogurt and blood sugar rechecked one hour later with result of 173. Long acting given as ordered. Pt then reported he had not eaten his dinner and would like it. Dinner obtained and patient noted to eat it at 2300. Barrier cream applied to lower extremities as directed. Pt remains isolative. Continuing to monitor mood, behavior, emotional state and sleep times. Q15 minute safety checks performed as directed. [facility] Addendum: 02/09/17 at 0416 by JAIR SIU RN 0300 blood sugar checked and recorded.
[2017-02-09] MEDS: Insulin LISPRO Medium-Dose Scale SUBQ SCH ×4 (07:58→20:24)
[2017-02-09] MEDS: FLUPHENAZINE DECANOATE 25 MG/ML IM SCH (12:34)
--- NOTE | 2017-02-09 14:19 | NUR ---
Nursing Days Pt bright and smiling after his court session. The plan is for him to go to [facility], he is awaiting a bed opening. He tolerated the application of lotion to his lower legs. He received his AM & Noon dose of nutritional insulin. He did not receive extra coverage at lunch time because BG taken after he had eaten. He denied hearing voices and stated he was " Fine".
--- NOTE | 2017-02-09 18:22 | NUR ---
[facility] Day Shift Pt affect and behavior unchanged from previous shifts. Pt maintained behavioral control throughout the shift. Pt affect appears flat, blunt. Pt spends almost the entire shift resting in his room. Pt is not social with staff or peers when active on the unit. Pt is malodorous, though less so following staff-assisted bathing in the AM. Pt attended community meeting, but did not attend any group activities. Pt ate approx 30% of all meals.
[2017-02-09 19:05] VITALS: BP 122/86; PULSE 83; RESP 14
--- NOTE | 2017-02-09 19:37 | NUR ---
Pharmacy Student/Counselor: S/O: Patient only slept 4.25 hours last night per staff. Patient denies S/I and H/I. He also denies auditory and visual hallucinations. Depression is 0/10 and anxiety is 0/10. This technical proposal writer left another voice message for Nell, [place] [facility] [place], . Nell returned the call and left a voice message that she will be back in the office Sunday. This technical proposal writer spoke with Karoline, Terminal Supervisor at [facility], , and faxed a face sheet, History & Physical, med list, and 10 days of progress notes as requested by Alyssia. This technical proposal writer spoke with Karoline later in the day about available male bed. Karoline stated that the male bed had already been given to another male patient prior to my initial phone call. However, Karoline stated that she will still look over the faxed documentation and hold documentation in case another bed becomes available. This technical proposal writer received a voice message from Sedrick Gonsalez of [place], , and stated that she has additional information on other placements. A: Patient is cooperative, disheveled, guarded, anxious, restricted affect, dysthymic, tangential, paranoid, limited insight, poor judgment. P: Follow the care plan, coordinate with out-patient providers.
[2017-02-09] MEDS: Insulin GLARgine 100 Unit/mL Syringe SUBQ SCH (20:24)
--- NOTE | 2017-02-09 22:43 | NUR ---
NURSING NOTE [id number] Mood: "good" Affect: flat but brightened several times in conversation Behavior: isolating to room, in bed, except to come out for meals. Med compliant. Dinner FSBS 177-- 1 u correctional insulin given-- HS FSBS 146. Thought processes: denies AH/VH, no disturbed thought content expressed.
--- NOTE | 2017-02-09 23:38 | PCM.PNPSY ---
Subjective Date of Service Feb 09, 2017 Subjective The patient reported that he was doing well and that he had kinetically communicated with "my own body" and with his parents. The patient was in court today for his 14 day order and agreed to shower every 3 days. He reported that he would take his next shower on Sunday. He again stated that he did not communicate as he felt that they were overly familiar stating for example, and would speak if a more formal/professional tone were used. Patient is agreeable to transfer to [facility] in [place] when bed available. He denied side effects. Sleep: 4.75 hours, "good" Appetite: Good Suicidal and homicidal ideation: Denies Auditory hallucinations: Denies, but see above Visual hallucinations: Denies Other Psychotic Symptoms: Delusions as above Anxiety: Denies Depression: Denies Mental Status Exam Appearance: Unkept Attitude: Pleasant, Cooperative, Guarded Behavior: Stereotypic movements Affect: Restricted Mood: Euthymic Thought Process/Associations: Goal Directed Speech Production: Normal Speech Rate: Normal Speech Articulation: Normal Thought Content: Somatic preoccupation, Perseveration Danger to Self/Suicidal Ideati: None Danger to Others: None Delusions: Paranoid (Endorses) Hallucinations: Auditory (Endorses), Visual (Denies) Consciousness: Alert Orientation: Person, Place, Date Memory: Short Term Memory (Impaired), Intermediate Memory (Intact) Estimate Intellectual Function: Average Basis for IQ estimate: Word use/vocabulary, Educational history Attention/Concentration & Cogn: Impaired Insight: Limited Judgement: Limited Mental Health Plan The patient is a 66-year-old male admitted under a 14-day order from [place], [place]. The patient reportedly is a long-term client of [facility] treatment [facility]. He has received treatment for schizophrenia, paranoid type and has had a recent refusal of medications with significant decline of function. There was a concern for imminent danger to self with refusal of all medications including insulin. The patient was subsequently converted to a voluntary stay. As the patient has been unable to manage his insulin and was requesting discharge, he was referred to the designated mental health professional and subsequently detained on a 72 hour hold. The patient continues to isolate to his room and reports communicating telepathically with his family. The patient is cooperating with treatment and showers every few days. He has not exhibited any violent behavior. As the patient's guardian is no longer working on placement, referral to a geropsychiatric facility for long- term placement may be his only option. Nell from [facility] indicates [facility] may be the only choices for him for placement. He received a 14 day MRO today and a possible bed at [facility] may be available as early as Sunday. [place] AXIS I: Schizophrenia, paranoid type. AXIS II: Deferred. AXIS III: 1. History of insulin-dependent diabetes. 2. History of hypertension. AXIS IV: Stressors are noted for disturbance of coping, ineffective management of the patient's transition of care through the assigned guardian. AXIS V: Global Assessment of Functioning, current 35 Treatments 1. The patient is admitted to the inpatient unit and will be provided a safe and secure environment. 2. The patient is denying current active suicidality and is not in need of a one-to-one at this time. 3. The patient is encouraged to participate with group and milieu activities. 4. The patient will be seen by the treatment team on a daily basis to assess symptoms, side effects and response to treatment. 5. Fluphenazine 5 mg twice a day with 25 mg decanoate every 2 weeks last dose given 01/26/2017). Next dose due 02/09/2017. 6. The patient will be continued on Insulin Humalog subcutaneous per sliding scale scale protocol 7. Appreciate senior publications specialist assessment and recommendations. 8. Discharge will need to be postponed until detention can be located; [facility] reportedly has bed available and patient may transfer there early next week. 9. Patient declined PT consult for walker. 10. Patient agreed to 14 day MRO. Estrada Jackson MD Feb 09, 2017 16:59
--- NOTE | 2017-02-10 05:03 | NUR ---
NURSE NIGHT NOTE [id number]: Pt was asleep at the beginning of the shift and slept through the night. Pt monitored q15 minutes for location, safety and accountability.
[2017-02-10] MEDS: Insulin LISPRO Medium-Dose Scale SUBQ SCH ×4 (07:58→22:00)
--- NOTE | 2017-02-10 14:12 | NUR ---
NURSE NOTE DAY Mood: "I'm fine." Denies depression, anxiety. Affect: Restricted, smiles at times. Behavior: Isolated in room much of shift. Requested to shower in the morning. Thought Content/Process: "My soul has not been transported to [place] yet. I need to consult my kinetic books." Delusional, bizarre. Denies SI, HI. Denies AH, VH. PRN/NURS Notes: Showered at 1100 per patient request. Applied leg cream at 1145. Breakfast BG 127, Lunch 121 -- gave nutritional insulin only at both meals.
--- NOTE | 2017-02-10 14:49 | PCM.PNPSY ---
Subjective Date of Service Feb 10, 2017 Subjective I spent 30 minutes both reviewing treatment plan with our clinical team, interviewing the patient and providing supportive/educational psychotherapy. I spent more than 50% of the time counseling the patient. I reviewed the treatment plan with the him and discussed options available including the potential risks, benefits and side effects. Mohsen reports relatively good thought organization and mood stability. He was disappointed that he did not on 02/01/2017. He is requesting to leave our unit and be transferred to a hotel in [place]. He denies being suicidal merely states that this was when he thought he would . Staff reports that he has been isolative and participating poorly in one-to-one unit and group activities. He slept 8 hours and denies depression or manic or psychotic symptoms review. He denies medication side effects. He was not able to identify his medications nor what they were used to treat. Mental Status Exam Appearance: Unkept Attitude: Pleasant, Cooperative, Guarded Behavior: Stereotypic movements Affect: Restricted Mood: Euthymic Thought Process/Associations: Goal Directed Speech Production: Normal Speech Rate: Normal Speech Articulation: Normal Thought Content: Somatic preoccupation, Perseveration Danger to Self/Suicidal Ideati: None Danger to Others: None Delusions: Paranoid (Endorses) Hallucinations: Auditory (Endorses) Consciousness: Alert Orientation: Person, Place, Date Memory: Short Term Memory (Impaired), Assisted Memory (Intact) Estimate Intellectual Function: Average Basis for IQ estimate: Word use/vocabulary, Educational history Attention/Concentration & Cogn: Impaired Insight: Limited Judgement: Limited Mental Health Plan Mohsen is a 66-year-old male admitted under a 14-day order from [place], [place]. He is a long-term client of [facility]. He has received treatment for schizophrenia, paranoid type and has had a recent refusal of medications with significant decline of function. There was a concern for imminent danger to self with refusal of all medications including insulin. The patient was subsequently converted to a voluntary stay. Per nursing staff he is unable to manage his medications especially insulin without nursing staff. He is unable to navigate in terms of a hotel and getting his food with his wheelchair. He is unable to manage his insulin or his diabetes without supervision. Staff reports that he has been isolative and participating poorly in one-to-one unit and group activities. He slept 8 hours and denies depression symptoms review. He is requesting discharge and to be transferred to a hotel in [place] yet he cannot handle his insulin injections nor can he take medications on a regular basis. We problem solved different ways that he could get transportation through his computer aided design operator and food to his hotel. He is showing improved insight and initiative at least verbally. He remains quietly psychotic and as a result his judgment is severely impaired. [place] AXIS I: Schizophrenia, paranoid type. AXIS II: Deferred. AXIS III: 1. History of insulin-dependent diabetes. 2. History of hypertension. AXIS IV: Stressors are noted for disturbance of coping, ineffective management of the patient's transition of care through the assigned guardian. AXIS V: Global Assessment of Functioning, current 35 Treatments 1. The patient is admitted to the inpatient unit and will be provided a safe and secure environment. 2. The patient is denying current active suicidality and is not in need of a one-to-one at this time. 3. The patient is encouraged to participate with group and milieu activities. 4. The patient will be seen by the treatment team on a daily basis to assess symptoms, side effects and response to treatment. 5. Fluphenazine 5 mg twice a day with 25 mg decanoate every 2 weeks last dose given 01/26/2017). Next dose due 02/09/2017. 6. The patient will be continued on Insulin Humalog subcutaneous per sliding scale scale protocol 7. Appreciate neuroscience specialist assessment and recommendations. 8. Discharge will need to be postponed until custodial can be located; [facility] has bed available and patient may transfer there early next week. 9. Patient declined PT consult for walker. 10. Patient agreed to 14 day Bird Samayoa MD Feb 10, 2017 14:49
[2017-02-10 16:25] VITALS: BP 121/87; PULSE 69; RESP 16
--- NOTE | 2017-02-10 18:17 | NUR ---
Compensation And Benefits Manager/Counselor S:"I want to go to [facility]. That's where my is." O: Patient denies any SI or HI, no AVH, no anxiety or depression. A: Patient has secluded himself to his room. Patient is cooperative, disheveled, guarded, restricted affect, dysthymic, limited insight, poor judgment. P:Follow care plan and coordinate with outpatient providers.
--- NOTE | 2017-02-10 18:30 | NUR ---
[facility] Day Shift Pt affect and behavior unchanged from previous shifts. Pt maintained behavioral control throughout the shift. Pt affect appears flat, blunt. Pt spends almost the entire shift resting in his room. Pt is not social with staff or peers when active on the unit. Pt remains malodorous. Pt attended community meeting, but did not attend any group activities. Pt ate approx 70% of all meals.
[2017-02-10] MEDS: Insulin GLARgine 100 Unit/mL Syringe SUBQ SCH (20:46)
--- NOTE | 2017-02-10 22:01 | NUR ---
NURSING NOTE [id number] Mood: "alright, thank you" Affect: withdrawn, brightens in conversation Behavior: pt. continues to isolate in his room either in bed or in wheelchair, comes out for meals. Med compliant. FSBS @ dinner was 97 (nutritional insulin dose was halved; 2.5 u given), and HS FSBS was 121. Thought processes: humming and murmuring to himself in his room this evening, but denies AH/VH. Also denies SI.
--- NOTE | 2017-02-11 06:15 | NUR ---
Nursing Note Beeswax Bleacher 11pm-7am Patient was in bed at start of shift. He was noted to be asleep at [id number] and [id number]. Patient awoke again and was up in wheelchair in room for an hour, then was noted to be back in bed asleep and remains asleep at current time with 5.75+ hours. Pt monitored q 15 minutes for safety, location and accountability.
[2017-02-11] MEDS: Insulin LISPRO Medium-Dose Scale SUBQ SCH ×4 (07:57→20:43)
--- NOTE | 2017-02-11 14:07 | PCM.PNPSY ---
Subjective Date of Service Feb 11, 2017 Subjective I spent 30 minutes both reviewing treatment plan with our clinical team, interviewing the patient and providing supportive/educational psychotherapy. I spent more than 50% of the time counseling the patient. I reviewed the treatment plan with the him and discussed options available including the potential risks, benefits and side effects. Mohsen reports relatively good thought organization and mood stability. He is requesting to leave our unit and be transferred to a care center. He denies being suicidal. Staff reports that he has been isolative and participating poorly in one-to-one unit and group activities. He slept 6 hours and denies depression or manic or psychotic symptoms review. He appears to have multiple psychotic signs including responding to internal stimuli and continues to have significant delusional themes to his content. He denies medication side effects. He was not able to identify his medications nor what they were used to treat. Mental Status Exam Appearance: Unkept Attitude: Pleasant, Cooperative, Guarded Behavior: Stereotypic movements Affect: Restricted Mood: Euthymic Thought Process/Associations: Goal Directed Speech Production: Normal Speech Rate: Normal Speech Articulation: Normal Thought Content: Rastafari preoccupation, Somatic preoccupation, Perseveration Danger to Self/Suicidal Ideati: None Danger to Others: None Delusions: Paranoid (Endorses), Somatic (Endorses) Hallucinations: Auditory (Endorses) Consciousness: Alert Orientation: Person, Place, Date Memory: Short Term Memory (Impaired), Senior Living Memory (Intact) Estimate Intellectual Function: Average Basis for IQ estimate: Word use/vocabulary, Educational history Attention/Concentration & Cogn: Impaired Insight: Limited Judgement: Limited Mental Health Plan Mohsen is a 66-year-old male admitted under a 14-day order from [place], [place]. He is a long-term client of [facility] treatment [facility]. He has received treatment for schizophrenia, paranoid type and has had a recent refusal of medications with significant decline of function. There was a concern for imminent danger to self with refusal of all medications including insulin. The patient was subsequently converted to a voluntary stay. Per nursing staff he is unable to manage his medications especially insulin without nursing staff. He is unable to navigate in terms of a hotel and getting his food with his wheelchair. He is unable to manage his insulin or his diabetes without supervision. Staff reports that he has been isolative and participating poorly in one-to-one unit and group activities. He slept 8 hours and denies depression symptoms review. He is requesting discharge and to be transferred to a hotel in [place] yet he cannot handle his insulin injections nor can he take medications on a regular basis. We problem solved different ways that he could get transportation through his hospital coordinator and food to his hotel. He is showing improved insight and initiative at least verbally. He remains quietly psychotic and as a result his judgment is severely impaired. [place] AXIS I: Schizophrenia, paranoid type. AXIS II: Deferred. AXIS III: 1. History of insulin-dependent diabetes. 2. History of hypertension. AXIS IV: Stressors are noted for disturbance of coping, ineffective management of the patient's transition of care through the assigned guardian. AXIS V: Global Assessment of Functioning, current 35 Treatments 1. The patient is admitted to the inpatient unit and will be provided a safe and secure environment. 2. The patient is denying current active suicidality and is not in need of a one-to-one at this time. 3. The patient is encouraged to participate with group and milieu activities. 4. The patient will be seen by the treatment team on a daily basis to assess symptoms, side effects and response to treatment. 5. Fluphenazine 5 mg twice a day with 25 mg decanoate every 2 weeks last dose given 01/26/2017). Next dose due 02/09/2017. 6. The patient will be continued on Insulin Humalog subcutaneous per sliding scale scale protocol 7. Appreciate health and nutrition specialist assessment and recommendations. 8. Discharge will need to be postponed until fpc can be located; [facility] has bed available and patient may transfer there early next week. 9. Patient declined PT consult for walker. 10. Patient agreed to 14 day Bird Samayoa MD Feb 11, 2017 14:07
--- NOTE | 2017-02-11 14:26 | NUR ---
NURSE NOTE DAY Mood: "I'm fine." Affect: Flat. Behavior: Isolated in room all shift. Up for meals. Limited interaction with staff and peers. Thought Content/Process: "Put the lotion on my legs, not on my feet . . . not at all." Delusional, per Dr. Thomson pt is looking forward to placement after discharge because he will "get a new body" and his "" will too. Linked, linear, goal-oriented. Denies SI, HI. Denies AH, VH. PRN/NURS Notes: Applied lotion to legs per nursing orders.
--- NOTE | 2017-02-11 17:57 | NUR ---
[facility] Day Shift Pt affect and behavior unchanged from previous shifts. Pt maintained behavioral control throughout the shift. Pt affect appears flat, blunt. Pt spends almost the entire shift resting in his room. Pt is not social with staff or peers when active on the unit. Pt remains malodorous. Pt did not attend community meeting or group activities throughout the shift. Pt ate approx 70% of all meals.
--- NOTE | 2017-02-11 18:16 | NUR ---
Submarine Advisory Team Watch Officer/Counselor S:"I'm not hungry." O: Patient denies any SI or HI, no AVH, no anxiety or depression. A: Patient has secluded himself to his room. Patient slept for 5.75 hrs. Patient is cooperative, disheveled, guarded, restricted affect, dysthymic, limited insight, poor judgment. P:Follow care plan and coordinate with outpatient providers.
[2017-02-11] MEDS: Insulin GLARgine 100 Unit/mL Syringe SUBQ SCH (20:42)
--- NOTE | 2017-02-11 22:41 | NUR ---
NURSING NOTE [id number] Mood: "okay" Affect: neutral Behavior: pt. was much more visible this evening than the past several evenings. Pt. was out for all meals, and came out to watch a football game and later a movie. Also out for evening snack. FSBS: 88 @ dinner (2.5 u nutritional insulin given) and 187 @ HS. Thought processes: pt. denies AH/VH/SI/HI. Pt. denied depression or anxiety. Pt. smiled appropriately off and on in conversation. Some church delusional thought content noted but otherwise appropriate in conversation.
--- NOTE | 2017-02-12 05:07 | NUR ---
Nursing Note Tanbark Laborer 11pm to 7am Pt awake at start of shift in his room. Fluctuated between bed area and common area for several hours before settling in for the night. 0300 BS missed as this fiction and nonfiction prose writer did not want to disturb pt who had just fallen asleep. Pt remains calm and pleasant, declined offers of assistance stating Im ok. No issues reported or observed. Monitored pt. with q 15 minute face checks for safety, location and accountability
[2017-02-12] MEDS: Insulin LISPRO Medium-Dose Scale SUBQ SCH ×4 (07:42→20:54)
--- NOTE | 2017-02-12 14:35 | NUR ---
Nursing Days Pt smiling and asking "When do I get to go? Could it be in three days?" Pt excited about his potential discharge and placement at [facility] this week. No complaints. Am OT 132, Noon OT 159. Received scheduled doses of insulin. Out for meals otherwise spending majority of time in his room.
--- NOTE | 2017-02-12 16:18 | NUR ---
Healthcare Insurance Sales Agent/Counselor S:"I'm ready to leave." O: Patient denies any SI or HI, no AVH, no anxiety or depression. A:Patient is cooperative, disheveled, guarded, restricted affect, dysthymic, limited insight, poor judgment. This real estate underwriter spoke to Sedrick Gonsalez from [place], and was informed that the patient information coordinator for [facility] will be on leave for this week. Sedrick is exploring other options, which include [facility] in [place], and [facility]. She will update the case management team as she has more information. P:Follow care plan and coordinate with outpatient providers
--- NOTE | 2017-02-12 18:25 | PROG NOTE ---
[address] [address] PROGRESS NOTE PATIENT: SHARRI YOUNG : 1950 MR#: [id number] ADMIT: 01/05/2017 JOB ID: [id number] DATE: 02/12/2017 CHIEF COMPLAINT: "You came back." This is per patient report. HISTORY OF PRESENT ILLNESS: As stated above, the patient did identify myself with recollection of previous care. Since my departure, the patient has been re-detained and is currently awaiting a possibility of a placement in a group care facility in [facility]. The guardian has been communicating with staff inconsistently and APS has been notified. The patient reportedly has been cooperating with all medication management but does require significant assistance with self-care and administration of medications including his insulin orders. MENTAL STATUS EXAM: The patient makes intermittent eye contact. He is casually dressed in scrubs. His speech is slow but steady. His mood is neutral. Affect is blunted. His thought process shows evidence of loose and disorganized thinking. Per staff report, the patient is fundamentally at baseline. Thought content: He denied any evidence of current suicidal, homicidal ideation. No evidence of active hallucinations on exam, but he clearly responds to internal stimulus as seen in the Day Area. He was alert, disoriented to place and time. Recalled myself by name. His insight and judgment are deemed poor. PHYSICAL EXAM: All vital signs are current. Temperature is 36.4, pulse 69, respirations 16, BP 121/87. MEDICATION REVIEW: Includes Prolixin decanoate 25 mg q. 14 days last dose given February 09, insulin Lantus 35 units q.h.s. along with sliding scale, Prolixin tablets 5 mg b.i.d., aspirin 81 mg daily, lisinopril 10 mg daily. ASSESSMENT: [place] I Schizophrenia, paranoid type. [place] II: deferred [place] III 1. History of insulin-dependent diabetes. 2. History of hypertension. [place] IV Stressors are noted for disturbance of coping, ineffective management of patient's transition of care through the assigned guardian. [place] V: Global assessment of functioning: Current 35. PLANS: 1. Recommendation for continuation of placement options being pursued through Guardian and pillowcase sewer. 2. Continuation of all medications noted. MTDD
[2017-02-12 19:10] VITALS: BP 110/66; PULSE 81; RESP 17
[2017-02-12] MEDS: Insulin GLARgine 100 Unit/mL Syringe SUBQ SCH (20:53)
--- NOTE | 2017-02-13 02:32 | NUR ---
Observations 1900 to 0700 Pt did not attend wrap up group. Pt did not eat a snack. Pt spends free time asleep in bed. Pt is isolative and does not interact with peers. Pt maintained behavioral control. Pt appeared asleep at 1930 and only woke when briefly getting medications from RN. Pt respirations were observed when asleep. Staff completed 15 min close observations as ordered.
[2017-02-13] MEDS: Insulin LISPRO Medium-Dose Scale SUBQ SCH ×4 (07:56→22:00)
[2017-02-13 09:00] VITALS: BP 124/73; PULSE 96
--- NOTE | 2017-02-13 11:36 | PROG NOTE ---
[address] [address] PROGRESS NOTE PATIENT: MOHSEN YOUNG : 1950 MR#: [id number] ADMIT: 01/05/2017 JOB ID: [id number] DATE: 02/13/2017 CHIEF COMPLAINT: "Can I go back to [place]?" this is per patient report. HISTORY OF PRESENT ILLNESS: As stated above the patient did confirm with myself that he is hopeful that he can return back to [place] and identified that he wants to be in the same facility as his . He went on to further discussed that he and his were at the age of 6 and were after three days. He reports that they he maintained contact kinetically and during the process of interview. He had several conversations with his spouse. He appeared to be communicating telekinetically and stated that he was confirming that there is a bed available for him in [place]. OBJECTIVE: On mental status exam, as noted above Mohsen was able to communicate with myself. He attempted to communicate with his spouse, which he evidently at the age of [age], but was after three days. He reports that he believes that there is a bed available as noted above. His speech is of normal tone, frequency, and volume. His mood and affect are congruent. His thought process shows evidence of racing thoughts, some loose and disconnected thinking. His thought content, he denied any evidence of current suicidal, homicidal ideation. No evidence of active hallucinations. He is quite delusional. No evidence of paranoia. He was alert, oriented to time, place, and person. His attention and concentration intact. Insight and judgment are poor. PHYSICAL EXAMINATION: Vital signs are current. Temperature is 36.1, pulse 81, respirations 17, BP 110/66. MEDICATION REVIEW: Include: 1. Prolixin 5 mg b.i.d. 2. Aspirin 81 mg daily. 3. Prolixin decanoate 25 mg q.14 days last injection noted February 09, 2017 at 12:35. 4. Insulin 35 units at bedtime. 5. Lisinopril 10 mg daily. ASSESSMENT: [place] I:Schizophrenia paranoid type. [place] II:Deferred. [place] III:1. History of hypertension. 2. History of insulin dependent diabetes. [place] IV:Stressors are noted for chronic mental health issues, inconsistent contact with guardian and disposition planning. [place] V:Current 35. PLAN: 1. Continuation of disposition including return back to alternative placements in [place], [place]. 2. Continuation of all medications as noted.
--- NOTE | 2017-02-13 14:09 | NUR ---
Nursing Day Pt showered on his own this morning and only needed help getting his pants on. Blood glucose both am and noon was 93 requiring only half of his nutritional insulin. He has been out for meals but otherwise isolating to his room. Pleasant upon approach. Taking medications as scheduled. No complaints.
--- NOTE | 2017-02-13 17:40 | NUR ---
Housekeeping Supervisor Hotel/Counselor S:"I need my fingernails cut." O: Patient denies any SI or HI, no AVH, no anxiety or depression. A: Patient has been more interactive on the unit, and has come out of his room a few times. Patient is cooperative, disheveled, guarded, restricted affect, dysthymic, limited insight, poor judgment. P:Follow care plan and coordinate with outpatient providers.
[2017-02-13] MEDS: Insulin GLARgine 100 Unit/mL Syringe SUBQ SCH (20:48)
--- NOTE | 2017-02-13 22:57 | NUR ---
EVENING NURSE NOTE [id number]: Pt was in his room at the beginning of the shift. Pt came out for dinner, then went back to bed afterwards. Pts BG was 162 at both dinner and HS readings. Pt monitored q15 min for location, safety, and accountability.
--- NOTE | 2017-02-14 04:04 | NUR ---
Observations 1900 to 0700 Pt ate a snack. No behavioral changes observed. Pt continues to utilize wheelchair but mostly remains in room in bed. Pt maintained behavioral control. Pt appeared asleep from 2230- 0100 and is currently resting in bed. Pt respirations were observed when asleep. Staff completed 15 min close observations as ordered.
--- NOTE | 2017-02-14 06:02 | NUR ---
Nursing Note Carpet Cleaner 11pm-7am Patient was in bed at start of shift. He was noted to be asleep from 1787-1014. Patient came out to dining room; Blood glucose at 0245 was 120. Patient returned to room and was noted to be in bed the remainder of the night. Patient slept 4+ hours. Pt monitored q 15 minutes for safety, location and accountability.
[2017-02-14] MEDS: Insulin LISPRO Medium-Dose Scale SUBQ SCH ×4 (08:29→21:30)
--- NOTE | 2017-02-14 13:15 | PROG NOTE ---
[address] [address] PROGRESS NOTE PATIENT: SHARRI YOUNG : 1950 MR#: [id number] ADMIT: 01/05/2017 JOB ID: [id number] DATE: 02/14/2017 CHIEF COMPLAINT: "I hope I get to go and live with my ." This per patient report. HISTORY OF PRESENT ILLNESS: As stated above the patient did identify again that he was hopeful that he can actually be discharged to a facility in [place] so that he can be reunited with his . The patient remains quite delusional nonetheless. OBJECTIVE: On mental status exam, he was cooperative. He maintained intermittent eye contact. He reportedly did actually shower yesterday and had staff assist with cutting his fingernails. His speech is of normal tone, frequency, and volume. His mood is neutral. His affect was incongruent at points. His thought process showed no evidence of racing thoughts, flight of ideas, loose or disconnected thinking. Thought content: He denied any evidence of current suicidal, homicidal ideation. No evidence of active hallucinations. He remains quite delusional with his open identification and perception that he is to a female that he met when he was 6 years old. He was alert, oriented to time and place. Attention and concentration are poor. Insight and judgment are poor. PHYSICAL EXAMINATION: Vital signs of current: Temperature is 36.5, pulse 96, respirations 17, BP 124/73. MEDICATION REVIEW: Includes Prolixin 5 mg q.h.s. Prolixin Decanoate, last injection on February 09, 25 mg. Insulin 35 units q.h.s. Lisinopril 10 mg daily. ASSESSMENT: [place] I: Schizophrenia, paranoid type. [place] II: Deferred. [place] III: 1. History of hypertension. 2. History of insulin-dependent diabetes. [place] IV: Stressors are noted for disposition planning, chronic mental health issues. [place] V: Global Assessment of Functioning of current 30. PLAN: 1. Recommendations for continuation of all medications noted. 2. Continuation of disposition planning as noted.
[2017-02-14 13:40] VITALS: BP 121/98; PULSE 68; RESP 16
--- NOTE | 2017-02-14 14:31 | NUR ---
Nursing Days Pt continues the same with no difficulties or complaints. Daily BG WNL. He is out for meals and spending time in his room napping. Taking medications as scheduled.
--- NOTE | 2017-02-14 18:24 | NUR ---
Hoist Cylinder Loader/Counselor: S/O: Patient only slept 4+ hours last night per staff. Patient denies S/I and H/I. He also denies auditory and visual hallucinations. Depression is 0/10 and anxiety is 0/10. A: Patient is cooperative, disheveled, guarded, anxious, restricted affect, dysthymic, tangential, limited insight, poor judgment. P: Follow the care plan, coordinate with out-patient providers.
--- NOTE | 2017-02-14 18:40 | NUR ---
[facility] Day Shift Pt affect and behavior unchanged from previous shifts. Pt maintained behavioral control throughout the shift. Pt affect appears flat, blunt. Pt spends almost the entire shift resting in his room. Pt is not social with staff or peers when active on the unit. Pt remains malodorous. Pt did not attend group activities throughout the shift. Pt ate approx 70% of all meals.
[2017-02-14] MEDS: Insulin GLARgine 100 Unit/mL Syringe SUBQ SCH (21:29)
--- NOTE | 2017-02-14 23:05 | NUR ---
EVENING NURSE NOTE [id number]: Pt stayed in his room for the majority of the shift, coming out for dinner late. Pts BG was 184 before dinner and 224 at bedtime. Pt has reported he feels fine and was given appropriate doses for sliding scale insulin each time. Pt has been in his room since about 1999. Pt monitored q15 min for safety, location and accountability.
--- NOTE | 2017-02-15 05:18 | NUR ---
nursing, nights, 11-7 s/o- has appeared to sleep after 0 during q 15 minute assessments. a- improved sleep, no apparent distress. p- monitor behavior/emotional state, quality, times and amount of sleep, use and effect of medication. darian
[2017-02-15] MEDS: Insulin LISPRO Medium-Dose Scale SUBQ SCH ×4 (08:19→22:00)
--- NOTE | 2017-02-15 13:27 | PROG NOTE ---
[address] [address] PROGRESS NOTE PATIENT: SHARRI YOUNG : 1950 MR#: [id number] ADMIT: 01/05/2017 JOB ID: [id number] DATE: 02/15/2017 CHIEF COMPLAINT: "I spoke with my again this morning. She is glad that I am coming back home." This per patient report. HISTORY OF PRESENT ILLNESS: As stated above, the patient was very cooperative, polite with myself. He identified that he has been speaking telekinetically with his earlier this morning and indicated that she is very excited about his return to the community. Per showcase trimmer we continue to wait on hearing about bed availability in the [facility]. The patient has continues to cooperate with all medication administration and shows no evidence of changes of baseline behavior. OBJECTIVE: On mental status exam, he was bright, cooperative, interactive. He maintained good eye contact throughout. His speech is of normal tone, frequency, and volume. His mood is neutral. Affect is congruent. His thought process shows no evidence of racing thoughts. He continues to be mildly loose but redirectable. His thought content: He denied any evidence of suicidal or homicidal ideation. No evidence of paranoia. He remains quite delusional, with statements of the above. He does have evidence of visual tracking and responding to internal stimulus throughout courses of conversation with myself and other staff members. He was alert, oriented to time, place, and person. Attention and concentration are fair. Insight and judgment are poor. PHYSICAL EXAMINATION: Vital signs of current: Temperature is 36.2, pulse 68, respirations 16, BP 121/98. MEDICATION REVIEW: Includes Prolixin decanoate 25 mg q.14 days last injection on the , Lantus 35 units q.h.s. as well as a sliding scale, Prolixin 5 mg b.i.d., lisinopril 10 mg daily. ASSESSMENT: [place] I: Schizophrenia, paranoid type. [place] II: Deferred. [place] III: 1. History of hypertension. 2. History of insulin-dependent diabetes. [place] IV: Stressors are noted for chronic disposition issues. [place] V: Global Assessment of Functioning of current 30. PLAN: 1. Continuation of all medications as noted. 2. Continuation of disposition planning with contact with the guardian.
[2017-02-15 15:52] VITALS: BP 107/57; PULSE 79; RESP 14
--- NOTE | 2017-02-15 20:38 | NUR ---
Observations 0900 - 0 Pt affect and mood remained same as previous shifts, flat, guarded, brighter when engaged, isolative. Pt was in his room most of the shift sitting in his wheelchair and/or laying in bed. Pt came out for meals and snack and then returning to his room. Pt was pleasant, polite and cooperative when approached. Pt maintained behavior throughout the shift. Pt attended meals in D.R. and ate 100% of his meals. Pt ate snack. Pt declined to attend unit activities. Pt declined to attend community meeting and did not set a daily goal. Pt was observed every 15 minutes through the shift as ordered.
[2017-02-15] MEDS: Insulin GLARgine 100 Unit/mL Syringe SUBQ SCH (20:47)
--- NOTE | 2017-02-16 05:19 | NUR ---
nursing, nights, 11-7 s- can i have a cup ? no i'm ok. o- has appeared to sleep after 2245 to 0130. came to the dinning room for a drink. returned to his room and alternated between his bed and his wheel chair. has spent the majority of his time lying quietly in bed. declined staff offer of assistance. blood sugar is 99 at 0300. assessed q 15 minutes. a- inadequate sleep, pleasant, no apparent physical distress. p- monitor behavior/emotional state, quality, times and amount of sleep, use and effect of medication. darian
[2017-02-16] MEDS: Insulin LISPRO Medium-Dose Scale SUBQ SCH ×4 (08:55→20:40)
[2017-02-16 11:12] VITALS: BP 106/67; PULSE 88; RESP 16
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
--- NOTE | 2017-02-16 13:49 | PROG NOTE ---
[address] [address] PROGRESS NOTE PATIENT: SHARRI YOUNG : 1950 MR#: [id number] ADMIT: 01/05/2017 JOB ID: [id number] DATE: 02/16/2017 CHIEF COMPLAINT: "I heard they have five openings." This is per patient report. HISTORY OF PRESENT ILLNESS: As stated above, the patient did identify that he believes that there are potentials of placements in [place]. However, this has not been confirmed. Calls have been placed with the guardian and voice mails left. However, there has been no call back at this time. Today the patient states that he did take a shower and was later seen in the day area. He remains isolative throughout the majority of the daytime, however, and continues to be quite delusional with beliefs that he has had telekinesis and other mind benz that nobody quite understands. OBJECTIVE: Mental status exam: He was cooperative, polite. He denied any evidence of acute distress. His speech was of normal tone, frequency, and volume. His mood was neutral. Affect was congruent. His thought process shows some loose and disorganized thinking. He again spoke about believing that he communicated telekinetically with his and others about placement options in [place]. He denies any suicidal or homicidal ideation. He was alert, oriented to place and time and person. Attention and concentration are fleeting. Insight and judgment are poor. PHYSICAL EXAM: Vital signs of current: Temperature is 36.3, pulse 88, respirations 16, BP 106/67. MEDICATION REVIEW: Includes: 1. Prolixin Decanoate every two weeks. Last injection on the , 25 mg. 2. Insulin 35 units q.h.s. 3. Prolixin 5 mg b.i.d. 4. Aspirin 81 mg daily. 5. Lisinopril 10 mg daily. ASSESSMENT: [place] I. Schizophrenia, paranoid type. [place] II. Deferred. [place] III. 1. History of hypertension. 2. History of insulin-dependent diabetes. [place] IV. Stressors noted for chronic disposition issues. [place] V. GAF current 30. PLANS: 1. Continuation of all medications as noted. 2. Continuation of disposition planning with contact with the guardian. 3. Continuation of MR14 as noted.
--- NOTE | 2017-02-16 13:52 | NUR ---
Nursing: "I'd rather be in [place] [facility]a skilled nursing in [place]" when asked how it was going for him. He is disheveled but did get a shower after an episode of incontinence this am(soft stool) Per MHU no skin problems noted. When given his meds, he knows them and what they're for. He comes out for meals, eats quickly and back into his room. He gets himself in and out of his bed independently. He denies thought disturbance/voices, or depression. He describes his mood 'pretty good." His BG were 93 and 118 and no sliding scale was needed.
--- NOTE | 2017-02-16 19:59 | NUR ---
Metal Fabricating Shop Helper/Counselor: S/O: Patient only slept 3 hours last night per staff. Patient denies S/I and H/I. He also denies auditory and visual hallucinations. Depression is 0/10 and anxiety is 0/10. This senior writer spoke with Sedrick Gonsalez, Metal Fabricating Shop Helper at [facility], . [facility] has 3 Assisted Family Homes that may "possibly" have an available bed for patient. The 3 homes are [facility]; [facility]; and [facility]. Sedrick will call the A Metal Fabricating Shop Helper Sunday with an update of the "possible" available beds. A: Patient is cooperative, disheveled, guarded, anxious, restricted affect, dysthymic, tangential, limited insight, poor judgment. P: Follow the care plan, coordinate with out-patient providers.
--- NOTE | 2017-02-16 20:19 | NUR ---
EVENING NURSE NOTE [id number]: Pt was in his bed at the beginning of the shift, coming out a few times to watch TV for extended periods of time. Pt has asked about his placement at [facility], but was told that we do not yet know where he will be going, and that the insurance company is working on finding a room for him. Pt thanked me and has been appropriate in his speech and manners. Pt monitored q15 min for safety, location and accountability.
[2017-02-16] MEDS: Insulin GLARgine 100 Unit/mL Syringe SUBQ SCH (20:41)
--- NOTE | 2017-02-16 21:53 | NUR ---
behavior: pt.'s blood glucose was 116, pt. lying in bed, did not want to come out to dining room for snack, affect flat, mood depressed.
[2017-02-17] MEDS: Insulin LISPRO Medium-Dose Scale SUBQ SCH ×4 (08:08→21:01)
--- NOTE | 2017-02-17 11:16 | NUR ---
day shift nursing note-Psychosis. S/O-"Can you get the urinal for me?" Pt. denies any hallucinations. He is cooperative and pleasant. He does not like to come out of his room to go to groups or do activities with his peers. He has a flat affect. He prefers to keep to himself. A-Paranoid. Lack of insight. Isolative. P-Monitor for safety per protocol. Assess efficacy of meds to manage psychosis. Encourage engagement in milieu activities.
--- NOTE | 2017-02-17 12:39 | PROG NOTE ---
[address] [address] PROGRESS NOTE PATIENT: SHARRI YOUNG : 1950 MR#: [id number] ADMIT: 01/05/2017 JOB ID: [id number] DATE: 02/17/2017 CHIEF COMPLAINT: "I am doing well." This per patient report. HISTORY OF PRESENT ILLNESS: As stated above, the patient identified that he does believe that things are going well. He denies any evidence of current distress. He made intermittent eye contact throughout the course of interview and remains periodically isolative to his room. He was seen in the day area yesterday afternoon and indicated that he feels more comfortable with some of the patients. OBJECTIVE: On mental status exam, he was bright, cooperative, interactive. He maintained good eye contact. His speech was of normal tone, frequency, and volume. His mood was neutral. Affect was congruent. His thought process showed no evidence of racing thoughts. There is some evidence of thought blocking on interview with hesitancy and paucity of speech. He continues to perseverate on placement issues. He denies any evidence of suicidal or homicidal ideation. No evidence of active hallucinations. He does appear to be consistently delusional with beliefs that he is telekinetically communicating with his , whom he has been to since the age of [age]. He was alert, oriented to time and place. His attention and concentration are fleeting. Insight and judgment are poor. PHYSICAL EXAMINATION: Vital signs of current: 36.3, pulse 88, respirations 16, BP 106/67. MEDICATION REVIEW: Includes: Prolixin Decanoate 25 mg, last injection February 09, 2017, next injection scheduled on the . Insulin Lantus 35 units q.h.s. with sliding scale, last given this morning 5 units subcu. Prolixin 5 mg b.i.d., aspirin 81 mg daily, lisinopril 10 mg daily. ASSESSMENT: [place] I: Schizophrenia, paranoid type. [place] II: Deferred. [place] III: 1. History of hypertension. 2. History of non-insulin dependent diabetes. [place] IV: Stressors are noted for chronic disposition issues. [place] V: Global Assessment of Functioning of current 30. PLAN: 1. Continuation of all medications noted. 2. Continuation of disposition planning with contact with the guardian. 3. Continuation of the MR 14 as noted.
--- NOTE | 2017-02-17 16:20 | NUR ---
Wharf Tally Clerk/Counselor S:"I want to stay in here." O: Patient denies any SI or HI, no auditory or visual hallucinations. No anxiety or depression. A: Patient has isolated to his room, and has not participated in any activities. Patient is isolative but friendly when spoken to. P: Follow care plan and coordinate with outpatient providers.
--- NOTE | 2017-02-17 16:47 | NUR ---
Observations 0700 to 1900 Pt did not attend community meeting. Pt did not attend recreational activities. Pt did not eat a snack. Pts behavior remains same as previous shift, resting in room and not interacting with peers. Breakfast: 0%. Lunch: 100%. Staff completed 15 min close observations as ordered.
[2017-02-17] MEDS: Insulin GLARgine 100 Unit/mL Syringe SUBQ SCH (20:57)
--- NOTE | 2017-02-17 21:47 | NUR ---
Nurses Note Evening Patient has been pleasant upon approach with a blunted affect. He has been isolating to his room except for dinner which he ate 100% with adequate fluids. Patient insists that he showers only every 3 days and has refused assist if it is not his day.His hygiene has been poor except on those days. Patient does transfer to the bedside commode and uses a urinal well. His blood sugars have been 104 and 112 at dinner and at bedtime. Will continue to encourage improved socialization skills and independence in ADL's.Maintain q 15min. checks for safety and support. Addendum: 02/17/17 at 9966 by YU DOLL RN Amended: Links added.
--- NOTE | 2017-02-18 06:05 | NUR ---
nursing, nights, 11-7 s/o- has appeared to sleep after 1999. bs is 82 at 0300. received some crackers and returned sleep. assessed q 15 minuets. a- improved sleep, no apparent physical distress. p- monitor behavior/emotional state, quality, times and amount of sleep, use and effect of medication. darian
[2017-02-18] MEDS: Insulin LISPRO Medium-Dose Scale SUBQ SCH ×4 (07:52→21:47)
[2017-02-18 10:04] VITALS: BP 120/74; PULSE 68; RESP 16
--- NOTE | 2017-02-18 10:17 | NUR ---
Nursing Days Morning BG was 97 requiring half dose of his nutritional insulin. He denied talking with his this morning but did state he talked to her a lot last night. His conversations to his imaginary are reported to happen "telekinetically" in his head. Pt ate breakfast, he did not attend group but he is out watching TV this morning. He reports feeling "fine". He allowed lotion to be applied to his lower legs only. He declined offered shower. Addendum: 02/18/17 at 1303 by YONO STEVENSON RN Noon BG 262 extra coverage of 5 units given.
--- NOTE | 2017-02-18 14:51 | PROG NOTE ---
[address] [address] PROGRESS NOTE PATIENT: SHARRI YOUNG : 1950 MR#: [id number] ADMIT: 01/05/2017 JOB ID: [id number] DATE: 02/18/2017 CHIEF COMPLAINT: "I spoke with my this morning." This is per patient report. HISTORY OF PRESENT ILLNESS: As stated above, the patient did identify that he was speaking again this morning with his telekinetically and smiled throughout the course of conversation. He reports that he feels that she is excited about his return back to [place]. He continues to be pleasant, cooperative. He was seen multiple times throughout the day yesterday in the Day Area. He reports that he has been compliant with medications. This is confirmed by documentation. OBJECTIVE: On mental status exam, he was cooperative. He was dressed in scrubs. He indicated that he had eaten breakfast and returned back to his room. He has not showered today, but he indicates that he prefers to shower every other day. His speech is of normal tone, frequency, and volume. His mood is neutral. Affect was congruent. His thought process showed no evidence of racing thoughts, flight of ideas, loose or disconnected thinking. He continues to have perceptual distortion and believes that he speaks with his , whom he met at the age of [age] telekinetically. He denies any evidence of suicidal/homicidal ideation. No evidence of active hallucinations. He was alert, oriented to Med list same from prior Assessment [place] 1: Schizophrenia Paranoid [place] 2: none [place] 3: History of HTN, IDDM [place] 4: snf disposition planning [place] 5: 35 Plan: 1. Continue all meds same 2. Continue DC planning as prior. MTDD
--- NOTE | 2017-02-18 16:33 | NUR ---
Legal Counsel/Counselor S/O: Patient has been in his room for most of the day, and appeared to fall asleep in his wheelchair when he was out on the unit. No SI or HI, denies any auditory or visual hallucinations, and no anxiety or depression. A: Patient is disheveled, confused, delusional. He is isolative and dysthymic. P:Follow care plan and coordinate with outpatient providers.
--- NOTE | 2017-02-18 16:36 | NUR ---
Observations 0700 - 1900 Pt affect and mood remained same as previous shifts. Pt was in his room most of the shift sitting in his wheelchair and/or laying in bed. Pt came out for meals and snack and then returning to his room. Pt was pleasant, polite and cooperative when approached. Pt maintained behavior throughout the shift. Pt attended meals in D.R. and ate 75% of his meals. Pt ate snack. Pt declined to attend unit activities. Pt attended community meeting and set a daily goal. Pt was observed every 15 minutes through the shift as ordered.
[2017-02-18] MEDS: Insulin GLARgine 100 Unit/mL Syringe SUBQ SCH (21:26)
--- NOTE | 2017-02-18 22:03 | NUR ---
Nurses Note Evening Patient Has been isolating to his room,refused dinner but a few bites and 1/2 container of milk. His BS have been 186 and 118 at dinner and HS.He accepted snacks tonight before bed and will check BS in the auto customize painter hour. Patient continues to have hand tremors at rest and with movement. Will maintain q 15min. checks for safety and support. Addendum: 02/18/17 at 2216 by YU DOLL RN Amended: Links added.
--- NOTE | 2017-02-19 06:01 | NUR ---
Nursing Night [id number] Pt slept 7.5 hrs waking up throughout the night without s/sx of distress. 0300 BG 177, no s/sx of hypo/hyperglycemia noted. No behavioral issues, outburst or suicidal ideations. Continue to monitor for emotional well being, behavioral issues, and Q15 min checks for safety. Care continues.
[2017-02-19] MEDS: Insulin LISPRO Medium-Dose Scale SUBQ SCH ×4 (08:06→19:55)
[2017-02-19 12:56] VITALS: BP 147/81; PULSE 82; RESP 16
--- NOTE | 2017-02-19 12:56 | NUR ---
Nursing Days Pt requested to shower this morning which he did independently. He did request to have help putting on his scrub bottoms. Pt sitting out in the main area watching television and enjoyed the visit from the therapy dog. BG WNL with no extra coverage required. Taking medication as ordered.
--- NOTE | 2017-02-19 15:26 | PROG NOTE ---
[address] [address] PROGRESS NOTE PATIENT: SHARRI YOUNG : 1950 MR#: [id number] ADMIT: 01/05/2017 JOB ID: [id number] DATE: 02/19/2017 CHIEF COMPLAINT: "I am doing good." This is per patient report. HISTORY OF PRESENT ILLNESS: As stated above, the patient did identify that he feels that things are going well. He remains isolative to his room. He reportedly did sleep well last evening and remains without any significant evidence of distress. OBJECTIVE: On mental status exam, he was bright, cooperative, interactive. He denies any evidence of acute difficulties. His speech is of normal tone, frequency, and volume. His mood neutral. Affect congruent. His thought process shows no evidence of racing thoughts, flight of ideas. He continues to be mildly loose at times on conversation. Periodically does identify that he is continuing to return to the [facility] with his . He denies any active suicidal/ homicidal ideation. No evidence of active hallucinations. He is quite delusional, but this is baseline. He denies any evidence of difficulties with his attention and concentration. Insight and judgment are deemed poor. PHYSICAL EXAM: Vital signs, current: Temperature is 36.2, pulse 68, respirations 16, BP 120/74. MEDICATION REVIEW: Includes: 1. Prolixin 5 mg b.i.d. 2. Lisinopril 10 mg daily. 3. Insulin Lantus 35 units q.h.s. 4. Prolixin Decanoate 25 mg q.2 weeks. Last injection on the . ASSESSMENT: [place] I. Schizophrenia, paranoid type. [place] II. Deferred. [place] III. 1. History of hypertension. 2. History of insulin dependent diabetes. [place] IV. Stressors are significant for ongoing disposition planning. [place] V. Global Assessment of Functioning current 35. PLANS: 1. Recommendations for continuation of all medications same. 2. Recommendations for disposition planning as noted.
--- NOTE | 2017-02-19 17:47 | NUR ---
Airveyor Operator/Counselor S/O: Patient has been in his room for most of the day. No SI or HI, denies any auditory or visual hallucinations, and no anxiety or depression. patient did take a shower by himself this morning. A: Patient continues to be disheveled, confused, delusional. He is isolative and dysthymic. P:Follow care plan and coordinate with outpatient providers. Addendum: 02/20/17 at 0833 by DRE [facility] This instructional writer spoke to Sedrick, Airveyor Operator with Damian. She is still actively pursuing housing possibilities. Sedrick was able to locate one potential housing option with [facility] in [place]. #[phone]. This instructional writer left a voice message with Prachi at [facility], and will follow up on 02/20/2017. 30 days of clinical progress notes were faxed to Sedrick, who will securely email those to Prachi.
--- NOTE | 2017-02-19 18:03 | NUR ---
Observations 0700 - 1900 Pt affect and mood remained same as previous shifts. Pt was in his room most of the shift sitting in his wheelchair and/or laying in bed. Pt came out for meals and snack and then returning to his room. Pt was pleasant, polite and cooperative when approached. Pt maintained behavior throughout the shift. Pt attended meals in D.R. and ate 75-90% of his meals. Pt ate snack. Pt declined to attend unit activities. Pt set a daily goal. Pt took a shower with some assistance. Pt was observed every 15 minutes through the shift as ordered.
--- NOTE | 2017-02-19 18:35 | NUR ---
EVENING NURSE NOTE [id number]: Pt was in his room at the beginning of the shift, resting in his bed. PT came out to watch sports on TV before and after dinner. Pt has been pleasant and appropriate. Pt monitored q15 min for location, safety, and accountability.
[2017-02-19] MEDS: Insulin GLARgine 100 Unit/mL Syringe SUBQ SCH (20:01)
--- NOTE | 2017-02-20 06:19 | NUR ---
NOC PT slept for about 6.25+ hours. Currently still asleep. BG checked at 0300 and was 107. Pt requested urinal to be emptied at that time. PT was appropriate. Denies any SI/HI or hallucinations. 15 minute checks done routinely through the night for safety and well being. Will continue with current POC.
[2017-02-20] MEDS: Insulin LISPRO Medium-Dose Scale SUBQ SCH ×4 (09:04→21:41)
--- NOTE | 2017-02-20 13:43 | NUR ---
Nursing Days Pt reports feeling "sleepy" today but otherwise "fine". He did not eat his breakfast but did eat his lunch. AM BG was 95 and noon BG was 82, he received half of his nutritional dose of insulin at those times. Pt taking medications as scheduled. Isolating to his room.
[2017-02-20 14:04] VITALS: BP 105/60; PULSE 79
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
--- NOTE | 2017-02-20 14:48 | NUR ---
Automatic Tire Tester/Counselor S:"I didn't want breakfast." O: Patient denies any SI or HI, no AVH, no anxiety or depression. A: Patient has stayed in his room for most of the day. Disheveled, flat affect, and wanted to sleep. This magazine writer called [facility] for an update on placement and was informed that [facility] was unable to accept the patient, due to not being able to meet his needs. This magazine writer also spoke with Prachi at [facility], and was informed that there will be a decision in the morning on whether the patient will be accepted. P:Follow care plan and coordinate with outpatient providers.
[2017-02-20] MEDS: Insulin GLARgine 100 Unit/mL Syringe SUBQ SCH (20:16)
--- NOTE | 2017-02-20 22:03 | NUR ---
NIGHT NURSE NOTE [id number]: Pt was in bed at the beginning of the shift. Pt stated, It takes too much effort to get out of bed to come out for a snack. Cant you just bring one to me. Pt stayed in his room through snack time. Pt monitored q15 min for location, safety, and accountability. Addendum: 02/21/17 at 0542 by YU SIERRA RN Pt stayed in his bed through the night, but was awake most of the time. He slept 2.5+ hours. Pt monitored q15 min for location, safety, and accountability.
[2017-02-21] MEDS: Insulin LISPRO Medium-Dose Scale SUBQ SCH ×4 (08:58→21:07)
--- NOTE | 2017-02-21 12:28 | PROG NOTE ---
[address] [address] PROGRESS NOTE PATIENT: SHARRI YOUNG : 1950 MR#: [id number] ADMIT: 01/05/2017 JOB ID: [id number] DATE: 02/21/2017 CHIEF COMPLAINT: "Am I leaving today." This is per patient report. HISTORY OF PRESENT ILLNESS: The patient did inquire about possible discharge. I have informed him that we continue to petition with the guardian and Damian caseworker intake about placement in assisted living programs. He reportedly was seen in the day area and smiled appropriately on communication. MENTAL STATUS EXAMINATION: His speech is of normal tone, frequency, and volume. His mood is neutral. Affect is congruent. His thought process shows no evidence of racing thoughts, loose or disorganized thinking. His thought content: There was no evidence of current suicidal, homicidal ideation. No evidence of active hallucinations, delusions of current. He denies any evidence of limitations of attention, concentration. Insight and judgment are fair. PHYSICAL EXAMINATION: VITAL SIGNS: Current, temperature is 36.4, pulse 79, blood pressure 105/60. MEDICATION REVIEW: 1. Prolixin Decanoate q.2 weeks, 25 mg, last injection on the . Next injection scheduled on the . 2. Insulin 35 units. 3. Prolixin 5 mg b.i.d. 4. Aspirin 81 mg daily. 5. Lisinopril 10 mg daily. ASSESSMENT: AXIS I: Schizophrenia, paranoid type. AXIS II: Deferred. AXIS III: 1. History of hypertension. 2. History of insulin-dependent diabetes. AXIS IV: Stressors are noted for continuation of pursuit of placement options as noted.
--- NOTE | 2017-02-21 14:22 | NUR ---
Manager Assisted Living/Counselor: S: "Am I going to go today?" O: Patient slept 2.5 hours last night per staff. Patient denies S/I and H/I. He also denies auditory and visual hallucinations. Depression is "no" and anxiety is "no." This commercial loan underwriter spoke with Kingsley from [facility], [address] [place] [address], in [place], [place], [address], , and they have an available bed for patient this Sunday morning. This commercial loan underwriter left a voice message for Cathie Crystal, nurse for [place], [place], to get an update on documentation she needs about patient.This commercial loan underwriter faxed Cathie, the patient's medication list and History & Physical to fax #[phone]. This commercial loan underwriter also spoke with Damian Chavez Manager Assisted Living, , gave her an update that patient has been accepted to [facility]. This commercial loan underwriter left a voice message for patient's guardian, Christian, . This commercial loan underwriter spoke with Yvonne Gama [facility] Risk Management, and will be coordinating transportation for patient to [facility]. A: Patient is cooperative, disheveled, guarded, anxious, restricted affect, dysthymic, tangential, paranoid, limited insight, poor judgment. P: Follow the care plan, coordinate with out-patient providers.
--- NOTE | 2017-02-21 17:38 | NUR ---
NURSE NOTE DAY Mood: "I'm fine." Denies depression, anxiety. Affect: Euthymic. Behavior: Pt watching television in common area in morning. Up for meals. Pleasant and cooperative with staff. Thought Content/Process: "My identity is being transferred to a body in [place], [place]." Delusional, bizarre. Denies SI, HI. Denies AH, VH. PRN/NURS Notes: Applied lotion to legs at 1230. Spoke with labor service representative from an adult family home that was willing to accept him and said that he would not go to a place with a name like that. Referred issue back to case management.
[2017-02-21] MEDS: Insulin GLARgine 100 Unit/mL Syringe SUBQ SCH (21:07)
--- NOTE | 2017-02-21 23:12 | NUR ---
Pt was in bed from the beginning of the shift on through bedtime. Pt did not want to come out for HS snack. Pt replied that he had a good day and was settled in his bed. Pt monitored q15 min for safety, location and accountability.
[2017-02-22] MEDS ORDERED: FLUPHENAZINE DECANOATE 25 MG/ML IM SCH (08:30)
[2017-02-22] MEDS: Insulin LISPRO Medium-Dose Scale SUBQ SCH ×4 (08:41→22:00)
[2017-02-22] MEDS ORDERED: LISI10TA PO (09:51)
[2017-02-22 10:20] VITALS: BP 121/66; PULSE 82; RESP 14
--- NOTE | 2017-02-22 13:58 | PROG NOTE ---
[address] [address] PROGRESS NOTE PATIENT: SHARRI YOUNG : 1950 MR#: [id number] ADMIT: 01/05/2017 JOB ID: [id number] DATE: 02/22/2017 CHIEF COMPLAINT: "I get to leave tomorrow." This per patient report. HISTORY OF PRESENT ILLNESS: As stated above the patient did identify his acknowledgement that he will be discharged tomorrow. He indicated that he is looking forward to it and has no evidence of concerns. OBJECTIVE: On mental status exam, he was cooperative, polite. He smiled throughout the course of conversation. His speech was of normal tone, frequency, and volume. His mood was neutral. Affect was congruent. He denied any evidence of difficulties with his thought processing and appeared to be perseverating about the plan and intent of discharge. He denied any evidence of suicidal, homicidal ideation. No evidence of active hallucinations. He remains delusional, with fixed delusions of telekinetic properties and benz. He was alert, oriented to time and place. Attention and concentration intact. Insight and judgment are poor. PHYSICAL EXAMINATION: Vital signs are current: Temperature is 36.2, pulse 82, respirations 14, BP 121/66. MEDICATION REVIEW: Includes: 1. Prolixin Decanoate 25 mg q.14 days IM. 2. Prolixin tablets 5 mg b.i.d. 3. Aspirin 81 mg daily. 4. Lisinopril 10 mg daily. ASSESSMENT: [place] I: Schizophrenia, paranoid type. [place] II: Deferred. [place] III: 1. History of hypertension. 2. History of insulin-dependent diabetes. [place] IV: Stressors are noted for chronic mental health issues, disposition planning. [place] V: Global Assessment of Functioning of current 40. PLAN: 1. Recommendations to discharge tomorrow with appropriate transport to assisted living program in [place]. 2. Continuation of all medications noted.
--- NOTE | 2017-02-22 16:24 | NUR ---
Obs Dayshift Pt spent most of the shift in his room wither sitting in his chair or in bed. Pt did watch a little TV just before lunch. Pt is looking forward to DC tomorrow, but refusing to shower until DC. Pt is quite malodorous, and disheveled in appearance. Pt has very poor ADL's, Good meals
--- NOTE | 2017-02-22 18:40 | NUR ---
Nursing Notes [id number] S: "Do I really get to leave tomorrow?" "I think it sounds really nice". O: Patient refusing lunch today. Up for breakfast and dinner, but remaining in bed most of the day. A: Patient cooperative with care, taking medications as scheduled. P: Monitor for safety and response to treatment. Follow plan of care.
[2017-02-22] MEDS: Insulin GLARgine 100 Unit/mL Syringe SUBQ SCH (21:46)
--- NOTE | 2017-02-23 00:22 | NUR ---
Observations 1900 to 0700 Pt did not attend wrap up group. Pt did not eat a snack. Pt showered. Pt remained in room throughout shift. Pt appeared asleep at 2230 and has remained asleep. Pt maintained behavioral control and showed no signs of abnormal behavior. Pt respirations were observed when asleep. Staff completed 15 min close observations as ordered.
--- NOTE | 2017-02-23 05:17 | NUR ---
Nursing Noc Pt noted to have worse than usual sleep this shift, possibly r/t expected discharge in am. Pt showered this evening with one person assist. Taking medications as prescribe. First asleep at 2230 until 0315. then asleep again at [id number]. Zero PRNs requested this shift. Continuing to monitor mood, behavior and emotional state. Q15 minute safety checks throughout the shift. BHCP
[2017-02-23] MEDS: Insulin LISPRO Medium-Dose Scale SUBQ SCH (07:55)
--- NOTE | 2017-02-23 08:59 | NUR ---
Nursing Discharge Note: Patient cooperative with discharge process. Acknowledges understanding of d/c instructions and has a copy with them upon leaving unit at 0815. Belongings accounted for and with patient. Prescriptions with patient. Patient denies harmful thoughts and hallucinations at this time. Escorted to the bus station by unit staff.
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
--- NOTE | 2017-02-23 14:48 | NUR ---
Tapper Helper/Counselor: S: "The weather is nice outside today." O: Patient slept 5.5 hours last night per staff. Patient denies S/I and H/I. He also denies auditory and visual hallucinations. Depression is "no" and anxiety is "no." This program writer spoke with Kingsley from [facility], [address] [place] [address], in [place], [place], [address], , and she is expecting patient in their home later today around 3:00pm. This program writer also spoke with Damian Chavez Tapper Helper, , gave her an update that patient is on his way to [facility]. This program writer spoke to patient's guardian, Christian, , and Christian is coordinating out-patient follow-up appointments for patient upon discharge/return to [place], [place]. All discharge paperwork was faxed to Kingsley at [facility] upon patient's discharge. A: Patient is cooperative, disheveled, limited insight, limited judgment. P: Follow the care plan, coordinate with out-patient providers.
== END 2017-02-23 08:15 | disposition home or self-care (01) | DRG 885 ==
LOC: MHC 03:19
PROVIDERS: ADMIT Psychiatry & Neurology Psychiatry; ATTEND Psychiatry & Neurology Psychiatry
DX: F20.0 Paranoid schizophrenia (principal); E11.9 Type 2 diabetes mellitus without complications; Z79.4 Long term (current) use of insulin; Z91.14 Patient's other noncompliance with medication regimen; Z99.3 Dependence on wheelchair; I10 Essential (primary) hypertension